=== PATIENT | female | born 1950 | race Caucasian/White ===

== ENCOUNTER → 2016-12-24 | Outpatient (CLI) | payer OTHER, BC ==
[~2016-12-24] MED LIST: ASPI81TA21 PO; BND25 PO; CALC1TAB9 PO; COEN90TA PO; CTP/1 PO; ERGO500037 PO; FURO-85 PO; GABA-112 PO; LOSA1TAB38 PO; METO1TAB69 PO; MULT-190 PO; OMEG10007 PO; POTA20TA16 PO; VERA1TAB PO; VITACAP37 PO; [UNRECOGNIZED DRUG - OTHER] PO
[2016-12-24 11:12] LABS: INFLUENZA A PCR Neg for Influ A (NEG); INFLUENZA B PCR Neg for Influ B (NEG)
== END | disposition home or self-care (01) ==
LOC: C.LAB1850 08:57
PROVIDERS: ATTEND Family Medicine
DX: R05 Cough (principal)

== ENCOUNTER → 2016-12-24 | Outpatient (CLI) | payer OTHER, BC ==
--- NOTE | 2016-12-24 09:30 | DIAGNOSTIC IMAGING REPORT ---
CHEST 2 VIEWS ROUTINE CLINICAL HISTORY: R05 Cough cough x 3 weeks E X0D E [id number] cough. Fever. COMPARISON STUDY: 03/17/2015 FINDINGS: The bones soft tissues and hemidiaphragms are normal. The cardiomediastinal silhouette is normal. The lungs are clear. The pulmonary vasculature is normal. IMPRESSION: Negative chest. Electronically signed by: Dong Zheng M.D. 12/24/2016 9:28 AM Dictated Date/Time: 12/24/2016 9:28 AM
== END | disposition home or self-care (01) ==
LOC: C.RAD1850 09:08
PROVIDERS: ATTEND Family Medicine
DX: R05 Cough (principal)

== ENCOUNTER → 2017-01-09 | Outpatient (CLI) | payer OTHER, BC ==
[2017-01-09 13:08] LABS: URINE APPEARANCE CLEAR (CLEAR); URINE BILIRUBIN NEG (NEG); URINE COLOR YELLOW; URINE NITRITE NEG (NEG); URINE PH 6.5 (4.5-7.5); UROBILINOGEN NEG (NEG)
[2017-01-09 13:10] LABS: MANUAL MICROSCOPIC REQUIRED? NO; REVIEW REQ? NO
[2017-01-09 13:11] LABS: HEMATOCRIT 41.5 % (37-47); MEAN CELL VOLUME 96.7 fL (80-100); MEAN CORPUSCULAR HEMOGLOBIN 31.9 pg (25-34); MEAN PLATELET VOLUME 11.4 fL (7.4-10.4); PLATELET COUNT 250 K/uL (130-400); RED BLOOD COUNT 4.29 M/uL (4.2-5.4); WHITE BLOOD COUNT 5.56 K/uL (4.8-10.8)
--- NOTE | 2017-01-09 13:21 | DIAGNOSTIC IMAGING REPORT ---
CHEST 2 VIEWS ROUTINE HISTORY: Cough. COMPARISON: Chest 12/24/2016. FINDINGS: Cardiac silhouette remains mildly enlarged. No focal lung consolidations to suggest pneumonia. No pleural effusions. No pneumothorax. IMPRESSION: No significant change compared to the prior study. No acute process. Stable mild cardiomegaly. Electronically signed by: Lobo Fernandez M.D. 01/09/2017 1:19 PM Dictated Date/Time: 01/09/2017 1:18 PM
[2017-01-09 13:30] LABS: BLOOD UREA NITROGEN 18 mg/dl (7-18); CREATININE 0.93 mg/dl (0.60-1.20)
[2017-01-09 13:43] LABS: ESTIMATED AVERAGE GLUCOSE 105 mg/dl; HA1C FLAG Normal (Normal)
[2017-01-09 13:57] LABS: BLOOD UREA NITROGEN 18 mg/dl (7-18); BUN/CREATININE RATIO 20.4 (10-20); CARBON DIOXIDE 25 mmol/L (21-32); CHLORIDE 104 mmol/L (98-107); CHOLESTEROL 201 mg/dl (0-200); CREATININE 0.89 mg/dl (0.60-1.20); GLUCOSE 89 mg/dl (70-99); POTASSIUM 3.9 mmol/L (3.5-5.1); SODIUM 140 mmol/L (136-145); URIC ACID 5.2 mg/dl (2.6-7.2)
[2017-01-09 14:00] LABS: CHOLESTEROL/HDL RATIO 3.3; HDL CHOLESTEROL 61 mg/dl; LDL CHOLESTEROL CALCULATED 101 mg/dl; PHOSPHORUS 2.7 mg/dl (2.5-4.9); TRIGLYCERIDES 196 mg/dl (0-150); VERY LOW DENSITY LIPOPROT CALC 39 mg/dl
[2017-01-09 14:10] LABS: CREATININE, URINE < 13.0 mg/dl; URINE TOTAL PROTEIN < 5.0 mg/dl (0-11.9)
--- NOTE | 2017-01-14 10:38 | CODING QUERY MEDICAL NECESSITY ---
SUPPORTING DIAGNOSIS NEEDED A supporting diagnosis is required for the test/procedure performed on this patient in order for us to be reimbursed by the patient's insurance. Please provide a supporting diagnosis for the following test/procedure listed below next to the test name along with your signature. *If there is no additional diagnosis for this patient that would support the following test/procedure please document that below next to the test/procedure. Test(s)/Procedure(s) that require a supporting diagnosis: * GLYCATED HEMOGLOBIN DIAGNOSIS: * DOS: 01/09/17 Provider Signature: Date: Thank you Alisa Montano Health Information Management Once completed, please kindly fax back to [phone] For questions please call [phone]
== END | disposition home or self-care (01) ==
LOC: C.LAB1850 11:44
PROVIDERS: ATTEND Family Medicine
DX: R05 Cough (principal); M54.16 Radiculopathy, lumbar region; M48.06 Spinal stenosis, lumbar region; E78.1 Pure hyperglyceridemia; E78.5 Hyperlipidemia, unspecified; M10.9 Gout, unspecified; E55.9 Vitamin D deficiency, unspecified; I12.9 Hypertensive chronic kidney disease with stage 1 through stage 4 chronic kidney disease, or unspecified chronic kidney disease; R60.9 Edema, unspecified; N18.2 Chronic kidney disease, stage 2 (mild); R73.01 Impaired fasting glucose

== ENCOUNTER → 2017-01-13 | Outpatient (CLI) | payer OTHER, BC ==
--- NOTE | 2017-01-13 13:10 | DIAGNOSTIC IMAGING REPORT ---
LUMBAR SPINE MRI HISTORY: LUMBAR SPINAL STENOSIS, RADICULOPATHY TECHNIQUE: Multiplanar multisequence MRI of the lumbar spine was performed without the use of contrast. COMPARISON: Lumbar spine 01/14/2012. FINDINGS: For the purpose of the report the L5-S1 disc space will be located on axial image 27 of 30. There is stable 3 mm of anterolisthesis of L3 on L4. There is moderate to severe disc space narrowing at L4-L5. There are severe disc space narrowing at L1-L2 with degenerative endplate changes. There is mild disc space narrowing at L3-L4. The conus terminates at the T12 level. Mild dextroscoliosis. L5 is measured to be a transitional vertebra with partial sacralization and pseudarthrosis of the right transverse process. This remains unchanged. The visualized retroperitoneal soft tissues are unremarkable. L1-L2: Small broad-based posterior disc bulge without significant central canal narrowing. There is moderate left-sided neural foraminal narrowing. L2-L3: No significant central canal or neural foraminal narrowing. L3-L4: Broad-based posterior disc bulge with ligamentum and facet hypertrophy resulting in severe central canal narrowing. The thecal sac measures 4 mm in AP diameter. There is mild left-sided neural foraminal narrowing. L4-L5: Broad-based posterior disc bulge with right greater than left facet hypertrophy. There is associated diffuse epidural lipomatosis resulting in moderate compression/deformity of the thecal sac. However, the bony canal is only mildly compromised. There is severe right-sided neural foraminal narrowing. L5-S1: No significant central canal or neural foraminal narrowing. IMPRESSION: 1. A broad-based posterior disc bulge with ligamentum and facet hypertrophy at L3-L4 resulting in severe central canal or neural foraminal narrowing. 2. A broad-based posterior disc bulge with right greater than left facet hypertrophy at L4-L5 with only mild compromise of the bony central canal. However, there is associated diffuse epidural lipomatosis at this location resulting in moderate compression deformity of the thecal sac. There is also severe right-sided neural foraminal narrowing. 3. Grade I anterolisthesis of L3 on L4, unchanged. 4. Mild dextroscoliosis. 5. Additional findings as described above. Electronically signed by: Lobo Fernandez M.D. 01/13/2017 1:09 PM Dictated Date/Time: 01/13/2017 12:52 PM
== END | disposition home or self-care (01) ==
LOC: C.OPENMRI 10:26
PROVIDERS: ATTEND Physical Medicine & Rehabilitation
DX: M48.06 Spinal stenosis, lumbar region (principal); M51.16 Intervertebral disc disorders with radiculopathy, lumbar region; M43.16 Spondylolisthesis, lumbar region

== ENCOUNTER → 2017-02-07 | Outpatient (CLI) | payer OTHER, BC ==
--- NOTE | 2017-02-07 11:11 | DIAGNOSTIC IMAGING REPORT ---
ULTRASOUND OF THE THYROID GLAND CLINICAL HISTORY: Palpable lump in the neck. COMPARISON STUDY: No priors. TECHNIQUE: Real-time, grayscale, and color flow sonography of the thyroid gland is performed utilizing a high-frequency linear transducer. Images are reviewed in the transverse and longitudinal planes. FINDINGS: Right lobe: The right lobe of the thyroid gland is normal in size and homogeneous in echotexture, measuring 4.0 x 1.9 x 2.0 cm. Left lobe: The left lobe of the thyroid gland is normal in size and homogeneous in echotexture, measuring 3.8 x 1.6 x 2.1 cm. Isthmus: The thyroid isthmus is normal in appearance and measures 0.4 cm in AP diameter. Soft tissues: No abnormality is identified in the left lower neck at the site of palpable concern. No regional lymphadenopathy is identified. IMPRESSION: Unremarkable sonographic assessment of the thyroid gland. See above. Electronically signed by: Wilfredo Valentine M.D. 02/07/2017 11:10 AM Dictated Date/Time: 02/07/2017 11:08 AM
== END | disposition home or self-care (01) ==
LOC: C.ULTR 10:18
PROVIDERS: ATTEND Internal Medicine
DX: R22.1 Localized swelling, mass and lump, neck (principal)

== ENCOUNTER → 2017-03-14 | Outpatient (CLI) | payer OTHER, BC ==
[~2017-03-14] MED LIST changes: +ALBUAER INH; -BND25 PO; +COEN1CAP7 PO; +DIPH25CA5 PO; +FOLI1TAB7 PO; +LEVO50TA6 PO; +METO100T44 PO; -METO1TAB69 PO
--- NOTE | 2017-03-14 16:32 | MAMMOGRAPHY REPORT ---
BILATERAL DIGITAL SCREENING MAMMOGRAM TOMOSYNTHESIS WITH CAD: 03/14/2017 CLINICAL HISTORY: Routine screening. Patient has no complaints. TECHNIQUE: Breast tomosynthesis in addition to standard 2D mammography was performed. Current study was also evaluated with a Computer Aided Detection (CAD) system. COMPARISON: Comparison is made to exams dated: 03/13/2016 mammogram, 03/13/2015 mammogram, 03/26/2016 m ammogram, 03/26/2016 ultrasound, 03/10/2014 mammogram, and 03/09/2013 mammogram - [facility]. BREAST COMPOSITION: There are scattered areas of fibroglandular density in both breasts. FINDINGS: No suspicious masses, calcifications, or areas of architectural distortion are noted in e ither breast. There has been no significant interval change compared to prior exams. Bilateral nodu larity and bilateral benign-appearing calcifications are not significantly changed. IMPRESSION: ACR BI-RADS CATEGORY 2: BENIGN There is no mammographic evidence of malignancy. A 1 year screening mammogram is recommended. The p atient will receive written notification of the results. Approximately 10% of breast cancers are not detected with mammography. A negative mammographic repor t should not delay biopsy if a clinically suggestive mass is present. Rose Medina M.D. ah/:03/14/2017 16:11:22 Bar Captain: Maylin STAPELS)(M), [facility] letter sent: Normal 1/2 BI-RADS Code: ACR BI-RADS Category 2: Benign
== END | disposition home or self-care (01) ==
LOC: C.MAMM 09:23
PROVIDERS: ATTEND Internal Medicine
DX: Z12.31 Encounter for screening mammogram for malignant neoplasm of breast (principal)

== ENCOUNTER → 2017-04-04 | Outpatient (CLI) | payer OTHER, BC | END | disposition home or self-care (01) | LOC: C.LAB1850 12:45 | PROVIDERS: ATTEND Internal Medicine | DX: Z11.59 Encounter for screening for other viral diseases (principal); R06.02 Shortness of breath ==

== ENCOUNTER → 2017-05-09 | Outpatient (CLI) | payer OTHER, BC ==
--- NOTE | 2017-05-10 06:01 | PAP/PSG TECHNICIAN REPORT ---
[facility] Pearl Digger Polysomnogram Report Study name: None Report date: 05/10/2017 Study date: 05/09/2017 Referring Physician: WILFREDO MCKEON DO, DO Name: RIMMA GOODEN Interpreting Physician: Wilfredo Mckeon D.O. Date of : 1950 [place] Digger: DEDRICK Freeman. Sex: Female Age: 67 StudyType: PSG Weight: 283 lbs Height: 67 years, Height 4' 7" Neck Circum: 16.5 inches BMI: 65.77 Medications: ASPIRIN 81 MG, BENADRYL, CITRACAL, CLONIDINE 0.1 MG, CO Q 10 200 MG, FISH OIL, FOLIC ACID 400 MCG, FUROSEMIDE 20 MG, GABAPENTIN 100 MG, LEVOTHYROXINE 50 MCG, LOSARTAN 100 MG, METOPROLOL 100 MG, POTASSIUM CHLORIDE 20 MEQ, TRAMADOL 50 MG, VENTOLIN HFA, VERAPAMIL 80 MG, VIT D 80919 UNIT, VIT E, PRESER VISION Patient History 67 yr-old female here for a diagnostic sleep study in room 6. She has noticed being short of breath for about a year. Patients notices snoring and decreases in breathing at night. Patients Midkiff Sleepiness Scale Score is 8/24. Parameters Monitored NPSG: E1-M2, E2-M1, Fp1-M2, Fp2-M1, F3-M2, F4-M2, F4-M1, C3-M2, C4-M2, C4-M1, O1-M2, O2-M2, O2-M1, T3-M2, T4-M1, P3-M2, P4-M1, CHIN1, CHIN2, HR, EKG, Legs, PFLOW, SNOR, FLOW, CFLOW, Tidal Volume, THOR, ABDO, SpO2, PLTH, CPRESS, ETCO2 Wave, ETCO2, pH Sleep Architecture Sleep Stages Time at Lights Off 9:18:40 PM STAGES Time (min.) TST (%) Time at Lights On 5:49:40 AM Wake 123.0 -- Total Recording Time (TRT) 510.50 min. N1 50.5 13 Total Sleep Period (TSP) 489.0 min. N2 223.0 58 Total Sleep Time (TST) 387.5min. N3 53.5 14 Awake Time 123.0 min. REM 60.5 16 Wake after Sleep Onset 102.0 min. Sleep Efficiency (SE) 76 % Sleep Onset Latency (DWAN) 21.5 min. Number of Stage 1 Shifts None Awakenings 38 Stage Changes 158 Number of REM periods 17 REM 60.5 16 REM Latency 99.0 min. NREM 327.0 84 Body Position Analysis Supine Right Left Side Prone Vertical Total Sleep Time (min.) 0.0 12.0 111.0 123.00 327.3 3.1 Total Sleep Time (%) 0% 3% 29% 32 68% N/A% Total Sleep Time REM (min.) 0.0 0.0 19.5 None 41.0 0.0 Total Sleep Time NREM (min.) 0.0 12.0 91.5 None 223.5 0.0 Intermittent Wake (min.) 0.0 27.1 30.0 None 62.8 3.1 Total Sleep Period (%) 0% None None None None None Arousals Myoclonus (PLM) * Events Count Index Events Count Index Spontaneous 6 1 Events Awake (PLMW) 91 44.4 Respiratory 12 2.5 Events Asleep w/ Arousal (PLMA) 15 2.3 PLM 15 2 Events Asleep w/o Arousal (PLMS) 78 12.1 Snoring 26 4 Total Asleep 93 14.4 Total 59 9 Total 184 22 Respiratory Analysis * CA OA MA CH H RERA Total Count 0 21 0 0 121 0 142 Index 0.0 3.3 0.0 0 18.7 0 22.0 Mean Duration 0.0 20.2 0.0 0.00 19.6 0.0 19.7 Longest Duration 0.0 36.3 0.0 0.00 0.0 0.0 46.5 Respiratory Event Summary Total Supine ~Supine Right Left Prone REM NREM Apneas Count 21 N/A 21 0 8 13 18 3 Index 3.3 N/A 3 0.0 4.3 3 18 1 Hypopneas (4% Desat) Count 121 N/A 121 0 43 78 30 91 Index 18.7 N/A 19 0.0 23.2 17.7 29.8 16.7 Apneas & All Hypopneas Count 142 N/A 142 0 51 91 48 94 Index 22.0 N/A 22 0 28 21 47.6 17.2 Respiratory Events (Cat Wagon Operator+All Hyp+RERA) Count 142 N/A 142 0 51 91 48 94 Index 22.0 N/A 22 0.0 27.6 20.6 47.6 17.2 Respiratory Related Arousal Count 12 N/A 16 0 10 6 7 9 Index 2.5 N/A 2 0 5 1 7 2 Snoring Analysis Supine Right Left Prone REM NREM Total Snore duration 98.6 min Snores count N/A 21 1,114 2,743 572 3,306 3,878 Snore mean duration 1.5 Sec Snores index N/A 105 602 622 567.3 606.6 600.5 TST with snoring (%) 25.4% Desaturation Event Summary: Minimum %SpO2 Event Count Mean/Min/Max Duration(sec.) Desaturation Index % Time In Bed > 90 162 24.0 / 7.0 / 60.0 30.9 63.5 86 - 90 56 20.2 / 5.0 / 51.0 21.4 31.6 81 - 85 8 13.9 / 6.8 / 22.0 41.8 2.3 76 - 80 5 11.5 / 6.5 / 22.0 34.2 1.8 71 - 75 0 N/A 0.0 0.7 66 - 70 0 N/A 0.0 0.1 61 - 65 0 N/A 0.0 0.0 56 - 60 0 N/A 0.0 0.0 51 - 55 0 N/A 0.0 0.0 < 50 0 N/A 0.0 0.0 Total REM NREM Awake <50% 0.0 min. 0.0 min. 0.0 min. 0.0 min. 51 - 60% 0.0 min. 0.0 min. 0.0 min. 0.0 min. 61 - 70% 0.6 min. 0.5 min. 0.1 min. 0.0 min. 71 - 80% 12.1 min. 8.4 min. 1.7 min. 2.0 min. 81 - 90% 168.3 min. 26.2 min. 132.0 min. 10.0 min. 91 - 100% 315.0 min. 25.1 min. 192.0 min. 97.9 min. Average 91 87 91 93 Minimum SpO2 66 66 69 70 Desaturation Event Index 22.4 43.6 21.1 16.1 # Desat. Events below 89% 130 43 76 11 Time(%) with Saturation below 89% 17.4 5.2 10.5 1.7 Time(min.) with Saturation below 89% 86.1 25.6 52.3 8.2 Time (mins) REM (mins) NREM (mins) % of TST SpO2 Below 90% 150 44 N106 29.6 SpO2 Below 88% 43 0 0 12 Heart Rate Analysis Min (bpm) Max (bpm) Average (bpm) Awake 48 127 67 NREM 54 86 64 REM 57 86 66 Overall 54 86 64 Supplemental O2 Values Minimum O2 level: None Value Start Time End Time Pearl Digger Comments Mrs. Gooden slept in the right, left, and supine positions. PVC's noted.No PLMs noted. No bruxism noted. Snoring was noted and scored as a 3 on a scale of 0 through 5. (0=no snoring, 5=snoring loud enough to be heard through a closed door or down the galvan way) Mrs. Gooden awoke to use the restroom once during the night. Mrs. Gooden stated, that was a normal night. The final report will be interpreted and signed by a sleep physician. The completed physician report will then be placed in the patient medical record. Therapy (cm H2O) 0 TIB (min.) 510.5 TST (min.) 387.5 Sleep Onset (min.) 21.5 REM Onset From Sleep (min.) 99.0 Sleep Efficiency % 76 Wakefulness (%) 24 Wakefulness (min.) 123.0 NREM 1 (%) 13 NREM 1 (min.) 50.5 NREM 2 (%) 58 NREM 2 (min.) 223.0 NREM 3 (%) 14 NREM 3 (min.) 53.5 REM (%) 16 REM (min.) 60.5 # Arousals 59 Arousal Index 9 # Snore 3,878 Snore Index 600.5 AHI 22.0 AHI Supine N/A AHI Non-Supine 22 NREM AHI 17.2 REM AHI 47.6 RDI 22.0 # Obstructive Apnea 21 # Central Apnea 0 # Mixed Apnea 0 # Hypopneas 121 RERAs 0 Total Respiratory Events 152 Time Below SpO2 89% (min.) 77.9 Mean NREM SpO2 (%) 91 Mean REM SpO2 (%) 87 Mean Sleep SpO2 (%) 90 Min NREM SpO2 (%) 69 Min REM SpO2 (%) 66 Position Supine (min.) 0.0 Position Non-supine (min.) 387.5 LM Index Sleep 14.4 LM Index NREM 15.6 LM Index REM 7.9 Mean Heart Rate (bpm) 64 Min Heart Rate (bpm) 54
--- NOTE | 2017-05-14 07:43 | POLYSOMNOGRAPH REPORT ---
REFERRING PHYSICIAN: Dr. Meza CLINICAL DATA: The patient is a 67-year-old female with a BMI severely elevated at 65.77. She has a history of snoring, shortness of breath, and excessive daytime somnolence. There is a history of napping 1 or 2 times per day. Her [place] score was 8. This was an in-lab diagnostic sleep study. SLEEP ARCHITECTURE: The patient's total sleep period was 489 minutes. The total sleep time was 387.5 minutes. The sleep efficiency was moderately reduced to 76%. The sleep onset latency was top normal at 21.5 minutes. Wake after sleep onset was elevated at 102 minutes. The REM latency was normal at 99 minutes. Sleep consisted of stage N1 13%, stage N2 58%, stage N3 14%, and stage REM 16%. AROUSAL DATA: The patient had a total of 59 arousals including 6 spontaneous, 12 respiratory, 15 PLM, and 26 snoring arousals. The arousal index was 9. PLM DATA: The patient had 93 periodic limb movements of sleep for an index of 14.4. There were 15 arousals associated with the limb movements for a PLM arousal index of 2.3. EKG: The patient's underlying cardiac rhythm was normal sinus. She had occasional PACs and PVCs. The cardiac rates ranged from 54-86 beats per minute with an average of 64 beats per minute. RESPIRATORY DATA: The patient had a total of 142 respiratory events including 21 obstructive apneas and 121 hypopneas. Hypopneas were scored according to the 4% desaturation rule. The longest apnea was 36.3 seconds. The mean duration of hypopnea was 19.6 seconds. The apnea hypopnea index of 22 represents moderate sleep apnea. OXIMETRY DATA: The average saturation was 91%. The minimum saturation was 66%. There a total of 43 minutes with saturations less than 88%. Most of the desaturations occurred during or in close approximation to REM sleep. GLORY HOLE TENDER'S COMMENTS: The patient slept in the right, left, and supine positions. No bruxism noted. Snoring was noted and scored as a 3 on a scale of 0 through 5. The patient awoke to use the restroom once during the night. IMPRESSION: 1. Obstructive sleep apnea -- moderate. 2. Periodic limb movement disorder. COMMENTS: The patient had moderate sleep apnea as noted. This was associated with intermittent episodes of significant hypoxia. She had a mild degree of cardiac arrhythmia. Her sleep overall was poorly consolidated. Treatment is indicated in light of the patient's symptoms and her comorbidities, which include hypertension. RECOMMENDATIONS: 1. It is advised that the patient be given a trial of nasal CPAP. 2. Weight reduction is advised in light of the severe elevation of body mass index at 65.77. 3. Further suggestions will be made following the trial of nasal CPAP.
== END | disposition home or self-care (01) ==
LOC: C.NEUR 21:00
PROVIDERS: ATTEND Internal Medicine Pulmonary Disease
DX: G47.33 Obstructive sleep apnea (adult) (pediatric) (principal)

== ENCOUNTER → 2017-05-30 | Outpatient (CLI) | payer OTHER, BC ==
[~2017-05-30] MED LIST changes: -ALBUAER INH; +BND25 PO; -COEN1CAP7 PO; -DIPH25CA5 PO; -FOLI1TAB7 PO; -LEVO50TA6 PO; -METO100T44 PO; +METO1TAB69 PO
== END | disposition home or self-care (01) ==
LOC: C.LAB1850 15:37
PROVIDERS: ATTEND Internal Medicine
DX: R06.02 Shortness of breath (principal); E78.5 Hyperlipidemia, unspecified; R73.01 Impaired fasting glucose; E66.01 Morbid (severe) obesity due to excess calories

== ENCOUNTER → 2017-06-15 | Outpatient (CLI) | payer OTHER, BC ==
--- NOTE | 2017-06-16 05:43 | PAP/PSG TECHNICIAN REPORT ---
[facility] [employer] Polysomnogram Report Study name: None Report date: 06/16/2017 Study date: 06/15/2017 Referring Physician: WILFREDO MCKEON DO, DO Name: RIMMA BAKER Interpreting Physician: Wilfredo Mckeon D.O. Date of : 1950 [employer] Physical Education Teacher: DEDRICK Mario. Sex: Female Age: 67 StudyType: PSG PAP Weight: 283 lbs Height: 67 years, Height 4' 7" Neck Circum:16.5inches BMI: 65.77 Medications: ASA 81mg, Benadryl, Citracal, Clonidine 0.1mg, CO Q 10 200mg, Fish Oil, Folic Acid 400mcg, Furosemide 20mg, Gabapentin 100mg, Levothyroxine 50mcg, Losartan 100mg, Metoprolol 100mg, Potassium Chloride 20MEQ, Tramadol 50mg, Ventolin HFA, Verapamil 80mg, Vit [id number], Vit E. Preser Vision Patient History Study started on room air with 4cwp cpap in room #6. 67 yr old female here tonight for a new titration study. She had a diagnostic psg done here on 05/09/17 that had an AHI of 22.0. Her ESS=8/24. Her neck circ=16.5inches Parameters Monitored NPSG: E1-M2, E2-M1, Fp1-M2, Fp2-M1, F3-M2, F4-M2, F4-M1, C3-M2, C4-M2, C4-M1, O1-M2, O2-M2, O2-M1, T3-M2, T4-M1, P3-M2, P4-M1, CHIN1, CHIN2, HR, EKG, Legs, PFLOW, SNOR, FLOW, CFLOW, Tidal Volume, THOR, ABDO, SpO2, PLTH, CPRESS, ETCO2 Wave, ETCO2, pH Sleep Architecture Sleep Stages Time at Lights Off 9:49:42 PM STAGES Time (min.) TST (%) Time at Lights On 5:27:42 AM Wake 66.0 -- Total Recording Time (TRT) 458.00 min. N1 20.5 5 Total Sleep Period (TSP) 443.0 min. N2 200.0 51 Total Sleep Time (TST) 392.0min. N3 62.5 16 Awake Time 66.0 min. REM 109.0 28 Wake after Sleep Onset 51.0 min. Sleep Efficiency (SE) 86 % Sleep Onset Latency (DAWN) 15.0 min. Number of Stage 1 Shifts None Awakenings 14 Stage Changes 66 Number of REM periods 4 REM 109.0 28 REM Latency 166.0 min. NREM 283.0 72 Body Position Analysis Supine Right Left Side Prone Vertical Total Sleep Time (min.) 3.2 125.0 0.0 125.00 312.6 0.0 Total Sleep Time (%) 0% 32% 0% 32 68% N/A% Total Sleep Time REM (min.) 0.0 40.5 0.0 None 68.5 0.0 Total Sleep Time NREM (min.) 0.0 84.5 0.0 None 198.5 0.0 Intermittent Wake (min.) 3.2 17.2 0.0 None 45.6 0.0 Total Sleep Period (%) 0% None None None None None Arousals Myoclonus (PLM) * Events Count Index Events Count Index Spontaneous 9 1 Events Awake (PLMW) 90 81.8 Respiratory 1 0.0 Events Asleep w/ Arousal (PLMA) 7 1.1 PLM 6 1 Events Asleep w/o Arousal (PLMS) 55 8.4 Snoring 3 0 Total Asleep 62 9.5 Total 19 3 Total 152 20 Respiratory Analysis * CA OA MA CH H RERA Total Count 4 2 0 0 10 0 16 Index 0.6 0.3 0.0 0 1.5 0 2.4 Mean Duration 17.9 14.5 0.0 0.00 21.7 0.0 19.9 Longest Duration 24.1 16.9 0.0 0.00 0.0 0.0 27.8 Respiratory Event Summary Total Supine ~Supine Right Left Prone REM NREM Apneas Count 6 N/A 6 2 N/A 4 4 2 Index 0.9 N/A 1 1.0 N/A 1 2 0 Hypopneas (4% Desat) Count 10 N/A 10 8 N/A 2 8 2 Index 1.5 N/A 2 3.8 N/A 0.4 4.4 0.4 Apneas & All Hypopneas Count 16 N/A 16 10 N/A 6 12 4 Index 2.4 N/A 2 5 N/A 1 6.6 0.8 Respiratory Events (Substitute Bus Driver+All Hyp+RERA) Count 16 N/A 16 10 N/A 6 12 4 Index 2.4 N/A 2 4.8 N/A 1.3 6.6 0.8 Respiratory Related Arousal Count 1 N/A 0 0 N/A 0 0 0 Index 0.0 N/A 0 0 N/A 0 0 0 Snoring Analysis Supine Right Left Prone REM NREM Total Snore duration 16.9 min Snores count N/A 4 N/A 725 3 726 729 Snore mean duration 1.4 Sec Snores index N/A 2 N/A 163 1.7 153.9 111.6 TST with snoring (%) 4.3% Desaturation Event Summary: Minimum %SpO2 Event Count Mean/Min/Max Duration(sec.) Desaturation Index % Time In Bed > 90 36 27.3 / 7.8 / 60.0 5.0 96.9 86 - 90 2 20.1 / 17.3 / 23.0 9.1 3.0 81 - 85 0 N/A 0.0 0.1 76 - 80 0 N/A 0.0 0.0 71 - 75 0 N/A 0.0 0.0 66 - 70 0 N/A 0.0 0.0 61 - 65 0 N/A 0.0 0.0 56 - 60 0 N/A 0.0 0.0 51 - 55 0 N/A 0.0 0.0 < 50 0 N/A 0.0 0.0 Total REM NREM Awake <50% 0.0 min. 0.0 min. 0.0 min. 0.0 min. 51 - 60% 0.0 min. 0.0 min. 0.0 min. 0.0 min. 61 - 70% 0.0 min. 0.0 min. 0.0 min. 0.0 min. 71 - 80% 0.0 min. 0.0 min. 0.0 min. 0.0 min. 81 - 90% 13.7 min. 6.1 min. 6.6 min. 1.0 min. 91 - 100% 433.1 min. 102.9 min. 275.6 min. 54.6 min. Average 93 93 93 94 Minimum SpO2 82 84 89 82 Desaturation Event Index 4.7 8.3 1.7 11.8 # Desat. Events below 89% 8 7 N/A 1 Time(%) with Saturation below 89% 0.4 0.4 0.0 0.0 Time(min.) with Saturation below 89% 1.7 1.6 0.0 0.1 Time (mins) REM (mins) NREM (mins) % of TST SpO2 Below 90% 15 13 N2 0.7 SpO2 Below 88% 4 0 0 0 Heart Rate Analysis Min (bpm) Max (bpm) Average (bpm) Awake 56 127 65 NREM 52 102 60 REM 54 68 60 Overall 52 102 60 Supplemental O2 Values Minimum O2 level: None Value Start Time End Time [employer] Teacher Comments Berkley Lowe slept in the right, supine and prone positions. Cardiac arrhythmia and a few leg movements noted. No bruxism noted. CPAP was initiated at +4 CMH2O and up-titrated to a level of +[id number]. A small Quattro Air full face mask by [employer] was used during titration. She used the restroom once during the night. She stated that she slept about the same as usual. The final report will be interpreted and signed by a sleep physician. The completed physician report will then be placed in the patient medical record. Therapy Event: Therapy (cm H20) 4 5 6 7 8 9 10 Total Time at Pressure (min.) 25.7 6.2 13.0 16.3 124.0 98.1 174.7 TST at Pressure (min.) 10.7 6.2 13.0 16.3 113.5 97.1 135.2 # Periods 1 1 1 1 1 1 1 Sleep Onset (min.) 15.0 0.0 0.0 0.0 0.0 0.0 0.0 REM Onset (min.) N/A N/A N/A N/A 119.8 0.0 0.0 Sleep Efficiency % 41 100 100 100 91 99 77 Wakefulness (%) 58.4 0.0 0.0 0.0 8.5 1.0 22.6 Wakefulness (min.) 15.0 0.0 0.0 0.0 10.5 1.0 39.5 NREM 1 (%) 3.9 0.0 0.0 0.0 10.5 1.5 2.9 NREM 1 (min.) 1.0 0.0 0.0 0.0 13.0 1.5 5.0 NREM 2 (%) 37.7 100.0 4.7 0.0 69.4 40.2 33.2 NREM 2 (min.) 9.7 6.2 0.6 0.0 86.0 39.5 58.0 NREM 3 (%) 0.0 0.0 95.3 100.0 8.3 23.9 0.0 NREM 3 (min.) 0.0 0.0 12.4 16.3 10.3 23.5 0.0 REM (%) 0.0 0.0 0.0 0.0 3.3 33.3 41.3 REM (min.) 0.0 0.0 0.0 0.0 4.1 32.6 72.2 # Arousals 0 0 0 1 13 1 4 Arousal Index 0.0 0.0 0.0 3.7 6.9 0.6 1.8 # Snore 53 47 149 217 253 4 6 Snore Index 298.2 453.2 688.0 799.5 133.8 2.5 2.7 AHI 0.0 0.0 0.0 3.7 2.6 3.1 2.2 AHI Supine N/A N/A N/A N/A N/A N/A N/A AHI Non-Supine 0.0 0.0 0.0 3.7 2.6 3.1 2.2 NREM AHI 0.0 0.0 0.0 3.7 0.5 1.9 0.0 REM AHI N/A N/A N/A N/A 58.2 5.5 4.2 RDI 0.0 0.0 0.0 3.7 2.6 3.1 2.2 # Obstructive 0 0 0 0 0 2 0 # Central Ap 0 0 0 0 0 0 4 # Mixed 0 0 0 0 0 0 0 # Hypopneas 0 0 0 1 5 3 1 RERAS 0 0 0 0 0 0 0 Total Respiratory Events 0 0 0 1 5 5 5 Time Below SpO2 89.00% (min.) 0.0 0.0 0.0 0.0 0.4 0.1 1.0 Mean NREM SpO2 (%) 92 92 91 92 93 92 94 Mean REM SpO2 (%) N/A N/A N/A N/A 91 92 94 Mean Sleep SpO2 (%) 92 92 91 92 93 92 94 Min NREM SpO2 (%) 90 90 90 89 90 89 89 Min REM SpO2 (%) N/A N/A N/A N/A 88 88 84 Position Supine (min.) 0.0 0.0 0.0 0.0 0.0 0.0 0.0 Position Non-supine (min.) 10.7 6.2 13.0 16.3 113.5 97.1 135.2 LM Index Sleep 0.0 0.0 0.0 0.0 28.6 1.2 2.7 LM Index NREM 0.0 0.0 0.0 0.0 28.0 0.9 1.0 LM Index REM N/A N/A N/A N/A 43.6 1.8 4.2 Mean Heart Rate (bpm) 62 61 62 62 62 58 58 Min Heart Rate (bpm) 58 59 59 60 52 52 53
--- NOTE | 2017-06-18 17:39 | Sleep Study ---
Sleep Study Report Date of Service: 06/15/2017 Sleep Study Report Clinical data: The patient is a 67-year-old female with a BMI of 65.77. She had a diagnostic sleep study done May 10, 2017 showing moderate sleep apnea with an apnea- hypopnea index of 22. [facility] titration study. Her symptoms were those of snoring and shortness of Breath. Sleep architecture: The total sleep. Was 443.0 minutes. The total sleep time was 392.0 minutes. Sleep efficiency was 86 percent which is mildly decreased. The sleep latency was normal at 15 minutes. Wake after sleep onset was 51 minutes. REM latency was prolonged to 166 minutes. Sleep consisted of stage N1 5 percent, stage N2 51 percent, stage N3 16 percent , stage REM 28 percent. Arousal data: the patient had a total of 19 arousals including 9 spontaneous arousals, 1 respiratory arousal, 6 PLM arousals, and 3 snoring arousals. The arousal index was 3. PLM data: Patient had 62 periodic limb movements of sleep for an index of 9.5. There were 7 arousals associated with limb movements for a PLM arousal index of 1.1. EKG: The underlying cardiac rhythm was normal sinus. There were rare extrasystoles. Most of these were PACs with a few PVCs. The cardiac rate ranged from 52 to 102 beats per minute. The average heart rate was 60 beats per minute. Respiratory data: The patient's nocturnal events were treated with nasal CPAP which was titrated to a final pressure of 10 centimeters. For the night she had 16 respiratory events including 2 obstructive apneas, 4 central apneas, and 10 hypopneas. The apnea-hypopnea index was 2.4. The longest apnea was 24.1 seconds. The mean duration of the hypopneas was 21.7 seconds. Oximetry data: The average saturation was 93 percent. The minimum saturation was 82 percent. Was a total of only 1.7 minutes with saturations less than 89 percent. Seed Laboratory Technician comments: Patient slept on the right, supine, and prone positions. Cardiac arrhythmias a few leg movements were noted. No bruxism noted. CPAP was initiated at 4 centimeters and up titrated to a final pressure of 10 centimeters. A [employer] Quattro Air full face mask size small was utilized. Impressions: 1. Obstructive sleep xnudg-[id number] with nasal CPAP at 10 centimeters Comments: The patient appeared to do well with nasal CPAP therapy. Her sleep efficiency was improved compared with her 1st night study. The amount of REM sleep increased significantly during this study. There was resolution of her sleep disordered breathing. At the final pressure of 10 centimeters her apnea- hypopnea index was only 2.2 events per hour. There was no significant oxygen desaturations. Recommendations: 1. It is advised that the patient be started on nasal CPAP at 10 centimeters. 2. It is suggested that she be ordered a [employer] Quattro air full face mask size small. 3. Patient has a severe elevation of body mass index 65.77. A weight reduction program is advised. 4. If possible the patient should avoid sleeping in the supine position. During this titration study she had very little time supine and she prefers sleeping in other positions. 5. Patient should be seen between day 31 day 90 after receiving her CPAP. Copies To 1: Wilfredo Mccollum DO; Pedro Wheeler M.D.
== END | disposition home or self-care (01) ==
LOC: C.NEUR 21:00
PROVIDERS: ATTEND Internal Medicine Pulmonary Disease
DX: G47.33 Obstructive sleep apnea (adult) (pediatric) (principal); R06.00 Dyspnea, unspecified; E66.9 Obesity, unspecified

== ENCOUNTER → 2017-07-17 | Outpatient (CLI) | payer OTHER, BC ==
[2017-07-17 12:30] LABS: MEAN CELL VOLUME 98.9 fL (80-100); MEAN CORPUSCULAR HEMOGLOBIN 33.1 pg (25-34); MEAN CORPUSCULAR HGB CONC 33.5 g/dl (32-36); MEAN PLATELET VOLUME 11.8 fL (7.4-10.4); PLATELET COUNT 261 K/uL (130-400); RED BLOOD COUNT 4.35 M/uL (4.2-5.4)
[2017-07-17 12:45] LABS: ALT/SGPT 36 U/L (12-78); AST/SGOT 17 U/L (15-37); BLOOD UREA NITROGEN 21 mg/dl (7-18); BUN/CREATININE RATIO 20.9 (10-20); CALCIUM 8.1 mg/dl (8.5-10.1); CARBON DIOXIDE 29 mmol/L (21-32); CHLORIDE 107 mmol/L (98-107); GLUCOSE 101 mg/dl (70-99); POTASSIUM 4.2 mmol/L (3.5-5.1); SODIUM 141 mmol/L (136-145)
[2017-07-17 12:55] LABS: ALB/GLOB RATIO 0.9 (0.9-2); ALKALINE PHOSPHATASE 94 U/L (45-117)
[2017-07-17 13:01] LABS: URINE APPEARANCE CLEAR (CLEAR); URINE BILIRUBIN NEG (NEG); URINE COLOR YELLOW; URINE NITRITE NEG (NEG); URINE PH 7.5 (4.5-7.5); URINE SPECIFIC GRAVITY 1.007 (1.000-1.030); UROBILINOGEN NEG (NEG)
[2017-07-17 13:08] LABS: CREATININE, URINE < 13.0 mg/dl; URINE TOTAL PROTEIN < 5.0 mg/dl (0-11.9)
[2017-07-17 13:13] LABS: MANUAL MICROSCOPIC REQUIRED? NO; REVIEW REQ? NO
== END | disposition home or self-care (01) ==
LOC: C.LAB1850 10:04
PROVIDERS: ATTEND Internal Medicine Nephrology
DX: E66.9 Obesity, unspecified (principal); R60.9 Edema, unspecified; E55.9 Vitamin D deficiency, unspecified; N18.2 Chronic kidney disease, stage 2 (mild); I12.9 Hypertensive chronic kidney disease with stage 1 through stage 4 chronic kidney disease, or unspecified chronic kidney disease

== ENCOUNTER → 2017-08-01 | Outpatient (CLI) | payer OTHER, BC ==
[2017-08-01 12:22] LABS: LYME DISEASE AB IGG NEG (NEG); LYME DISEASE AB IGM NEG (NEG)
== END | disposition home or self-care (01) ==
LOC: C.LAB1850 09:22
PROVIDERS: ATTEND Internal Medicine
DX: M25.50 Pain in unspecified joint (principal)

== ENCOUNTER → 2017-10-08 | Outpatient (CLI) | payer OTHER, BC ==
[~2017-10-08] MED LIST changes: +ALBUAER INH; -BND25 PO; +COEN1CAP7 PO; -COEN90TA PO; +DIPH25CA5 PO; +FOLI1TAB7 PO; +LEVO50TA6 PO; +METO100T44 PO; -METO1TAB69 PO; -VITACAP37 PO; -[UNRECOGNIZED DRUG - OTHER] PO
--- NOTE | 2017-10-08 09:25 | DIAGNOSTIC IMAGING REPORT ---
C-SPINE ROUTINE 4 OR 5 VIEWS CLINICAL HISTORY: Left cervical radiculopathy. No known injury. COMPARISON STUDY: No previous studies for comparison. FINDINGS: There is reversal of the normal cervical lordosis. Vertebral body heights are maintained. No fracture or suspicious lesion is identified on this exam. There is moderate multilevel disc space narrowing and osteophytosis. There is moderate facet arthrosis and extensive uncovertebral hypertrophy. Multilevel neural foraminal narrowing is noted. IMPRESSION: 1. No cervical spine fracture 2. Moderate to severe multilevel degenerative disc disease and facet arthrosis of the cervical spine. 3. Reversal of the normal cervical lordosis. Electronically signed by: Campbell Chua M.D. 10/08/2017 9:23 AM Dictated Date/Time: 10/08/2017 9:21 AM
[2017-10-08 10:13] LABS: C-REACTIVE PROTEIN 0.46 mg/dl (0-0.29); RHEUMATOID FACTOR < 10.0 U/mL (0-15)
== END | disposition home or self-care (01) ==
LOC: C.RAD1850 08:33
PROVIDERS: ATTEND Internal Medicine
DX: M25.50 Pain in unspecified joint (principal)

== ENCOUNTER → 2017-10-09 | Day surgery (SDC) | payer OTHER, BC ==
[2017-09-15 11:43] VITALS: Ht 142.2 cm; Wt 127.3 kg
[~2017-10-09] VITALS: Ht 142.2 cm; Wt 127.3 kg
[~2017-10-09] MED LIST changes: +IOPAMIDOL INJ 61% 15 ML VIAL ONE; +LIDOCAINE HCL 1% MPF 5 ML VIAL ONE; +SODIUM CHLORIDE 0.9% INJ 10 ML VIAL ONE
--- NOTE | 2017-10-09 14:35 | History & Physical Bridge - SC ---
H&P Re-Evaluation Bridge Note: I have examined the patient, reviewed the History & Physical and in the interval since the performance of the History & Physical I have noted the following changes of clinical significance: No changes noted
[2017-10-09 15:03] VITALS: TEMP 37.1
--- NOTE | 2017-10-09 15:11 | Discharge Instructions ---
Discharge Instructions Date of Service Oct 09, 2017. Visit Reason for Visit: Lumbar Radiculopathy Discharge Discharge Diagnosis / Problem: leg and back pain Discharge Goals Goal(s): Decrease discomfort, Improve function Medications Stopped Medications Name(s): ASPIRIN STOPPED Friday10-05-17 Activity Recommendations Activity Limitations: resume your previous activity Anesthesia . Post Anesthesia Instructions: If you have had General Anesthesia or IV Sedation: * Do not drive today. * Resume driving when surgeon permits. * Do not make important decisions or sign legal documents today. * Call surgeon for: 1. Temperature elevations greater than 101 degrees F. 2. Uncontrollable pain. 3. Excessive bleeding. 4. Persistent nausea and vomiting. 5. Medication intolerance (nausea, vomiting or rash). * For nausea and vomiting use only clear liquids such as: tea, soda, bouillon until nausea subsides, then gradually increase diet as tolerated. * If you have any concerns or questions, call your surgeon's office. If physician is unavailable and it is an emergency, call 911 or go to the nearest emergency room. . Diet Recommendations Recommended Home Diet: resume previous diet Procedures Procedures Performed: LUMBAR EPIDURAL STEROID INJECTION Pending Studies Studies pending at discharge: no Medical Emergencies . Who to Call and When: Medical Emergencies: If at any time you feel your situation is an emergency, please call 911 immediately. . Non-Emergent Contact Non-Emergency issues call your: Specialist . . "Provider Documentation" section prepared by Anthony Santos. .
[2017-10-09 15:13] VITALS: BP 174/92; PULSE 80; O2SAT 96
--- NOTE | 2017-10-09 15:22 | OPERATIVE REPORT ---
DATE OF OPERATION: 10/09/2017 PREOPERATIVE DIAGNOSIS: Multifactorial stenosis at L4-L5, lower extremity radiculopathy grade 1, L3-L4 spondylolisthesis. POSTOPERATIVE DIAGNOSIS: Same. PROCEDURE: Left paramedian L5-S1 intralaminar epidural steroid injection under fluoroscopic guidance. SURGEON: Dr. Santos. INDICATIONS: The patient is a 67-year-old white female who had received an epidural injection 1-2 to 2 years ago, responded very favorably. Just recently she has been having increasing pain and increasing radicular symptoms. She presents today for an injection into the low back area. PHYSICAL EXAMINATION: GENERAL: Pleasant female seated comfortably. MUSCULOSKELETAL: Lumbar paraspinal muscles were palpated. Some tenderness was noted on the lower lumbar spine. Sciatic notch sensitivity was present on the right. She had limitations with forward flexion, some mild pain inhibition with right lower extremity testing. CONSENT: Verbal and written consent was obtained from the patient. Risks and benefits were reviewed. Risks include but are not limited to epidural abscess, epidural hematoma, allergic reaction, dural puncture. The patient wishes to proceed. PROCEDURE: The patient was taken back to the special procedures room of [facility]. She was maintained in a prone position. Backside was cleansed with Betadine x3 and a dry sterile dressing was applied. Fluoroscope was used to identify the L5-S1 intralaminar space. Overlying skin on the left side was anesthetized with 4 mL of lidocaine 1% with a 25 gauge 1.5-inch needle. A 20 gauge 6 inch Tuohy needle was then directed down towards the intralaminar space. It was advanced under lateral fluoroscopic guidance. Loss of resistance was noted at a depth of 11 cm. Isovue 300 contrast was injected in which demonstrated epidural uptake pattern which was confirmed with both AP and lateral views. She then underwent injection after negative aspiration of 40 mg of Depo-Medrol and 4 mL of preservative free sodium chloride. Injection was well tolerated. DISPOSITION: 1. The patient is taken out into the discharge recovery area where she will be discharged home once discharge criteria have been met. 2. Follow up in the [facility] office in 2-4 weeks. I attest to the content of the Intraoperative Record and any orders documented therein. Any exception s are noted below.
== END | disposition home or self-care (01) ==
LOC: X.SURG 13:35
PROVIDERS: ATTEND Physical Medicine & Rehabilitation
DX: M43.16 Spondylolisthesis, lumbar region (principal); M43.17 Spondylolisthesis, lumbosacral region

== ENCOUNTER → 2017-12-03 | Day surgery (SDC) | payer OTHER, BC ==
[2017-11-11 13:08] VITALS: Ht 142.2 cm; Wt 127.3 kg
[~2017-12-03] VITALS: Ht 142.2 cm; Wt 127.3 kg
[~2017-12-03] MED LIST changes: -FOLI1TAB7 PO; +FOLI1TAB8 PO; -GABA-112 PO; +NRN100 PO
--- NOTE | 2017-12-03 14:16 | Discharge Instructions ---
Discharge Instructions Date of Service Dec 03, 2017. Visit Reason for Visit: Lumbar Radiculopathy Discharge Discharge Diagnosis / Problem: bilateral leg pain Discharge Goals Goal(s): Decrease discomfort, Improve function Medications Stopped Medications Name(s): stopped aspirin Friday Activity Recommendations Activity Limitations: resume your previous activity Anesthesia . Post Anesthesia Instructions: If you have had General Anesthesia or IV Sedation: * Do not drive today. * Resume driving when surgeon permits. * Do not make important decisions or sign legal documents today. * Call surgeon for: 1. Temperature elevations greater than 101 degrees F. 2. Uncontrollable pain. 3. Excessive bleeding. 4. Persistent nausea and vomiting. 5. Medication intolerance (nausea, vomiting or rash). * For nausea and vomiting use only clear liquids such as: tea, soda, bouillon until nausea subsides, then gradually increase diet as tolerated. * If you have any concerns or questions, call your surgeon's office. If physician is unavailable and it is an emergency, call 911 or go to the nearest emergency room. . Diet Recommendations Recommended Home Diet: resume previous diet Procedures Procedures Performed: Lumbar Epidural Steroid Injection Pending Studies Studies pending at discharge: no Medical Emergencies . Who to Call and When: Medical Emergencies: If at any time you feel your situation is an emergency, please call 911 immediately. . Non-Emergent Contact Non-Emergency issues call your: Specialist . . "Provider Documentation" section prepared by Anthony Santos. .
--- NOTE | 2017-12-03 14:32 | OPERATIVE REPORT ---
DATE OF OPERATION: 12/03/2017 PREOPERATIVE DIAGNOSES: Grade 1 L3-L4 spondylolisthesis, multifactorial stenosis at L4-L5 with bilateral lower extremity radiculopathies. POSTOPERATIVE DIAGNOSES: Same. PROCEDURE: Left paramedian L5-S1 intralaminar epidural steroid injection under fluoroscopic guidance. INDICATIONS: The patient is a 67-year-old female that had a 30% improvement from an epidural in September. Decision is made to have her return again today to try to stack the effects to provide her with more improvement of radicular pain down the legs. PHYSICAL EXAMINATION: Pleasant female seated comfortably. She had nontenderness to palpation of her lumbar paraspinal muscles. She has some tenderness to palpation in the sciatic notches. She had no pain inhibition with straight leg testing, negative seated straight leg raises and no focal weakness. CONSENT: Verbal and written consent was obtained from the patient. Risks and benefits were reviewed. Risks include but are not limited to epidural abscess, epidural hematoma, allergic reaction, dural puncture. The patient wishes to proceed. DESCRIPTION OF PROCEDURE: The patient was taken back to the special procedures room of [facility]. She was maintained in a prone position. Backside was cleansed with Betadine x3 and a dry sterile dressing was applied. Fluoroscope was used to identify the L5-S1 intralaminar space and the overlying skin was anesthetized with 4 mL of lidocaine 1% with a 25 gauge 1.5-inch needle. The patient then underwent placement of the needle in the left L5-S1 intralaminar space. It was advanced under lateral fluoroscopic guidance, a 20 gauge 6 inches needle was advanced, loss of resistance was noted at a depth of just over 10 cm. Isovue 300 contrast 0.5 mL was injected in which demonstrated epidural uptake spread. She then underwent injection after negative aspiration of 40 mg of Depo-Medrol, 4 mL of preservative free sodium chloride. Injection reproduced a familiar transient radicular sensation down the left leg. DISPOSITION: 1. The patient is taken out into the discharge recovery area where she will be discharged home once discharge criteria have been met. 2. Follow up in the [facility] office in 4 weeks' time. I attest to the content of the Intraoperative Record and any orders documented therein. Any exception s are noted below.
[2017-12-03 14:39] VITALS: BP 163/78; PULSE 107; TEMP 36.9; O2SAT 97
== END | disposition home or self-care (01) ==
LOC: X.SURG 12:32
PROVIDERS: ATTEND Physical Medicine & Rehabilitation
DX: M43.16 Spondylolisthesis, lumbar region (principal); M48.061 Spinal stenosis, lumbar region without neurogenic claudication; M54.16 Radiculopathy, lumbar region; Z79.82 Long term (current) use of aspirin

== ENCOUNTER → 2018-01-19 | Outpatient (CLI) | payer OTHER, BC ==
[~2018-01-19] MED LIST changes: -IOPAMIDOL INJ 61% 15 ML VIAL ONE; -LIDOCAINE HCL 1% MPF 5 ML VIAL ONE; -SODIUM CHLORIDE 0.9% INJ 10 ML VIAL ONE
[2018-01-19 10:02] LABS: HEMOGLOBIN 13.2 g/dL (12.0-16.0); MEAN CORPUSCULAR HEMOGLOBIN 32.7 pg (25-34); PLATELET COUNT 271 K/uL (130-400); RED CELL DISTRIBUTION WIDTH CV 13.7 % (11.5-14.5); RED CELL DISTRIBUTION WIDTH SD 49.7 fL (36.4-46.3); WHITE BLOOD COUNT 5.48 K/uL (4.8-10.8)
[2018-01-19 10:36] LABS: ALBUMIN 3.5 gm/dl (3.4-5.0); ALT/SGPT 31 U/L (12-78); AST/SGOT 21 U/L (15-37); BLOOD UREA NITROGEN 28 mg/dl (7-18); CALCIUM 7.9 mg/dl (8.5-10.1); CARBON DIOXIDE 25 mmol/L (21-32); CREATININE 1.08 mg/dl (0.60-1.20); GLUCOSE 95 mg/dl (70-99); POTASSIUM 4.3 mmol/L (3.5-5.1); SODIUM 138 mmol/L (136-145)
[2018-01-19 10:39] LABS: ALKALINE PHOSPHATASE 91 U/L (45-117); TOTAL PROTEIN 7.6 gm/dl (6.4-8.2)
== END | disposition home or self-care (01) ==
LOC: C.LAB1850 08:51
PROVIDERS: ATTEND Internal Medicine Nephrology
DX: I12.9 Hypertensive chronic kidney disease with stage 1 through stage 4 chronic kidney disease, or unspecified chronic kidney disease (principal); E55.9 Vitamin D deficiency, unspecified; R60.9 Edema, unspecified; Z68.44 Body mass index [BMI] 60.0-69.9, adult; N18.2 Chronic kidney disease, stage 2 (mild)

== ENCOUNTER → 2018-03-16 | Outpatient (CLI) | payer OTHER, BC ==
[~2018-03-16] MED LIST changes: +ASPI-319 PO; -ASPI81TA21 PO; +POTA-639 PO; -POTA20TA16 PO
--- NOTE | 2018-03-17 07:39 | MAMMOGRAPHY REPORT ---
BILATERAL DIGITAL SCREENING MAMMOGRAM TOMOSYNTHESIS WITH CAD: 03/16/2018 CLINICAL HISTORY: Routine screening. Patient has no complaints. TECHNIQUE: Breast tomosynthesis in addition to standard 2D mammography was performed. Current study was also evaluated with a Computer Aided Detection (CAD) system. COMPARISON: Comparison is made to exams dated: 03/14/2017 mammogram, 03/13/2016 mammogram, 03/13/2015 m ammogram, 03/10/2014 mammogram, 03/09/2013 mammogram, and 03/06/2012 mammogram - [facility] enter. BREAST COMPOSITION: There are scattered areas of fibroglandular density in both breasts. FINDINGS: There is a stable intramammary lymph node in the right upper outer quadrant posteriorly. S cattered benign rodlike, round and rim calcifications diffusely throughout each breast. No new suspi cious mass, architectural distortion or cluster of microcalcifications is seen. IMPRESSION: ACR BI-RADS CATEGORY 1: NEGATIVE There is no mammographic evidence of malignancy. A 1 year screening mammogram is recommended. The pa tient will receive written notification of the results. Approximately 10% of breast cancers are not detected with mammography. A negative mammographic report should not delay biopsy if a clinically suggestive mass is present. Virginia Mosley M.D. ay/:03/16/2018 12:44:14 Glass Polisher: Jackeline STAPLES)([place]), [facility] letter sent: Normal 1/2 BI-RADS Code: ACR BI-RADS Category 1: Negative
== END ==
LOC: C.MAMM 11:35
PROVIDERS: ATTEND Internal Medicine
DX: Z12.31 Encounter for screening mammogram for malignant neoplasm of breast (principal)

== ENCOUNTER → 2018-04-13 | Outpatient (CLI) | payer OTHER, BC ==
[~2018-04-13] MED LIST changes: +AMT/25 PO; +BUPR-83 PO; +ERGO500011 PO; -ERGO500037 PO; +GABA-113 PO; -LEVO50TA6 PO; -NRN100 PO
== END | disposition home or self-care (01) ==
LOC: C.LAB1850 11:30
PROVIDERS: ATTEND Physician Assistant
DX: R39.9 Unspecified symptoms and signs involving the genitourinary system (principal)

== ENCOUNTER 2019-04-28 07:48 | Inpatient (IN) ==
--- NOTE | 2019-04-26 11:33 | Anesthesiology Consultation ---
Date of Service April 26, 2019 Assessment & Plan (1) Encounter for pre-operative examination: Patient not reached for nurse interview at time of clearance. Please review meds/allergies/hx AM DOS. Chart Review Chart Review: Acceptable Risk for Surgery and Patient NOT seen in Pre Admission Testing History Surgery Operation Date: 04/28/19 11:10 Proposed Procedures p Right Elbow Lateral Collateral Ligament Repair - Charanjit Whipple MD Height/Weight Height: 4 ft 8 in Weight: 134 kg (BMI 66) Allergies Allergy/AdvReac Type Severity Reaction Status Date / Time ibuprofen Allergy Intermediate KIDNEY Verified 04/19/19 16:16 RELATED NSAIDS (Non-Steroidal Allergy Intermediate RASH Verified 04/19/19 16:16 Anti-Inflamma Sulfa (Sulfonamide Allergy Unknown hives/rash Verified 04/19/19 16:16 Antibiotics) ketorolac AdvReac Unknown PCP Verified 04/19/19 16:16 ADVISED TO AVOID DUE TO RENAL FXN SONI Inhibitors AdvReac Cough Unverified 04/19/19 16:29 levofloxacin [From Levaquin] AdvReac muscle Unverified 04/19/19 16:29 aches Medications Home Medications Medication Instructions Recorded Confirmed Last Taken albuterol sulfate [Proventil HFA] 2 puff INHALATION Q6H PRN 11/21/18 04/19/19 Unknown aspirin [Aspir-81] 81 mg PO HS 11/21/18 04/19/19 04/18/19 calcium citrate-vitamin D3 2 tab PO DAILY 11/21/18 04/19/19 04/18/19 [Citracal + D Maximum] cetirizine [Zyrtec] 10 mg PO HS 11/21/18 04/19/19 04/18/19 clonidine HCl 0.1 mg PO BID 11/21/18 04/19/19 04/19/19 coQ10 (ubiquinol) 200 mg PO DAILY 11/21/18 04/19/19 04/18/19 furosemide 20 mg PO BID 11/21/18 04/19/19 04/19/19 losartan 100 mg PO QAM 11/21/18 04/19/19 04/19/19 metoprolol succinate 100 mg PO QAM 11/21/18 04/19/19 04/19/19 mometasone-formoterol [Dulera] 2 puff INHALATION DAILY PRN 11/21/18 04/19/19 Unknown omega 9-wui-qmi-fish oil [Fish Oil] 1 cap PO TID 11/21/18 04/19/19 04/19/19 potassium chloride 20 meq PO QAM 11/21/18 04/19/19 04/19/19 vit C,F-Qm-dmzeu-lutein-zeaxan 1 tab PO BID 11/21/18 04/19/19 04/18/19 [PreserVision AREDS-2] gabapentin 100 mg PO HS 04/19/19 04/19/19 04/18/19 oxycodone 5 mg PO Q4H #20 tab 04/19/19 Unknown Past Medical History Medical History Hyperlipidemia HTN (hypertension) Fall Chronic kidney disease Stage II, baseline Cr 1.2 - 1.3 dating back to at least 2010. Recently this had improved to 0.8. Fibromyalgia Morbid obesity No pertinent family history Past Family History Family History Other No pertinent family history Past Surgical History Surgical History H/O: hysterectomy H/O colonoscopy H/O shoulder surgery Rotator cuff repair, [facility] 2010. [place] without complications. Social History Smoking Status: Never smoker Testing Laboratory Results 04/23/19 WBC: 5.86 H/H: 12.6/38.4 PLATELETS: 257 SODIUM: 141 POTASSIUM: 4.4 CHLORIDE: 107 CO2: 29 BUN: 19 CREATININE: 1.05 GLUCOSE: 97 Electrocardiogram Date: 04/23/19 Findings: + SB @ (58) Moderate voltage criteria for LVH, maybe normal variant. Nonspecific ST and T wave abnormality. Compared with EKG of 06/03/2012, nonspecific T wave abnormality now evident in anterior lateral leads. Chest X-Ray Date: 12/16/18 Findings: + NAD
[~2019-04-28 07:48] MED LIST changes: -ALBUAER INH; -AMT/25 PO; -ASPI-319 PO; -BUPR-83 PO; -CALC1TAB9 PO; +CEFAZOLIN 3000MG 65 ML IV SCH; -COEN1CAP7 PO; -CTP/1 PO; -DIPH25CA5 PO; -ERGO500011 PO; -FOLI1TAB8 PO; -FURO-85 PO; -GABA-113 PO; -LOSA1TAB38 PO; +LR 15ML/HR IV SCH; -METO100T44 PO; -MULT-190 PO; -OMEG10007 PO; -POTA-639 PO; +ROPIVACAINE 0.5% 5 MG/ML 30 ML VIAL ONE; -VERA1TAB PO
--- NOTE | 2019-04-28 09:35 | History & Physical Bridge Note ---
Date of Service April 28, 2019 History & Physical Bridge Note I have examined the patient, reviewed the History & Physical and in the interval since the performance of the History & Physical I have noted the following changes of clinical significance: no changes noted
[2019-04-28] MEDS ORDERED: fentaNYL citrate 100 MCG/2 ML VIAL ONE (10:04)
[2019-04-28] MEDS ORDERED: SUCCINYLCHOLINE CHLORIDE 20 MG/ML 10 ML VIAL ONE (10:04)
[2019-04-28] MEDS ORDERED: ROCURONIUM BROMIDE 10 MG/ML 5 ML VIAL ONE (10:04)
[2019-04-28] MEDS ORDERED: LIDOCAINE 2% 20 MG/ML 5 ML SYR IV ONE (10:04)
[2019-04-28] MEDS ORDERED: PROPOFOL IV EMULSION 10 MG/ML 20 ML VIAL IV ONE (10:04)
[2019-04-28] MEDS ORDERED: MIDAZOLAM HCL 1 MG/ML 2ML VIAL ONE (10:08)
[2019-04-28] MEDS ORDERED: BACITRACIN INJ 50,000 UNIT VIAL ONE (10:25)
[2019-04-28] MEDS ORDERED: fentaNYL citrate 100 MCG/2 ML VIAL IV PRN (11:09)
[2019-04-28] MEDS ORDERED: ONDANSETRON INJ 2 MG/ML 2 ML VIAL IV PRN (11:09)
[2019-04-28] MEDS ORDERED: ATROPINE SULFATE 0.1 MG/ML 10ML SYR IV PRN (11:09)
[2019-04-28] MEDS ORDERED: ePHEDrine sulfate 50 MG/ML AMP IV PRN (11:09)
[2019-04-28] MEDS ORDERED: ONDANSETRON INJ 2 MG/ML 2 ML VIAL ONE (13:42)
[2019-04-28] MEDS ORDERED: GLYCOPYRROLATE 0.2 MG/ML VIAL ONE (13:42)
[2019-04-28] MEDS ORDERED: PHENYLEPHRINE HCL 10 MG/ML VIAL ONE (13:42)
[2019-04-28] MEDS ORDERED: ePHEDrine sulfate 50 MG/ML SYR ONE (13:42)
--- NOTE | 2019-04-28 14:34 | Fluoroscopy Report ---
FL elbow RT 2V CLINICAL HISTORY: Ligament repair. COMPARISON STUDY: MRI of the right elbow April 22, 2019. FLUOROSCOPY TIME: 31 seconds. FLUOROSCOPIC IMAGES: 5. FINDINGS: These images demonstrate postoperative findings within the right elbow with placement of rivers rgical drains. There are skin deven. There are no unexpected radiopaque foreign bodies. IMPRESSION: Expected postoperative findings within right elbow. Electronically signed by: Campbell Chua M.D. 04/28/2019 2:33 PM
--- NOTE | 2019-04-28 15:02 | Post Operative Brief Note ---
Immediate Post Op Note v1 Date of Surgery April 28, 2019 Pre & Post Diagnosis Operation Date: 04/28/19 10:10 Pre-Op Diagnosis: Right Elbow Instability Post-Op Diagnosis: Right Elbow Instability Procedure Operation Date: 04/28/19 10:10 Actual Procedures p Right Elbow Medial and Lateral Collateral Ligament Repair(Right) - Charanjit Whipple MD Surgeon Charanjit Whipple MD Branch Rental Manager tyson Estimated Blood Loss 25 Findings Consistent with Post-Op Diagnosis Drains Hemovac Drain Anesthesia Type General Regional Complications none Disposition Accompanied Patient To Recovery: No Disposition: Recovery Room
--- NOTE | 2019-04-28 15:11 | Operative Report ---
Post Operative Report Pre & Post Diagnosis Operation Date: 04/28/19 10:10 Pre-Op Diagnosis: Right Elbow Instability Post-Op Diagnosis: Right Elbow Instability Procedure Operation Date: 04/28/19 10:10 Actual Procedures p Right Elbow Medial and Lateral Collateral Ligament Repair(Right) - Charanjit Whipple MD Surgeon Charanjit Whipple MD Agricultural Engineering Teacher tyson [place]MONDS Estimated Blood Loss 25 Findings Consistent with Post-Op Diagnosis Specimens None Anesthesia Type General Regional Complications none Disposition Accompanied Patient To Recovery: No Disposition: Recovery Room Description of Procedure Patient was taken to the operating room and placed under general anesthesia. She was given a preoperative peripheral nerve block. She was given 3 g of IV Ancef for surgical prophylaxis. Time out was performed prior to surgery. She was prepped and draped in routine sterile fashion. I was present during the entire case and assisted with positioning, exposure, fixation, closure, wound VAC application, dressings and splinting. Please see Dr. Whipple's operative report for further detail. Patient was awakened and transferred to the recovery room in stable condition. I attest to the content of the Intraoperative Record and any orders documented therein. Any exceptions are noted below.
--- NOTE | 2019-04-28 15:38 | Anesthesiology Progress Note ---
Date of Service April 28, 2019 Anesthesia Post Procedure Vital Signs Vital Signs: Temp Pulse Resp BP Pulse Ox 04/28/19 15:25 80 21 137/74 95 04/28/19 15:15 74 21 139/83 98 04/28/19 15:06 36.3 C L 76 16 136/74 96 04/28/19 09:03 96 04/28/19 09:02 89 L 04/28/19 08:21 36.8 C 65 20 133/73 93 Transfer of Care Handoff Completed per policy Notes Mental Status: alert / awake / arousable and participated in evaluation Patient Amnestic to Procedure: Yes Nausea / Vomiting: adequately controlled Pain: adequately controlled Airway Patency, RR, SpO2: stable & adequate BP & HR: stable & adequate Hydration State: stable & adequate Anesthetic Complications: no major complications apparent and Pt Satisfied with anesthetic care Notes: block is functioning well.
[2019-04-28] MEDS ORDERED: TRAMADOL HCL 50 MG TABLET PO PRN (16:33)
[2019-04-28] MEDS ORDERED: NALOXONE HCL 0.4 MG/1 ML VIAL/CARP IV PRN (16:33)
[2019-04-28] MEDS ORDERED: BISACODYL 10 MG SUPP PR PRN (16:33)
[2019-04-28] MEDS ORDERED: ALBUTEROL HFA 8 GM INHALER INH PRN (16:33)
[2019-04-28] MEDS ORDERED: METOCLOPRAMIDE HCL INJ 5 MG/ML 2 ML VIAL IV PRN (16:33)
[2019-04-28] MEDS ORDERED: MAGNESIUM HYDROXIDE SUSP 30 ML UDC PO PRN (16:33)
[2019-04-28] MEDS: SODIUM CHLORIDE 0.9% 1000ML 1,000 ML IV SCH (16:47)
[2019-04-28] MEDS: CEFAZOLIN 2000MG 2,000 MG/15 ML SYR IV SCH (17:52)
[2019-04-28] MEDS: INDOMETHACIN 25 MG CAP PO SCH (17:53)
[2019-04-28] MEDS: ACETAMINOPHEN 500 MG TAB PO SCH (20:51)
[2019-04-28] MEDS: ASPIRIN 81 MG ECTAB PO SCH (20:52)
[2019-04-28] MEDS: GABAPENTIN 100 MG CAP PO SCH (20:52)
[2019-04-28] MEDS: DOCUSATE SODIUM 100 MG CAP PO SCH (20:52)
[2019-04-28] MEDS: cloNIDine HCl 0.1 MG TAB PO SCH (20:53)
[2019-04-28] MEDS: SENNA 8.6 MG TAB PO SCH (20:53)
[2019-04-28] MEDS ORDERED: NON-FORMULARY MEDICATION (Vit C,E-Zn-Coppr-Lutein-Zeaxan [Preservision Areds-2] 1 TAB) PO SCH (21:00)
[2019-04-29] MEDS: CEFAZOLIN 2000MG 2,000 MG/15 ML SYR IV SCH (00:31)
[2019-04-29] MEDS: HYDROmorphone INJ 0.5 MG/0.5 ML SYR IV PRN ×2 (01:57→04:40)
[2019-04-29] MEDS: SODIUM CHLORIDE 0.9% 1000ML 1,000 ML IV SCH (01:57)
--- NOTE | 2019-04-29 02:10 | Operative Report ---
DATE OF OPERATION: 04/28/2019 DATE OF SURGERY: 04/28/2019 PREOPERATIVE DIAGNOSIS: Right elbow instability status post simple dislocation with tears of the flexor pronator tendon ulnar collateral ligament, extensor tendon and lateral collateral ligaments. POSTOPERATIVE DIAGNOSIS: Right elbow instability status post simple dislocation with tears of the flexor pronator tendon ulnar collateral ligament, extensor tendon and lateral collateral ligaments. PROCEDURE: Right elbow examination under anesthesia and repair of lateral ligament and extensor tendon repair of medial flexor tendon and ulnar collateral ligament. SURGEON: Dr. Whipple. SOLDERING INSPECTOR: Yazmin Sánchez PA-C. ANESTHESIA: General with block. INDICATIONS OF PROCEDURE: The patient is a 69-year-old female who is a little over a week out from a closed simple dislocation with minor avulsion involving avulsion fracture involving the coronoid. There are some age indeterminate chronic appearing ossicles laterally. Her elbow was reduced, but not concentrically. CAT scan and MRI have been done showing no significant bony fracture, but she does have injury to both the medial and lateral ligaments and tendons, which I think renders her elbow unstable. I have attempted different positions and flexion of the elbow. She is morbidly obese and this limits our ability to position splint the elbow. After discussion of treatment alternatives, risks, and benefits, she has elected to proceed with operative intervention. Informed consent obtained. The patient identified. Preop surgical time out performed. Preop dose of IV antibiotics given. She was positioned supine on the OR table. After the anesthetic was administered, bony prominences were inspected and padded. The torso was shifted to the right side of the table and tourniquet was applied high on the right arm. Fluoroscopic guidance was utilized. DVT prophylaxis with foot pumps. The examination revealed she was missing about 30 degrees of terminal extension but had flexion to about 125-130 maximum. When the elbow was held in extension, the radial head subluxated and the joint dislocated. This could be corrected by placing the elbow in about 100+ degrees of flexion; however, even at this level, there remained posterior sag of the ulna causing joint distraction. Additionally, there was gross side to side elbow laxity. The elbow was reduced in mid flexion. The joint was congruous. The limb exsanguinated with the Esmarch, tourniquet inflated to 250 mmHg after a routine prep and drape. The tourniquet was let down for about 7 minutes after the lateral side was fixed and then reinflated when the medial side was fixed. Total tourniquet time was about 120 minutes let down at the conclusion of the operation. The arm was large, necessitating large incisions. I made about 10 cm incision centered over the lateral epicondyle. Blunt dissection was performed out to the subcutaneous tissues to the extensor fascia and small flaps were elevated to visualize. A small rent was identified with some softness over the lateral epicondyle. I then went identified the radial head which at this point was noted to be easily subluxating off of the humerus with mid extension and supination. I made a division on the upper half of the radial head coursing along the base of the extensor carpi radialis longus. After making this longitudinal division, it was noted that the epicondyle was bare. This division was carried along the lateral ridge of the humerus distally. I then went ahead and examined the elbow. In pronation and in about 90 degrees of flexion, the elbow was reduced. Hematoma was evacuated. Retractors were inserted in the joint and the joint was irrigated. I then went ahead and placed a 2.9 JuggerKnot at the center of axis of rotation of the capitellum, which was just posterior to the epicondyle itself. I then did a Krackow slide weave x2 with 2 different sutures from this anchor. I took full thickness bites were appropriate coursing down along the length of the lateral collateral ligament for about 3-4 cm. I then went ahead and reduced the elbow joint visually with the pronation and flexion beyond 100 degrees. The sutures were then tied and this resulted in stability. The elbow could be supinated and extended to -30 and did not dislocate. The medial side of the elbow remained unstable and she had a fair amount of gross side to side laxity. The elbow did not dislocate, but the medial side could gave open a good centimeter or more with valgus stress. I then elected to go ahead and repaired the medial side. The tourniquet was let down for a few minutes. Hemostasis was obtained on the lateral side which was irrigated and packed with moist sponges. On the medial side of the elbow, I made a 12-14 mm incision. Blunt dissection was performed down through the fat layer, which was about 5 cm thick. Getting down through this fat layer carefully, I identified a large tear in the flexor pronator muscles just distal to the epicondyle with gross instability of the elbow joint. I did identify what I believed was the lateral antebrachial cutaneous nerve exiting out through the fascia anteriorly and this was dissected out and preserved at the level of its fascial opening. The ulnar nerve was identified posteriorly. It was dissected out for a short distance proximally to identify the nerve and then distally down into the muscle. The nerve itself with its actual sheath and tube had been subluxated out of the groove from behind the distal humerus. The nerve was left in situ. Hemorrhagic fat was debrided as there was a fair amount of bruising on the medial side of the elbow. I then identified the bald spot on the distal and slightly posterior aspect of the epicondyle consistent with the attachment of the anterior band of the ulnar collateral ligament. I inserted a 2.9 JuggerKnot angling proximal posterior. I then took full thickness bites up though the ulnar collateral ligament and the flexure pronator muscles. I did this because the tissue on this side was unlike the opposite side was fairly significantly shredded. Two stitches were passed and under direct visualization, I confirmed that they did not impede upon the ulnar nerve. The elbow was then reduced with hyperflexion and supinated which resulted in anatomic alignment of the ulnohumeral joint and the stitches were tied. This substantially improved the medial sided laxity, but the joint was able to be open with stress for a couple millimeters, but definitely much less than it was previously. Soft tissues were kept moist. I then repaired the flexor pronator muscle tendon back down to the epicondyle using #1 Vicryl. I then closed the rent in the flexure pronator mass which was extending longitudinally and distally in the same fashion, closed this with some running #1 Vicryl. The nerve remained in situ and I felt that an in situ decompression would be appropriate and in a transverse position into an area of equally hemorrhagic tissue with disrupted fascia was probably not necessary. The nerve did not subluxate out of the groove and there were no stitches there to impinge upon it as I tuck them down within the tissue. This area was irrigated with sterile saline and then closed using 0 Vicryl and 3-0 Vicryl on the skin. A drain was inserted deep and brought out distally. Skin was closed with deven. On the lateral side, meticulous hemostasis was performed and I went ahead and inserted another 2.9 JuggerKnot proximal on the epicondyle and closed the remainder of the extensor tendon origin back to the epicondyle. This was then oversewn with a 0 Vicryl. Skin closed with 0 Vicryl, 3-0 Vicryl and deven. Fingerprint Clerk fluoroscopic images showing the reduced joint at 30 degrees extension and at about 90 degrees. The joint was stable and not dislocatable and that the posterior sag was eliminated on the lateral view. The arm was cleaned with wet and dry sponges and a Prevena wound VAC was inserted, 1 medial and 1 lateral. The drains were hooked up. A drain was placed deep on the lateral side as well. She was then placed into a posterior splint with the forearm in neutral rotation with the elbow at 95 degrees flexion. She was awakened from anesthesia without difficulty and taken to the recovery room in stable condition. There were no specimens or complications. Counts were correct. Blood loss was 25 mL. At the conclusion of the operation, I spoke to patient's family and informed them of my findings. Postoperative instructions were given. She will be admitted to the hospital overnight for pain control. Her kidney function is normal laboratory fay. We will continue to monitor, but will start her on indomethacin 25 mg t.i.d. p.o. for heterotopic ossification prophylaxis. I do not think that she requires formal DVT prophylaxis at this time. The drains will be pulled in 24-48 hours. The Prevena wound VACs will remain on for 1 week. She will eventually be engaged in physical therapy. Forearm in neutral rotation will stop her at -30 and let her flex as tolerated using a hinged range of motion, elbow brace if this is physically possible. I attest to the content of the Intraoperative Record and any orders documented therein. Any exceptions are noted below. JESSICAD
[2019-04-29] MEDS: OXYCODONE HCL IR 5 MG TAB (IMMEDIATE RELEASE) PO PRN ×4 (03:14→19:58)
[2019-04-29] MEDS: ACETAMINOPHEN 500 MG TAB PO SCH ×5 (04:43→21:50)
[2019-04-29] MEDS: FUROSEMIDE 20 MG TAB PO SCH ×5 (04:43→14:37)
[2019-04-29 07:27] LABS: Hematocrit (blood only) 37.4 % (37-47); Mean Corpuscular Hgb Conc 32.1 g/dL (32-36); Mean Corpuscular Volume 98.4 fL (80-100); Mean Platelet Volume 10.9 fL (7.4-10.4); Platelet Count 248 K/uL (130-400); RDW Coefficient of Variation 13.4 % (11.5-14.5); RDW Standard Deviation 48.3 fL (36.4-46.3)
--- NOTE | 2019-04-29 07:32 | Orthopedic Progress Note ---
Date of Service April 29, 2019 Assessment & Plan (1) Dislocation, elbow closed: Postop day 1-status post ligamentous repair right elbow for closed dislocation We discussed with Dr. Whipple her pain medication and possibly increase the Dilaudid or change it to IV morphine. Regular diet as tolerated. Indocin 25 mg 3 times daily started to prevent heterotopic ossification, will follow daily BUN and creatinine Nonweightbearing right upper extremity. She does have a sling and recommended she wear this. Out of bed as tolerated with assistance. Teds and foot pumps for DVT prophylaxis. Encourage range of motion of her fingers. PT/OT to start today. Case management for disposition. Patient would like to go home with home health. We will plan to adjust pain medication to better control her postoperative pain today. Most likely will be here another day and potential discharge tomorrow if pain better controlled. She didn't want me to loosen or adjust splint today, will re-eval later this afternoon Will discuss findings with Dr. Whipple Present on Admission?: Yes Subjective Patient is sitting up in bed. She states that she has not slept all night due to pain. She has severe pain in her right arm. She states that the block wore off about 1 AM and ever since then she had pain. She did not take anything prior to this due to the block helping so much. She states is a very sharp constant pain. Although the pain is in her elbow. She is not eating anything as she had a little nausea yesterday but that does seem to be improved. She states she just does not feel like it since she is in so much pain. She denies any numbness or tingling in her right hand. She denies feeling like the splint and dressings are too tight. She does have a sling but she thinks that her daughter has it and will ask her to bring it in today. Chest pain or shortness of breath. She has been up to the bathroom. Physical Exam Physical Exam: Exam of right upper extremity: Her splint is clean dry and intact. Hemovac drains x 2 are functioning. Prevena x 2 are functioning. She has pain with any type of movement of her fingers. Distal sensation seems to be normal throughout all of her fingers as compared to the left side. Capillary refill is brisk. Her fingers are warm. Her right upper extremity is elevated on a pillow. She is sitting up in a chair. Results & Data Vital Signs (Past 12 Hours) Vital Signs Temp Pulse Resp BP Pulse Ox 04/29/19 07:00 36.6 C 67 20 118/78 92 04/29/19 03:06 36.4 C L 70 14 135/76 98 04/28/19 23:12 36.6 C 76 14 95/40 L 96 04/28/19 22:00 36.7 C 04/28/19 19:40 36.3 C L 74 20 164/82 H 97 Laboratory Results 04/29/19 04/29/19 Range/Units 06:54 06:54 WBC 7.90 (4.8-10.8) K/uL RBC 3.80 L (4.2-5.4) M/uL Hgb 12.0 (12.0-16.0) g/dL Hct 37.4 (37-47) % MCV 98.4 (80-100) fL MCH 31.6 (25-34) pg MCHC 32.1 (32-36) g/dL RDW Std Deviation 48.3 H (36.4-46.3) fL RDW Coeff of Jose J 13.4 (11.5-14.5) % Plt Count 248 (130-400) K/uL MPV 10.9 H (7.4-10.4) fL Sodium Pending Potassium Pending Chloride Pending Carbon Dioxide Pending Anion Gap Pending BUN Pending Creatinine Pending Est Cr Clr Drug Dosing Pending Est GFR ( Amer) Pending Est GFR (Non-Af Amer) Pending BUN/Creatinine Ratio Pending Glucose Pending Calcium Pending
[2019-04-29 08:00] LABS: BUN Creatinine Ratio 14.6 (10-20); Calcium 7.8 mg/dl (8.5-10.1); Creatinine Clr Calc Pharmacy 52.4 ml/min; Est GFR (African American) 55.4; Est GFR (Non-African American) 47.8; Potassium 3.7 mmol/L (3.5-5.1)
[2019-04-29] MEDS: HYDROmorphone INJ 1 MG/ML SYRINGE IV PRN ×3 (08:17→22:14)
[2019-04-29] MEDS: DOCUSATE SODIUM 100 MG CAP PO SCH ×2 (08:19→21:51)
[2019-04-29] MEDS: cloNIDine HCl 0.1 MG TAB PO SCH ×2 (08:19→21:50)
[2019-04-29] MEDS: POTASSIUM CHLORIDE 20 MEQ TABCR PO SCH (08:20)
[2019-04-29] MEDS: METOPROLOL SUCC 50MG EXT REL TAB PO SCH (08:20)
[2019-04-29] MEDS: LOSARTAN POTASSIUM 50 MG TAB PO SCH (08:20)
[2019-04-29] MEDS: INDOMETHACIN 25 MG CAP PO SCH ×4 (08:20→15:56)
[2019-04-29] MEDS ORDERED: NON-FORMULARY MEDICATION (Coq10 (Ubiquinol) 200 MG) PO SCH (09:00)
--- NOTE | 2019-04-29 10:27 | Anesthesiology Progress Note ---
Date of Service April 29, 2019 Anesthesia Post Procedure Vital Signs Vital Signs: Temp Pulse Pulse Resp BP Pulse Ox 04/29/19 07:00 36.6 C 67 20 118/78 92 04/29/19 03:06 36.4 C L 70 14 135/76 98 04/28/19 23:12 36.6 C 76 14 95/40 L 96 04/28/19 22:00 36.7 C 04/28/19 19:40 36.3 C L 74 20 164/82 H 97 04/28/19 17:26 36.2 C L 69 18 140/64 100 04/28/19 16:48 36.3 C L 60 16 121/74 98 04/28/19 16:20 36.3 C L 68 18 129/79 98 04/28/19 15:55 36.3 C L 62 17 129/60 96 04/28/19 15:45 36.3 C L 67 18 132/68 95 04/28/19 15:35 36.3 C L 68 18 135/65 96 04/28/19 15:25 80 21 137/74 95 04/28/19 15:15 74 21 139/83 98 04/28/19 15:06 36.3 C L 76 16 136/74 96 Notes Mental Status: alert / awake / arousable and participated in evaluation Nausea / Vomiting: adequately controlled Pain: adequately controlled Airway Patency, RR, SpO2: stable & adequate BP & HR: stable & adequate Hydration State: stable & adequate Neuraxial Anesthesia: sensory block resolved
[2019-04-29] MEDS: ONDANSETRON INJ 2 MG/ML 2 ML VIAL IV PRN (12:15)
[2019-04-29] MEDS: CALCIUM 600MG + VIT D 400 IU TAB PO SCH ×2 (13:00→13:13)
--- NOTE | 2019-04-29 17:50 | Progress Note ---
DATE: 04/29/2019 She has had nausea today as well as pain. The pain medicine does help, but not completely. She denies any tingling or numbness. Surgical findings are discussed with she and her family and the plan moving forward along with expectations is also laid out. We talked about the pros and cons of indomethacin versus radiation treatment to prevent heterotopic ossification. I have spoken with Dr. Ortega and a short course of indomethacin should be okay. We will monitor her kidney function. Her vital signs are stable. No fevers. Drain output was approximately 80 mL and 10. Wound VACs are functioning. The Hemovacs are pulled. White count 8, hemoglobin 12, hematocrit 37, platelet count 248. PRP is within normal limits except for low calcium, slightly high glucose. BUN and creatinine are within normal limits. Median, radial and ulnar motor and sensory functions are intact. There is mild swelling of the fingers. Capillary refill less than 2 seconds. IMPRESSION: Unstable simple valgus posterolateral elbow instability. PLAN: Continue admission to manage nausea and pain. Continue to ice, elevate. Continue wound VACs as well as heterotopic ossification prophylaxis with indomethacin. Monitor kidney function. Moving forward, we will leave wound VACs on for a week. She will be seen in the office next week for a wound check and wound VAC removal. We will then either go with a removable posterior splint or a hinged brace and start physical therapy shortly thereafter.
[2019-04-29] MEDS: GABAPENTIN 100 MG CAP PO SCH (21:50)
[2019-04-29] MEDS: SENNA 8.6 MG TAB PO SCH (21:50)
[2019-04-29] MEDS: ASPIRIN 81 MG ECTAB PO SCH (21:51)
[2019-04-30] MEDS: OXYCODONE HCL IR 5 MG TAB (IMMEDIATE RELEASE) PO PRN ×3 (00:03→09:32)
[2019-04-30] MEDS: HYDROmorphone INJ 1 MG/ML SYRINGE IV PRN (02:45)
[2019-04-30] MEDS: ACETAMINOPHEN 500 MG TAB PO SCH ×2 (05:22→13:42)
[2019-04-30] MEDS: FUROSEMIDE 20 MG TAB PO SCH ×2 (07:09→13:41)
[2019-04-30 07:23] LABS: BUN Creatinine Ratio 14.5 (10-20); Calcium 7.6 mg/dl (8.5-10.1); Creatinine Clr Calc Pharmacy 49.8 ml/min; Est GFR (African American) 52.1
[2019-04-30] MEDS: METOPROLOL SUCC 50MG EXT REL TAB PO SCH (09:09)
[2019-04-30] MEDS: DOCUSATE SODIUM 100 MG CAP PO SCH (09:10)
[2019-04-30] MEDS: LOSARTAN POTASSIUM 50 MG TAB PO SCH (09:10)
[2019-04-30] MEDS: POTASSIUM CHLORIDE 20 MEQ TABCR PO SCH (09:11)
[2019-04-30] MEDS: cloNIDine HCl 0.1 MG TAB PO SCH (09:11)
[2019-04-30] MEDS: INDOMETHACIN 25 MG CAP PO SCH ×2 (09:12→13:41)
--- NOTE | 2019-04-30 12:01 | Orthopedic Progress Note ---
Date of Service April 30, 2019 Assessment & Plan (1) Dislocation, elbow closed: Postop day 2-status post ligamentous repair right elbow for closed dislocation Indocin 25 mg 3 times daily started to prevent heterotopic ossification, will follow daily BUN and creatinine Pain control with oral meds Ice with EZ wrap Nonweightbearing right upper extremity. She does have a sling and recommended she wear this. Out of bed as tolerated with assistance. Teds and foot pumps for DVT prophylaxis. Encourage range of motion of her fingers. PT/OT to start today. Will be followed by Gerardo at home after discharge. Planned discharge later today Will discuss findings with Dr. Whipple Subjective Patient is sitting up in chair with arm in sling and icing with EZ wrap. She states that her nausea has resolved and that her pain is much more manageable today. She denies any numbness or tingling in her right hand. She denies feeling like the splint or dressings discomfort. Denies Chest pain, shortness of breath, fever, chills, sweats, vomiting or fatigue. She has been up to the bathroom. She would like to be discharged home later today. Review of Systems Review of Systems: All systems reviewed & are unremarkable except as noted in HPI & below Physical Exam Physical Exam: Right arm: dressing was not removed. ROM at elbow not tested. Good ROM of digits and able to depict light sensation touch over pads. Periph pulses easily palpable. Cap Refill < 2 seconds. NV intact. Results & Data Vital Signs (Past 12 Hours) Vital Signs Temp Pulse Resp BP Pulse Ox 04/30/19 06:54 36.5 C 65 20 127/78 94 04/30/19 00:11 36.5 C Laboratory Results 04/30/19 Range/Units 06:13 Sodium 139 (136-145) mmol/L Potassium 4.0 (3.5-5.1) mmol/L Chloride 106 (98-107) mmol/L Carbon Dioxide 28 (21-32) mmol/L Anion Gap 5.0 (3-11) BUN 18 (7-18) mg/dl Creatinine 1.21 H (0.6-1.2) mg/dl Est Cr Clr Drug Dosing 49.8 ml/min Est GFR ( Amer) 52.1 Est GFR (Non-Af Amer) 45.0 BUN/Creatinine Ratio 14.5 (10-20) Glucose 96 (70-99) mg/dl Calcium 7.6 L (8.5-10.1) mg/dl
[2019-04-30] MEDS: ONDANSETRON INJ 2 MG/ML 2 ML VIAL IV PRN ×2 (12:47→15:46)
[2019-04-30] MEDS: CALCIUM 600MG + VIT D 400 IU TAB PO SCH (13:40)
--- NOTE | 2019-05-01 00:40 | Discharge Summary ---
DATE OF ADMISSION: 04/28/2019 DATE OF DISCHARGE: 04/30/2019 ADMISSION DIAGNOSIS: Unstable right elbow dislocation. DISCHARGE DIAGNOSIS: Unstable right elbow dislocation. PROCEDURE: Repair of lateral ulnar collateral ligament and common extensor tendon and repair of medial, ulnar, collateral ligament with repair of flexor pronator tendon avulsion. ATTENDING PHYSICIAN: Charanjit Whipple MD BRIEF HISTORY: The patient is 69 years old. She sustained a simple elbow dislocation with minor coronoid fractures. There was no significant bony fracture; however, her elbow was unstable and could not be held reduced by closed means. CT scan and MRI were done. The patient was admitted to the hospital after an uneventful surgical procedure repairing the medial and lateral sides of her elbow. Drains were inserted and these were pulled on postop day #1. She received a routine course of postop IV antibiotics. She did have some issues with pain which was managed with increasing her medications. Wound VACs were applied at the time of surgery and were functional on discharge. Her neurovascular function was intact. Median, radial and ulnar motor and sensory functions with good capillary refill. She was placed on indomethacin for heterotopic ossification prophylaxis. We spoke informally with Dr. Ortega regarding this given her history of kidney disease which will be closely monitored. At discharge, her creatinine was 1.21. This will be rechecked on Friday by home health. She is advised to have adequate fluid intake. She was afebrile and her vital signs were stable. She is discharged home in good condition. She is to follow up with me next week for wound check and wound VAC removal and beginning of the physical therapy. Home nursing will draw her blood on Friday. She is to stay in the sling as is with her wound VACs on. Use sling, elevate, ice. MEDICATIONS: She can resume her home meds taking indomethacin, stool softener and/or bowel stimulant. Oxycodone and Ultram for pain. If there are any problems with pain, swelling, fevers, tingling, numbness or any other problems, call the office or go to the Emergency Room. She did have some issues with nausea during her hospital stay and will be prescribed Zofran for home. Keep clean and dry.
== END 2019-04-30 16:49 | disposition home health service (06) | DRG 507 ==
LOC: ASU 07:48 → 3N 15:08

== ENCOUNTER 2020-04-17 16:58 | Inpatient (IN) ==
[2020-04-17] MEDS ORDERED: ONDANSETRON INJ 2 MG/ML 2 ML VIAL IV STA ×3 (17:32→23:05)
--- NOTE | 2020-04-17 17:32 | Emergency Department Note ---
Impression & Plan Generalized abdominal pain ED Provider Note NAME: RIMMA BAKER AGE: 70 SEX: F ARRIVES VIA: Walk-In INFORMANT: [Patient] ED PROVIDER(S): Angus Moore MD CHIEF COMPLAINT: Abdominal pain PLAN: Disposition: Admitted Condition: [Good] MEDICAL DECISION MAKING: Patient presented with abdominal pain and noted that her discomfort from the diverticulitis episode on March 25 never really resolved. She was previously treated with oral antibiotics. She does note having a hospitalization in the past due to diverticulitis requiring IV antibiotics. Patient was quite uncomfortable. She was treated with IV Dilaudid and Zofran. She was hydrated. CT imaging was performed. Patient has microperforation to her diverticulitis. Diverticulitis has increased. She was treated with IV Zosyn. Consultation was made with Dr. Cabrales of general surgery who recommended conservative management and will consult on the patient. [facility]. Patient did ask for her nephrology labs to be added on so that she could avoid coming back to the hospital for her routine lab draws prior to her next nephrology appointment coming up. Under the circumstances, given the lockdown, her labs were ordered. They were unremarkable. Triage Nursing notes reviewed and agree them. [Prior medical records reviewed] the patient had diverticulitis of the sigmoid colon without abscess or perforation on her March [address] CT. Vital Signs: reviewed and remarkable for [no significant abnormalities] Differential diagnosis: Diverticulitis, appendicitis, ovarian cyst, ovarian torsion, ectopic , TOA, PID, infections, UTI, obstruction, mesenteric ischemia, aortic pathology, inflammatory bowel disease, renal colic, PUD, pancreatitis, biliary pathology, hernia, volvulus, constipation, as well as other pathologies. ER treatment provided: IV Dilaudid IV Zofran IV normal saline IV Zosyn Diagnostics interpreted by me: Cardiac Monitoring: Cardiac monitoring ordered by me: The patient was placed on continuous cardiac monitoring and observed. It revealed a normal sinus rhythm at 81 beats per minute without ectopy or evidence of dysrhythmia. Laboratory studies: [See below] mild leukocytosis on CBC. Chemistry panel unremarkable. Imaging studies: CT imaging of the abdomen pelvis reveals diverticulitis with microperforation. Consultation(s): General surgery, Dr. Cabrales Internal medicine, Dr. Mathew Rosario HPI: The patient is a 70 year old female who presents to the Emergency Room with complaints of abdominal pain. This started several weeks ago, was diagnosed with Diverticulitis 5/ and is now getting much worse. No longer just LLQ, now mid and the whole left side. The patient also notes the following associated symptoms, poor appetite and diarrhea. The patient has found no relieving factors. Current pain is rated as 8-10/10. She was on Augmentin and then called the on-call PCP today who prescribed the antibiotic again. Unfortunately, the pain got significantly worse and she heeded the advice of the lawn care professional and came to the ED. Pt denies LOC, headache, fevers, chills, diaphoresis, visual changes, neck pain, chest pain, breathing difficulties, nausea, vomiting, back pain, melena, hematochezia, urinary symptoms, numbness, weakness, lymphadenopathy, rash, or other complaints. ROS: See above HPI for pertinent positives & negatives. A total of [10] systems reviewed and were otherwise negative. PAST MEDICAL HISTORY:[See Below] Diverticulitis PAST SURGICAL HISTORY:[See Below] FAMILY HISTORY:[See Below] SOCIAL HISTORY:[See Below]NO tobacco HOME MEDICATIONS:[See Below] ALLERGIES:[See Below] VITALS:[See Below] PHYSICAL EXAMINATION: GENERAL: Awake, alert, uncomfortable-appearing, in no distress HENT: Normocephalic, atraumatic. Oropharynx unremarkable. EYES: Normal conjunctiva. Sclera non-icteric. NECK: Inspection normal. Non-tender. Supple. No nuchal rigidity. FROM. No masses. RESPIRATORY: Clear to auscultation. No wheezes. No rales. Normal respiratory effort. CARDIAC: Normal rate. Normal rhythm. No murmurs. No rubs. Extremities warm and well perfused. Pulses equal. No JVD. GI: Soft, non-distended. mid and significant LUQ, LLQ tenderness to palpation. No rebound but mild guarding. No masses. RECTAL: Deferred. MUSCULOSKELETAL: Atraumatic. Chest examination reveals no tenderness. The back is symmetrical on inspection without obvious abnormality. There is no CVA tenderness to palpation. No joint edema. LOWER EXTREMITIES: Calves are equal size bilaterally and non-tender. No edema. No discoloration. NEURO: Normal sensorium. No sensory or motor deficits noted. SKIN: No rash or jaundice noted. ED COURSE: [Critical Care:] [None] Angus Moore MD Past Med/Surg History Medical History Chronic back pain Chronic kidney disease, stage II (mild) (Chronic) Diastolic dysfunction follows w/ Dr. Valenzuela Dislocation, elbow closed Fibromyalgia HTN (hypertension) (Chronic) Hyperlipidemia Morbid obesity No pertinent family history Sensorineural hearing loss (SNHL) of both ears (Inactive) Sleep apnea CPAP SOBOE (shortness of breath on exertion) (Chronic) Spinal stenosis Vitamin D deficiency (Chronic) Surgical History H/O colonoscopy H/O shoulder surgery Rotator cuff repair, [facility] [place] 2010. [place] without complications. H/O: hysterectomy History of bilateral salpingo-oophorectomy (BSO) History of dilation and curettage History of esophagogastroduodenoscopy (EGD) History of tubal ligation Social History Preferred Language: Scottish Communication Ability: Effective Visual Impairment: No Limitations Hearing Ability: Normal Billing Department Supervisor Required: No Beliefs That Will Affect Care: None marital status: Current Living Situation: Spouse current occupational status: retired Other Information That Helps Us Care for You: No Feels Safe at Home: Yes Safety Concerns: Feels Safe At This Time Smoking Status: Never smoker Second Hand Exposure: No ; Hx Alcohol Use: No Hx Substance Use: No Seatbelt Use: always Allergies Allergies Allergy/AdvReac Type Severity Reaction Status Date / Time ibuprofen Allergy Intermediate KIDNEY Verified 04/17/20 17:45 RELATED NSAIDS (Non-Steroidal Allergy Intermediate RASH Verified 04/17/20 17:45 Anti-Inflamma duloxetine [From Cymbalta] Allergy Unknown Headache Verified 04/17/20 17:45 Sulfa (Sulfonamide Allergy Unknown hives/rash Verified 04/17/20 17:45 Antibiotics) telmisartan Allergy Unknown MUSCLE Verified 04/17/20 17:45 WEAKNESS SONI Inhibitors AdvReac Mild Cough Verified 04/17/20 17:45 levofloxacin [From Levaquin] AdvReac Mild muscle Verified 04/17/20 17:45 aches ketorolac AdvReac Unknown PCP Verified 04/17/20 17:45 ADVISED TO AVOID DUE TO RENAL FXN Home Meds Home Medications Medication Instructions Recorded Confirmed PreserVision AREDS-2 1 tab PO BID 11/21/18 04/17/20 albuterol sulfate [Proventil HFA] 2 puff INHALATION Q6H PRN 11/21/18 04/17/20 aspirin [Aspir-81] 81 mg PO HS 11/21/18 04/17/20 calcium citrate-vitamin D3 2 tab PO DAILY@1200 11/21/18 04/17/20 [Citracal + D Maximum] coQ10 (ubiquinol) 200 mg PO DAILY 11/21/18 04/17/20 omega 1-per-xbu-fish oil [Fish Oil] 1 cap PO TID 11/21/18 04/17/20 ergocalciferol (vitamin D2) 1,250 50,000 units PO MONTHLY #21 cap 06/24/19 04/17/20 mcg (50,000 unit) capsule docusate sodium 100 mg capsule 100 mg PO BID PRN cap 01/04/20 04/17/20 clonidine HCl 0.1 mg PO QPM 04/17/20 04/17/20 clonidine HCl 0.2 mg PO QAM 04/17/20 04/17/20 furosemide 20 mg PO BID 04/17/20 04/17/20 Previous Rx's Medication Instructions Recorded potassium chloride 20 mEq 20 meq PO QAM #90 tab 06/08/19 tablet,extended release(part/cryst) verapamil 80 mg tablet 80 mg PO DAILY #90 tab 06/29/19 losartan 100 mg tablet 100 mg PO QAM #90 tab 11/22/19 metoprolol succinate 100 mg 100 mg PO DAILY #90 tab 12/02/19 tablet,extended release 24 hr mometasone-formoterol HFA 100 2 puffs INH DAILY #13 gm 02/07/20 mcg-5 mcg/actuation aerosol inhaler gabapentin 100 mg capsule 100 mg PO QAM #90 cap 04/03/20 gabapentin 300 mg capsule 300 mg PO QPM #90 cap 04/03/20 amoxicillin 875 mg-potassium 1 tab PO BID #20 tab 04/17/20 clavulanate 125 mg tablet Results & Data (ED) Vital Signs Vital Signs - 24 hr 04/17/20 17:04 04/17/20 19:13 04/17/20 20:57 Temperature 37.5 C Temperature Source Oral Pulse Rate 79 Pulse Rate [Left] 88 63 Respiratory Rate 18 20 20 Respiratory Effort / Characteristics Non-Labored Respiratory Depth Normal Respiratory Pattern Regular Blood Pressure 195/72 H Blood Pressure [Left Arm] 149/100 H 116/61 Blood Pressure Mean 113 Blood Pressure Mean [Left Arm] 116 79 Blood Pressure Position Sitting Pulse Oximetry 95 94 98 Oxygen Delivery Method Room Air Room Air Room Air Sepsis Recent Fever Within 48 Hours No Sepsis Action Taken by Nursing No Action Required Laboratory Data Result diagrams: 04/17/20 18:01 04/17/20 18:01 Lab Results 04/17/20 04/17/20 04/17/20 Range/Units 17:15 17:15 18:01 WBC 12.84 H (4.8-10.8) K/uL RBC 4.29 (4.2-5.4) M/uL Hgb 13.9 (12.0-16.0) g/dL Hct 42.2 (37-47) % MCV 98.4 (80-100) fL MCH 32.4 (25-34) pg MCHC 32.9 (32-36) g/dL RDW Std Deviation 48.6 H (36.4-46.3) fL RDW Coeff of Jose J 13.7 (11.5-14.5) % Plt Count 261 (130-400) K/uL MPV 11.1 H (7.4-10.4) fL Immature Gran % (Auto) 0.2 % Neut % (Auto) 83.3 % Lymph % (Auto) 8.2 % [place] % (Auto) 7.6 % Eos % (Auto) 0.5 % Baso % (Auto) 0.2 % Immature Gran # (Auto) 0.03 H (0.00-0.02) K/uL Neut # (Auto) 10.69 H (1.4-6.5) K/uL Lymph # (Auto) 1.05 L (1.2-3.4) K/uL [place] # (Auto) 0.97 H (0.11-0.59) K/uL Eos # (Auto) 0.07 (0-0.5) K/uL Baso # (Auto) 0.03 (0-0.2) K/uL Sodium (136-145) mmol/L Potassium (3.5-5.1) mmol/L Chloride (98-107) mmol/L Carbon Dioxide (21-32) mmol/L Anion Gap (3-11) BUN (7-18) mg/dl Creatinine (0.6-1.2) mg/dl Est Cr Clr Drug Dosing Est GFR ( Amer) Est GFR (Non-Af Amer) BUN/Creatinine Ratio (10-20) Glucose (70-99) mg/dl Calcium (8.5-10.1) mg/dl Total Bilirubin (0.2-1) mg/dl AST (15-37) U/L ALT (12-78) U/L Alkaline Phosphatase (45-117) U/L Total Protein (6.4-8.2) gm/dl Albumin (3.4-5.0) gm/dl Globulin (2.5-4.0) gm/dl Albumin/Globulin Ratio (0.9-2) Lipase (73-393) U/L 25-OH Vitamin D Total (30-100) ng/ml PTH Intact (18.4-80.1) pg/ml Urine Color Yellow Urine Appearance Clear (Clear) Urine pH 6.0 (4.5-7.5) Ur Specific [place] 1.010 (1.000-1.030) Urine Protein Negative (Negative) Urine Glucose (UA) Negative (Negative) Urine Ketones Negative (Negative) Urine Blood Negative (Negative) Urine Nitrite Negative (Negative) Urine Bilirubin Negative (Negative) Urine Urobilinogen Negative (Negative) Ur Leukocyte Esterase Negative (Negative) Ur Random Creatinine 19.6 mg/dl U Random Total Protein < 5.0 (0-11.9) mg/dl Protein/Creatinin Ratio TNP 04/17/20 04/17/20 04/17/20 Range/Units 18:01 18:01 18:01 WBC (4.8-10.8) K/uL RBC (4.2-5.4) M/uL Hgb (12.0-16.0) g/dL Hct (37-47) % MCV (80-100) fL MCH (25-34) pg MCHC (32-36) g/dL RDW Std Deviation (36.4-46.3) fL RDW Coeff of Jose J (11.5-14.5) % Plt Count (130-400) K/uL MPV (7.4-10.4) fL Immature Gran % (Auto) % Neut % (Auto) % Lymph % (Auto) % [place] % (Auto) % Eos % (Auto) % Baso % (Auto) % Immature Gran # (Auto) (0.00-0.02) K/uL Neut # (Auto) (1.4-6.5) K/uL Lymph # (Auto) (1.2-3.4) K/uL [place] # (Auto) (0.11-0.59) K/uL Eos # (Auto) (0-0.5) K/uL Baso # (Auto) (0-0.2) K/uL Sodium 138 (136-145) mmol/L Potassium 3.9 (3.5-5.1) mmol/L Chloride 103 (98-107) mmol/L Carbon Dioxide 27 (21-32) mmol/L Anion Gap 8.0 (3-11) BUN 18 (7-18) mg/dl Creatinine 1.09 (0.6-1.2) mg/dl Est Cr Clr Drug Dosing Not Reportable Est GFR ( Amer) 58.7 Est GFR (Non-Af Amer) 50.7 BUN/Creatinine Ratio 16.7 (10-20) Glucose 117 H (70-99) mg/dl Calcium 8.8 (8.5-10.1) mg/dl Total Bilirubin 0.6 (0.2-1) mg/dl AST 13 L (15-37) U/L ALT 24 (12-78) U/L Alkaline Phosphatase 112 (45-117) U/L Total Protein 8.2 (6.4-8.2) gm/dl Albumin 3.6 (3.4-5.0) gm/dl Globulin 4.6 H (2.5-4.0) gm/dl Albumin/Globulin Ratio 0.8 L (0.9-2) Lipase 104 (73-393) U/L 25-OH Vitamin D Total 32.4 (30-100) ng/ml PTH Intact 50.8 (18.4-80.1) pg/ml Urine Color Urine Appearance (Clear) Urine pH (4.5-7.5) Ur Specific [place] (1.000-1.030) Urine Protein (Negative) Urine Glucose (UA) (Negative) Urine Ketones (Negative) Urine Blood (Negative) Urine Nitrite (Negative) Urine Bilirubin (Negative) Urine Urobilinogen (Negative) Ur Leukocyte Esterase (Negative) Ur Random Creatinine mg/dl U Random Total Protein (0-11.9) mg/dl Protein/Creatinin Ratio Administered Medications Piperacillin Sod/Tazobactam (Sod 4.5 gm/ Dextrose) 120 mls @ 28.75 mls/hr IV Q8H [facility]; Protocol Stop: 04/28/20 00:00 Last Admin: 04/17/20 23:49 Dose: 28.8 mls/hr Documented by: [id number] Lactated Ringer's (Lr) 1,000 mls @ 80 mls/hr IV .[id number] [facility] Stop: 04/18/20 23:37 Last Infusion: 04/18/20 00:41 Dose: 0 mls/hr Documented by: [id number] Admin: 04/17/20 22:58 Dose: 80 mls/hr Documented by: [id number] Metoprolol Tartrate (Lopressor) 5 mg IV Q4 [facility] Stop: 05/18/20 00:00 Last Admin: 04/17/20 23:41 Dose: 5 mg Documented by: [id number] Morphine Sulfate (Morphine Sulfate) 4 mg IV Q6H PRN PRN Reason: Pain Stop: 05/01/20 22:37 Last Admin: 04/17/20 23:39 Dose: 4 mg Documented by: [id number] Discontinued Medications Hydromorphone HCl (Dilaudid) 0.5 mg IV Q15M PRN PRN Reason: Pain Stop: 05/01/20 17:31 Last Admin: 04/17/20 19:34 Dose: 0.5 mg Documented by: [id number] Admin: 04/17/20 18:41 Dose: 0.5 mg Documented by: [id number] Sodium Chloride (Nss) 500 mls @ 999 mls/hr IV .Q31M [facility] Stop: 04/17/20 18:15 Last Infusion: 04/17/20 19:35 Dose: 0 mls/hr Documented by: [id number] Admin: 04/17/20 18:41 Dose: 999 mls/hr Documented by: [id number] Piperacillin Sod/Tazobactam Sod (Zosyn) 4.5 gm in 120 mls @ 240 mls/hr IV NOW ONE Stop: 04/17/20 19:55 Last Infusion: 04/17/20 20:20 Dose: 0 mls/hr Documented by: [id number] Admin: 04/17/20 19:30 Dose: 240 mls/hr Documented by: [id number] Miscellaneous (Patient's Height And/Or Weight Needed) 1 ea N/A Q2H [facility] Stop: 05/17/20 22:59 Last Admin: 04/18/20 00:42 Dose: 1 ea Documented by: [id number] Ondansetron HCl (Zofran) 4 mg IV NOW STA Stop: 04/17/20 17:33 Last Admin: 04/17/20 18:41 Dose: 4 mg Documented by: [id number] Ondansetron HCl (Zofran) 4 mg IV NOW STA Stop: 04/17/20 21:26 Last Admin: 04/17/20 21:46 Dose: Not Given Documented by: [id number] Ondansetron HCl (Zofran) Confirm Administered Dose 4 mg .ROUTE .STK-MED ONE Stop: 04/17/20 21:29 Last Admin: 04/17/20 21:32 Dose: 4 mg Documented by: [id number] Ondansetron HCl (Zofran) 4 mg IV NOW STA Stop: 04/17/20 23:06 Last Admin: 04/17/20 23:38 Dose: 4 mg Documented by: [id number] Discharge Plan Visit Data *Final* Discharge Date/Time: 04/17/20 22:00 Chief Complaint: Abdominal Pain Stated Complaint: STOMACH PAIN ED Provider: Angus Moore Discharge Problem: Generalized abdominal pain Patient Disposition: Admitted As Inpatient Discharge Instructions Interventions: ED Discharge Assessment Last Done: 04/17/20 22:00
[2020-04-17] MEDS ORDERED: SODIUM CHLORIDE 0.9% 500 ML IV SCH (17:45)
[2020-04-17 18:00] LABS: Appearance Urine Clear (Clear); Bilirubin Urine Negative (Negative); Blood Urine Negative (Negative); Color Urine Yellow; Glucose Urine UA Negative (Negative); Ketones Urine Negative (Negative); Leukocyte Esterase Urine Negative (Negative); Nitrite Urine Negative (Negative); Protein Urine Negative (Negative); Urobilinogen Urine Negative (Negative)
[2020-04-17 18:19] LABS: Creatinine Urine Random 19.6 mg/dl; Total Protein Urine Random < 5.0 mg/dl (0-11.9)
[2020-04-17 18:24] LABS: Basophils # (auto) 0.03 K/uL (0-0.2); Basophils % (auto) 0.2 %; Eosinophils # (auto) 0.07 K/uL (0-0.5); Eosinophils % (auto) 0.5 %; Hematocrit (blood only) 42.2 % (37-47); Hemoglobin 13.9 g/dL (12.0-16.0); Immature Granulocytes # (auto) 0.03 K/uL (0.00-0.02); Immature Granulocytes % (auto) 0.2 %; Lymphocytes # (auto) 1.05 K/uL (1.2-3.4); Lymphocytes % (auto) 8.2 %; Mean Corpuscular Hemoglobin 32.4 pg (25-34); Mean Corpuscular Hgb Conc 32.9 g/dL (32-36); Mean Corpuscular Volume 98.4 fL (80-100); Mean Platelet Volume 11.1 fL (7.4-10.4); Monocytes # (auto) 0.97 K/uL (0.11-0.59); Monocytes % (auto) 7.6 %; Neutrophils # (auto) 10.69 K/uL (1.4-6.5); Neutrophils % (auto) 83.3 %; Platelet Count 261 K/uL (130-400); RDW Coefficient of Variation 13.7 % (11.5-14.5); RDW Standard Deviation 48.6 fL (36.4-46.3); Red Blood Count 4.29 M/uL (4.2-5.4); White Blood Count 12.84 K/uL (4.8-10.8)
[2020-04-17 18:41] LABS: Alanine Aminotransferase 24 U/L (12-78); Albumin Level 3.6 gm/dl (3.4-5.0); Aspartate Aminotransferase 13 U/L (15-37); BUN Creatinine Ratio 16.7 (10-20); Blood Urea Nitrogen 18 mg/dl (7-18); Calcium 8.8 mg/dl (8.5-10.1); Carbon Dioxide 27 mmol/L (21-32); Chloride 103 mmol/L (98-107); Est GFR (African American) 58.7; Est GFR (Non-African American) 50.7; Glucose 117 mg/dl (70-99); Lipase 104 U/L (73-393); Potassium 3.9 mmol/L (3.5-5.1); Sodium 138 mmol/L (136-145)
[2020-04-17] MEDS: HYDROmorphone INJ 0.5 MG/0.5 ML SYR IV PRN ×2 (18:41→19:34)
[2020-04-17 18:44] LABS: Albumin Globulin Ratio 0.8 (0.9-2); Alkaline Phosphatase 112 U/L (45-117); Bilirubin,Total 0.6 mg/dl (0.2-1); Globulin 4.6 gm/dl (2.5-4.0); Total Protein 8.2 gm/dl (6.4-8.2)
--- NOTE | 2020-04-17 19:14 | CT Scan Report ---
CT abd pelvis wo con CLINICAL HISTORY: 70 years-old Female presenting with Left abdominal pain, mid to upper abdominal manjit n, diverticulitis hx. TECHNIQUE: Multidetector CT of the abdomen and pelvis was performed without the use of intravenous co ntrast. IV contrast: None. One or more dose lowering techniques were used consistent with the princip les of ALA (as low as reasonably achievable), including automatic exposure control, mA or kV adjust ment to individual patient size, and/or use of iterative reconstruction. COMPARISON: 03/25/2020. CT DOSE (mGy.cm): The estimated cumulative dose is 1787.28 mGy.cm. FINDINGS: Solar Resource Assessor topogram: Unremarkable. Lung bases: Normal heart size. Coronary artery and aortic valve calcification. No pericardial or pleu ral effusion. Minimal dependent changes likely atelectasis. Liver: Normal morphology. Density consistent with hepatic steatosis. Biliary: No gross biliary ductal dilatation allowing for noncontrast technique. Normal gallbladder. Pancreas: Mild parenchymal atrophy. Spleen: Normal noncontrast appearance. Adrenal glands: Normal noncontrast appearance. Kidneys and ureters: Prominent lobulations of the renal parenchyma, which is otherwise normal a llowing for noncontrast technique. No nephrolithiasis. No hydronephrosis. Normal ureters. Bladder: Normal noncontrast appearance. Pelvic organs: Uterus surgically absent. Bowel: Diverticulosis of the sigmoid and descending colon. Interval increase in now moderate to sever e pericolonic fat stranding at the level of the junction of the descending and sigmoid colon. Increas ed adjacent peritoneal thickening. Several foci of gas are suspected to be extraluminal in the region of inflammation. Limited foci of mesenteric gas. Ill-defined surrounding fluid without a focal fluid collection to suggest abscess. No bowel obstruction. Peritoneal cavity: No free fluid. No focal fluid collection to suggest abscess as mentioned. Few foci of extraluminal gas as mentioned. No free intraperitoneal gas. Lymph nodes: No gross lymphadenopathy allowing for noncontrast technique. Vasculature: Atherosclerosis of the normal caliber abdominal aorta. Abdominal wall: Small fat-containing umbilical hernia. Musculoskeletal: Degenerative changes of the spine. Degenerative changes of the hips. IMPRESSION: 1. Interval worsening of the now moderate to severe diverticulitis at the junction of the descending and sigmoid colon. Several foci of extraluminal gas and mesenteric gas in the left lower quadrant. N o discrete abscess at this time though ill-defined surrounding fluid suggests phlegmonous change. 2. Hepatic steatosis. ACT 112: Negative or not required by law. Electronically signed by: Charanjit Vieira M.D. 04/17/2020 7:12 PM
[2020-04-17] MEDS ORDERED: PIPERACILL/TAZOBAC CONSULT ACTIVE PRN ×2 (19:26→22:38)
[2020-04-17] MEDS ORDERED: PIPERACILLIN/TAZOBACTAM 4.5 GM/120 ML BAG IV ONE (19:26)
--- NOTE | 2020-04-17 21:24 | History & Physical Report ---
Date of Service April 17, 2020 Assessment & Plan (1) Diverticulitis large intestine: Patient is a 70 year old female with PMHx Diverticulitis, CKD Stage II, Hyperlipidemia, Hypertension, Fibromyalgia who presents with chief complaint of left sided abdominal pain found to have moderate to severe diverticulitis of the descending and sigmoid colon with several foci of extraluminal gas and mesenteric gas in the left lower quadrant. ED Course: NSS 1L bolus, Zofran IV 4mg, Zosyn 4.5mg, Hydromorphone 0.5mg Diverticulitis -CT Abdomen noted mod-severe diverticulitis of descending and sigmoid colon with extraluminal gas and mesenteric gas. -Consult General Surgery -Zosyn 3.375mg IV q6h -Protonix 40mg IV -Morphine 4mg q6h PRN pain -Zofran 4mg IV q6h PRN nausea -NPO -LR 80ml/hr Hypertension -Holding home PO BP medications at this time while NPO -Will monitor for rebound hypertension as patient takes Clonidine 0.2mg QAM and 0.1mg QHS -Lopressor 5mg IV q4h -Hydralazine 10mg q6h PRN SBP >180, DBP >110 Hyperlipidemia -Holding home ASA 81mg Fibromyalgia -Holding home gabapentin while NPO Sleep Apnea -Allow for use of patients CPAP QHS Dispo: Med/Tele FEN: NPO, LR 80ml/hr DVT: SCD Code: Conditional - No Invasive Airway (2) Generalized abdominal pain: (3) Hyperlipidemia: (4) HTN (hypertension): (5) Fibromyalgia: (6) Chronic kidney disease, stage II (mild): (7) Sleep apnea: History of Present Illness Chief Complaint: Abdominal Pain Primary Care Provider: Pedro Wheeler MD Patient is a 70 year old female with PMHx Diverticulitis, CKD Stage II, Hyperlipidemia, Hypertension, Fibromyalgia who presents today with chief complaint of left sided abdominal pain. Patient notes that she had a similar type of pain at the beginning of the month on 03/25/20 and was treated for diverticulitis with Augmentin. She notes that her current pain feels similar, but it has progressed to the entire left side of her abdomen instead of just the lower portion. She notes that her pain was noticeable the past week, but took a turn for the worst starting last night. She states that it was close to a 8/10 w hich would progress to sharp 10/10 pains in her L abdominal wall. She notes that movement and deep breathing would worsen the pain. She called her PCP office and was prescribed another course of Augmentin, however, due to the worsening pain she decided to go the the ED for evaluation. She notes that she has had nausea, decreased appetite, and diarrhea. Denies any vomiting, hematochezia, melena, fe vers, chills. Currently patient states that her pain has improved to a 7/10 and that it feels more like a discomfort "deep" on the L side of her abdomen. Allergies Allergy/AdvReac Type Severity Reaction Status Date / Time ibuprofen Allergy Intermediate KIDNEY Verified 04/17/20 17:45 RELATED NSAIDS (Non-Steroidal Allergy Intermediate RASH Verified 04/17/20 17:45 Anti-Inflamma duloxetine [From Cymbalta] Allergy Unknown Headache Verified 04/17/20 17:45 Sulfa (Sulfonamide Allergy Unknown hives/rash Verified 04/17/20 17:45 Antibiotics) telmisartan Allergy Unknown MUSCLE Verified 04/17/20 17:45 WEAKNESS SONI Inhibitors AdvReac Mild Cough Verified 04/17/20 17:45 levofloxacin [From Levaquin] AdvReac Mild muscle Verified 04/17/20 17:45 aches ketorolac AdvReac Unknown PCP Verified 04/17/20 17:45 ADVISED TO AVOID DUE TO RENAL FXN Home Medications Home Medications Medication Instructions Recorded Confirmed Type PreserVision AREDS-2 1 tab PO BID 11/21/18 04/17/20 History albuterol sulfate [Proventil HFA] 2 puff INHALATION Q6H PRN 11/21/18 04/17/20 History aspirin [Aspir-81] 81 mg PO HS 11/21/18 04/17/20 History calcium citrate-vitamin D3 2 tab PO DAILY@1200 11/21/18 04/17/20 History [Citracal + D Maximum] coQ10 (ubiquinol) 200 mg PO DAILY 11/21/18 04/17/20 History omega 3-umi-xbz-fish oil [Fish Oil] 1 cap PO TID 11/21/18 04/17/20 History potassium chloride 20 mEq 20 meq PO QAM #90 tab 06/08/19 04/17/20 Rx tablet,extended release(part/cryst) ergocalciferol (vitamin D2) 1,250 50,000 units PO MONTHLY #21 cap 06/24/19 04/17/20 History mcg (50,000 unit) capsule verapamil 80 mg tablet 80 mg PO DAILY #90 tab 06/29/19 04/17/20 Rx losartan 100 mg tablet 100 mg PO QAM #90 tab 11/22/19 04/17/20 Rx metoprolol succinate 100 mg 100 mg PO DAILY #90 tab 12/02/19 04/17/20 Rx tablet,extended release 24 hr docusate sodium 100 mg capsule 100 mg PO BID PRN cap 01/04/20 04/17/20 History mometasone-formoterol HFA 100 2 puffs INH DAILY #13 gm 02/07/20 04/17/20 Rx mcg-5 mcg/actuation aerosol inhaler gabapentin 100 mg capsule 100 mg PO QAM #90 cap 04/03/20 04/17/20 Rx gabapentin 300 mg capsule 300 mg PO QPM #90 cap 04/03/20 04/17/20 Rx amoxicillin 875 mg-potassium 1 tab PO BID #20 tab 04/17/20 04/17/20 Rx clavulanate 125 mg tablet clonidine HCl 0.1 mg PO QPM 04/17/20 04/17/20 History clonidine HCl 0.2 mg PO QAM 04/17/20 04/17/20 History furosemide 20 mg PO BID 04/17/20 04/17/20 History Past Med/Surg History Medical History Chronic back pain Chronic kidney disease, stage II (mild) (Chronic) Diastolic dysfunction follows w/ Dr. Valenzuela Dislocation, elbow closed Fibromyalgia HTN (hypertension) (Chronic) Hyperlipidemia Morbid obesity No pertinent family history Sensorineural hearing loss (SNHL) of both ears (Inactive) Sleep apnea CPAP SOBOE (shortness of breath on exertion) (Chronic) Spinal stenosis Vitamin D deficiency (Chronic) Surgical History H/O colonoscopy H/O shoulder surgery Rotator cuff [place], [facility] [place] without complications. H/O: hysterectomy History of bilateral salpingo-oophorectomy (BSO) History of dilation and curettage History of esophagogastroduodenoscopy (EGD) History of tubal ligation Social History Preferred Language: Latvian Communication Ability: Effective Visual Impairment: No Limitations Hearing Ability: Normal Truant Officer Required: No Beliefs That Will Affect Care: None marital status: Current Living Situation: Spouse current occupational status: retired Other Information That Helps Us Care for You: No Feels Safe at Home: Yes Safety Concerns: Feels Safe At This Time Smoking Status: Never smoker Second Hand Exposure: No ; Hx Alcohol Use: No Hx Substance Use: No Seatbelt Use: always Review of Systems Constitutional: + anorexia; no fever, no chills, no body aches and no fatigue Eyes: no worsening vision Ear, Nose, Mouth, Throat: no dizziness Respiratory: + snoring (uses cpap at night); no cough, no dyspnea and no pain on inspiration Cardiovascular: no chest pain, no chest pain at rest, no radiating jaw, neck or arm pain, no palpitations and no calf pain Gastrointestinal: + abdominal pain, + bloating, + nausea and + diarrhea/loose stools; no vomiting, no hematemesis, no constipation and no melena Genitourinary: no dysuria Musculoskeletal: + back pain Physical Exam Constitutional: well developed, well nourished, + morbidly obese and cooperative; not combative Eyes: PERRL, conjunctivae normal, anicteric sclerae ENMT: external ear and nose normal, oropharynx normal Neck: trachea midline, no thyromegaly Respiratory: normal respiratory effort, lungs clear to auscultation Cardiovascular: RRR, no murmur, no edema Gastrointestinal (Abdomen): Inspection/Auscultation: + abdomen distended and normal bowel sounds; no high-pitched sounds Percussion/Palpation: + abdomen tender (L upper and lower quadrants) and abdomen soft; no guarding and abdomen not firm Musculoskeletal: no cyanosis or clubbing, extremities motor strength 5/5 Skin: no rashes, warm and dry Psychiatric: A+Ox3, euthymic affect Results & Data Results & [facility] ([facility]) Vital Signs (Past 12 Hours) Vital Signs Temp Pulse Pulse Resp BP BP Pulse Ox 04/17/20 20:57 63 20 116/61 98 04/17/20 19:13 88 20 149/100 H 94 04/17/20 17:04 37.5 C 79 18 195/72 H 95 Supervising Physician Co-Signing Physician Notes Attending addendum: I have physically seen this patient, have supervised the medical residents activities, and agree with the H&P unless as otherwise noted. Assessment and Plan: Severe diverticulitis involving descending and sigmoid colon/phlegmon/extraluminal and mesenteric gas- NPO Zosyn 3.375 mg IV every 8 hours. Pantoprazole 40 mg IV daily Morphine sulfate 4 mg IV every 6 hours PRN severe pain. Zofran 4 mg IV every 6 hours PRN LR at 80 mils per hour Consult general surgery, Dr. Cabrales aware. Hypertension- Hold p.o. medications. Lopressor 5 mg IV every 4 hours hold for heart rate less than 60 or systolic blood pressure less than 110 Hold aspirin. Remainder of orders and notations as noted PG Care Time/CCT Total # of Minutes Spent Total Time Spent with Patient: Total time spent is greater than 50% in coordination of care (as documented) at patient's floor/unit and/or counseling patient: Coding Level of Care Code 95784 Initial Inpt Care Lvl 3 Diagnoses Diverticulitis large intestine K57.32 Generalized abdominal pain R10.84 Hyperlipidemia E78.5 HTN (hypertension) I10 Fibromyalgia M79.7 Chronic kidney disease, stage II (mild) N18.2 Sleep apnea G47.30 Resident Activity Tracking Resident Involvement: Resident Care Provided Care Provided: Adult Hospital Medicine
[2020-04-17] MEDS ORDERED: ONDANSETRON INJ 2 MG/ML 2 ML VIAL ONE (21:28)
[2020-04-17] MEDS ORDERED: ALBUTEROL HFA 8 GM INHALER INH PRN (22:38)
[2020-04-17] MEDS ORDERED: HydrALAZINE HCL 20 MG/ML VIAL IV PRN (22:38)
[2020-04-17] MEDS: LACTATED RINGER'S 1,000 ML IV SCH (22:58)
[2020-04-17] MEDS ORDERED: PATIENT'S HEIGHT AND/OR WEIGHT NEEDED SCH (23:00)
[2020-04-17] MEDS: MoRPHine SULFATE 4 MG/ML 1 ML CARP\\VIAL IV PRN (23:39)
[2020-04-17] MEDS: METOPROLOL TARTRATE 1 MG/ML VIAL IV SCH (23:41)
[2020-04-17] MEDS: PIPERACILLIN/TAZOBACTAM 4.5 GM in DEXTROSE 5% 100 ML IV SCH (23:49)
[2020-04-18] MEDS ORDERED: MoRPHine SULFATE 2 MG/ML CARP IV STA (03:18)
[2020-04-18] MEDS: METOPROLOL TARTRATE 1 MG/ML VIAL IV SCH ×5 (04:23→20:34)
[2020-04-18] MEDS: MoRPHine SULFATE 4 MG/ML 1 ML CARP\\VIAL IV PRN ×3 (07:02→20:34)
[2020-04-18 07:30] LABS: Basophils # (auto) 0.02 K/uL (0-0.2); Basophils % (auto) 0.2 %; Eosinophils # (auto) 0.03 K/uL (0-0.5); Eosinophils % (auto) 0.2 %; Hematocrit (blood only) 40.9 % (37-47); Hemoglobin 13.2 g/dL (12.0-16.0); Immature Granulocytes # (auto) 0.02 K/uL (0.00-0.02); Immature Granulocytes % (auto) 0.2 %; Lymphocytes # (auto) 1.55 K/uL (1.2-3.4); Lymphocytes % (auto) 11.7 %; Mean Corpuscular Hemoglobin 32.1 pg (25-34); Mean Corpuscular Hgb Conc 32.3 g/dL (32-36); Mean Corpuscular Volume 99.5 fL (80-100); Mean Platelet Volume 11.7 fL (7.4-10.4); Monocytes # (auto) 1.34 K/uL (0.11-0.59); Monocytes % (auto) 10.1 %; Neutrophils # (auto) 10.31 K/uL (1.4-6.5); Neutrophils % (auto) 77.6 %; Platelet Count 261 K/uL (130-400); RDW Coefficient of Variation 13.7 % (11.5-14.5); RDW Standard Deviation 49.9 fL (36.4-46.3); Red Blood Count 4.11 M/uL (4.2-5.4); White Blood Count 13.27 K/uL (4.8-10.8)
[2020-04-18 07:57] LABS: BUN Creatinine Ratio 15.9 (10-20); Calcium 8.3 mg/dl (8.5-10.1); Creatinine Clr Calc Pharmacy 53.5 ml/min; Est GFR (African American) 57.5; Est GFR (Non-African American) 49.6; Potassium 3.5 mmol/L (3.5-5.1)
[2020-04-18] MEDS: PIPERACILLIN/TAZOBACTAM 4.5 GM in DEXTROSE 5% 100 ML IV SCH ×2 (08:08→16:09)
[2020-04-18] MEDS: ONDANSETRON INJ 2 MG/ML 2 ML VIAL IV PRN ×3 (08:12→20:33)
[2020-04-18] MEDS: FLUTICASONE/VILANTEROL 100/25MCG 14 PUFFS/INHALER INH SCH (08:57)
[2020-04-18] MEDS: PANTOprazole 40 MG in SYRINGE 0 ML IV SCH (10:30)
[2020-04-18] MEDS: LACTATED RINGER'S 1,000 ML IV SCH (13:08)
--- NOTE | 2020-04-18 13:10 | Hospitalist Progress Note ---
Date of Service April 18, 2020 Assessment & Plan (1) Diverticulitis large intestine: Patient is a 70yoF with PMHx Diverticulitis, CKD Stage II, Hyperlipidemia, Hypertension, Fibromyalgia with perforated diverticulitis. Diverticulitis -CT Abdomen noted mod-severe diverticulitis of descending and sigmoid colon with extraluminal gas and mesenteric gas. -Appreciate General surgery recs -Continue NPO status for bowel rest -continue IVF -continue IV Zosyn -Continue Protonix 40mg IV -Continue Morphine 4mg q6h PRN for pain -Continue Zofran 4mg IV q6h PRN for nausea -will continue to monitor progress Hypertension -Continue Lopressor 5mg IV q4h -Continue Hydralazine 10mg q6h PRN SBP >180, DBP >110 -Hold home PO BP medications at this time while NPO -Will monitor for rebound hypertension as patient takes Clonidine 0.2mg QAM and 0.1mg QHS Hyperlipidemia -Holding home ASA 81mg Fibromyalgia -Holding home gabapentin while NPO Sleep Apnea -Allow for use of patients CPAP QHS Dispo: Moved to Med/Surg FEN: NPO, LR 80ml/hr DVT: SCD Code: Conditional - No Invasive Airway (2) Generalized abdominal pain: (3) Hyperlipidemia: (4) HTN (hypertension): (5) Fibromyalgia: (6) Chronic kidney disease, stage II (mild): (7) Sleep apnea: Admission and Anticipated Discharge Date Admission Date: April 17, 2020 Supervising Physician Co-Signing Physician Notes I personally examined the patient and verified all doty points of history and exam, discussed case, and agree with decision making with Dr Quiñones. feeling ok. no new complaints. appreciate surgical input. vitals noted nad heent nc at mmm breathing unlabored no accessory muscles good effort skin no rashes no pallor or icterus diverticulitis w perforation - fortunately stable - no surgical intervention at this time. ongoing IV abx, serial exams, supportive care, time. otherwise as above Subjective Pt seen this AM seated in a chair at the bedside. Very comfortable though she stated she was having abdominal pain in LLQ and around umbilicus. States she was still nauseous without episodes of emesis. Denied fevers, chills or night sweats. Review of Systems Review of Systems: All systems reviewed & are unremarkable except as noted in HPI & below Physical Exam Physical Exam: General: Alert, oriented. No acute distress Skin: No noted rashes or bruises Psych: Appropriate mood and affect Neuro: No gross deficits HEENT: NC/AT Chest: Nontender to palpation. CV: RRR, Normal s1, s2. No murmurs appreciated Resp: Breath sounds clear bilaterally, no increased effort of breathing. Abdomen: Soft, tender in LLQ and around umbilicus. No guarding. Extremities: Trace edema in lower extremities bilaterally. Results & Data Results & Data ([facility]) Vital Signs (Past 12 Hours) Vital Signs Temp Pulse Pulse Resp BP BP Pulse Ox 04/18/20 12:38 73 144/80 H 04/18/20 08:12 71 147/55 H 04/18/20 07:46 37 C 71 18 147/55 H 94 04/18/20 07:01 67 04/18/20 04:23 59 L 107/61 04/18/20 03:24 78 18 94 Resident Activity Tracking Resident Involvement: Resident Care Provided Care Provided: Adult Hospital Medicine
--- NOTE | 2020-04-18 14:00 | Surgery Consultation ---
Date of Consultation April 18, 2020 Assessment & Plan (1) Diverticulitis large intestine: This patient has acute diverticulitis at the junction of the descending and sigmoid colon. I would proceed with conservative measures. There is no evidence of diffuse peritonitis. There is no evidence of an abscess. Hopefully this will resolve with conservative measures. She will need a colonoscopy most likely after resolution. I do not feel there is any need for immediate surgical intervention. Present on Admission?: Yes History of Present Illness Reason for Consultation: Acute diverticulitis with microperforation Requesting Physician: Yrn Andrade DO Attending Physician: Yrn Andrade DO History of Present Illness I have been asked by Dr. Andrade to see this 70-year-old female who presented to the emergency room with a complaint of pain in the left iliac fossa area. She was diagnosed by CT scan on 25 March with acute diverticulitis at the junction of the descending and sigmoid colon's. She was placed on Augmentin. There was some decrease in her symptoms but they never completely resolved. She has been moving her bowels. There is occasional diarrhea. She has no melena or hematochezia. The symptoms over the weekend escalated in intensity and frequency. She was unable to walk due to the amount of discomfort and therefore presented to the emergency room. She had no fever or chills. She has no dysuria or hematuria. She underwent a repeat CAT scan that showed increase in the amount of inflammatory change. There were a few bubbles of extraluminal air consistent with microperforation. There was a small amount of fluid but no evidence of abscess. There was phlegmonous change. Allergies Allergy/AdvReac Type Severity Reaction Status Date / Time ibuprofen Allergy Intermediate KIDNEY Verified 04/17/20 17:45 RELATED NSAIDS (Non-Steroidal Allergy Intermediate RASH Verified 04/17/20 17:45 Anti-Inflamma duloxetine [From Cymbalta] Allergy Unknown Headache Verified 04/17/20 17:45 Sulfa (Sulfonamide Allergy Unknown hives/rash Verified 04/17/20 17:45 Antibiotics) telmisartan Allergy Unknown MUSCLE Verified 04/17/20 17:45 WEAKNESS SONI Inhibitors AdvReac Mild Cough Verified 04/17/20 17:45 levofloxacin [From Levaquin] AdvReac Mild muscle Verified 04/17/20 17:45 aches ketorolac AdvReac Unknown PCP Verified 04/17/20 17:45 ADVISED TO AVOID DUE TO RENAL FXN Home Medications Home Medications Medication Instructions Recorded Confirmed Type PreserVision AREDS-2 1 tab PO BID 11/21/18 04/17/20 History albuterol sulfate [Proventil HFA] 2 puff INHALATION Q6H PRN 11/21/18 04/17/20 History aspirin [Aspir-81] 81 mg PO HS 11/21/18 04/17/20 History calcium citrate-vitamin D3 2 tab PO DAILY@1200 11/21/18 04/17/20 History [Citracal + D Maximum] coQ10 (ubiquinol) 200 mg PO DAILY 11/21/18 04/17/20 History omega 2-lyw-css-fish oil [Fish Oil] 1 cap PO TID 11/21/18 04/17/20 History potassium chloride 20 mEq 20 meq PO QAM #90 tab 06/08/19 04/17/20 Rx tablet,extended release(part/cryst) ergocalciferol (vitamin D2) 1,250 50,000 units PO MONTHLY #21 cap 06/24/19 04/17/20 History mcg (50,000 unit) capsule verapamil 80 mg tablet 80 mg PO DAILY #90 tab 06/29/19 04/17/20 Rx losartan 100 mg tablet 100 mg PO QAM #90 tab 11/22/19 04/17/20 Rx metoprolol succinate 100 mg 100 mg PO DAILY #90 tab 12/02/19 04/17/20 Rx tablet,extended release 24 hr docusate sodium 100 mg capsule 100 mg PO BID PRN cap 01/04/20 04/17/20 History mometasone-formoterol HFA 100 2 puffs INH DAILY #13 gm 02/07/20 04/17/20 Rx mcg-5 mcg/actuation aerosol inhaler gabapentin 100 mg capsule 100 mg PO QAM #90 cap 04/03/20 04/17/20 Rx gabapentin 300 mg capsule 300 mg PO QPM #90 cap 04/03/20 04/17/20 Rx amoxicillin 875 mg-potassium 1 tab PO BID #20 tab 04/17/20 04/17/20 Rx clavulanate 125 mg tablet clonidine HCl 0.1 mg PO QPM 04/17/20 04/17/20 History clonidine HCl 0.2 mg PO QAM 04/17/20 04/17/20 History furosemide 20 mg PO BID 04/17/20 04/17/20 History Patient History Medical History Chronic back pain Chronic kidney disease, stage II (mild) (Chronic) Diastolic dysfunction follows chicho/ Dr. Valenzuela Dislocation, elbow closed Fibromyalgia HTN (hypertension) (Chronic) Hyperlipidemia Morbid obesity No pertinent family history Sensorineural hearing loss (SNHL) of both ears (Inactive) Sleep apnea CPAP SOBOE (shortness of breath on exertion) (Chronic) Spinal stenosis Vitamin D deficiency (Chronic) Surgical History H/O colonoscopy H/O shoulder surgery Rotator cuff repair, [facility] [place] 2010. [place] without complications. 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 Beliefs That Will Affect Care: None marital status: Current Living Situation: Spouse current occupational status: retired Other Information That Helps Us Care for You: No Feels Safe at Home: Yes Safety Concerns: Feels Safe At This Time Smoking Status: Never smoker Second Hand Exposure: No ; Hx Alcohol Use: No Hx Substance Use: No Seatbelt Use: always Review of Systems Constitutional: as per Subjective / HPI Respiratory: + dyspnea on exertion Cardiovascular: no chest pain Gastrointestinal: as per Subjective / HPI Genitourinary: as per Subjective / HPI Neurologic: no gait abnormality and no localized weakness Physical Exam Constitutional: + obese; no acute distress Neck: Thyroid: normal thyroid Respiratory: normal respiratory effort, lungs clear to auscultation Cardiovascular: Rate/Rhythm: regular rate and regular rhythm Gastrointestinal (Abdomen): normal bowel sounds, soft, nontender, no hepatosplenomegaly Percussion/Palpation: + abdomen tender (Left iliac fossa area extending up to the left lateral abdomen at the level of the umbilicus) and abdomen soft Skin: no rashes, warm and dry Lymphatic: no cervical lymphadenopathy Results & Data Vital Signs (Past 12 Hours) Vital Signs Temp Pulse Pulse Resp BP BP Pulse Ox 04/18/20 12:38 73 144/80 H 04/18/20 08:12 71 147/55 H 04/18/20 07:46 37 C 71 18 147/55 H 94 04/18/20 07:01 67 04/18/20 04:23 59 L 107/61 04/18/20 03:24 78 18 94 Laboratory Results 04/18/20 04/18/20 04/18/20 Range/Units 12:00 06:20 06:20 WBC 13.27 H (4.8-10.8) K/uL RBC 4.11 L (4.2-5.4) M/uL Hgb 13.2 (12.0-16.0) g/dL Hct 40.9 (37-47) % MCV 99.5 (80-100) fL MCH 32.1 (25-34) pg MCHC 32.3 (32-36) g/dL RDW Std Deviation 49.9 H (36.4-46.3) fL RDW Coeff of Jose J 13.7 (11.5-14.5) % Plt Count 261 (130-400) K/uL MPV 11.7 H (7.4-10.4) fL Immature Gran % (Auto) 0.2 % Neut % (Auto) 77.6 % Lymph % (Auto) 11.7 % [place] % (Auto) 10.1 % Eos % (Auto) 0.2 % Baso % (Auto) 0.2 % Immature Gran # (Auto) 0.02 (0.00-0.02) K/uL Neut # (Auto) 10.31 H (1.4-6.5) K/uL Lymph # (Auto) 1.55 (1.2-3.4) K/uL [place] # (Auto) 1.34 H (0.11-0.59) K/uL Eos # (Auto) 0.03 (0-0.5) K/uL Baso # (Auto) 0.02 (0-0.2) K/uL Sodium 138 (136-145) mmol/L Potassium 3.5 (3.5-5.1) mmol/L Chloride 104 (98-107) mmol/L Carbon Dioxide 27 (21-32) mmol/L Anion Gap 7.0 (3-11) BUN 18 (7-18) mg/dl Creatinine 1.11 (0.6-1.2) mg/dl Est Cr Clr Drug Dosing 53.5 Est GFR ( Amer) 57.5 Est GFR (Non-Af Amer) 49.6 BUN/Creatinine Ratio 15.9 (10-20) Glucose 124 H (70-99) mg/dl POC Glucose 112 H (70-99) mg/dl Calcium 8.3 L (8.5-10.1) mg/dl Total Bilirubin (0.2-1) mg/dl AST (15-37) U/L ALT (12-78) U/L Alkaline Phosphatase (45-117) U/L Total Protein (6.4-8.2) gm/dl Albumin (3.4-5.0) gm/dl Globulin (2.5-4.0) gm/dl Albumin/Globulin Ratio (0.9-2) Lipase (73-393) U/L 25-OH Vitamin D Total (30-100) ng/ml PTH Intact (18.4-80.1) pg/ml Urine Color Urine Appearance (Clear) Urine pH (4.5-7.5) Ur Specific [place] (1.000-1.030) Urine Protein (Negative) Urine Glucose (UA) (Negative) Urine Ketones (Negative) Urine Blood (Negative) Urine Nitrite (Negative) Urine Bilirubin (Negative) Urine Urobilinogen (Negative) Ur Leukocyte Esterase (Negative) Ur Random Creatinine mg/dl U Random Total Protein (0-11.9) mg/dl Protein/Creatinin Ratio 04/17/20 04/17/20 04/17/20 Range/Units 18:01 18:01 18:01 WBC (4.8-10.8) K/uL RBC (4.2-5.4) M/uL Hgb (12.0-16.0) g/dL Hct (37-47) % MCV (80-100) fL MCH (25-34) pg MCHC (32-36) g/dL RDW Std Deviation (36.4-46.3) fL RDW Coeff of Jose J (11.5-14.5) % Plt Count (130-400) K/uL MPV (7.4-10.4) fL Immature Gran % (Auto) % Neut % (Auto) % Lymph % (Auto) % [place] % (Auto) % Eos % (Auto) % Baso % (Auto) % Immature Gran # (Auto) (0.00-0.02) K/uL Neut # (Auto) (1.4-6.5) K/uL Lymph # (Auto) (1.2-3.4) K/uL [place] # (Auto) (0.11-0.59) K/uL Eos # (Auto) (0-0.5) K/uL Baso # (Auto) (0-0.2) K/uL Sodium 138 (136-145) mmol/L Potassium 3.9 (3.5-5.1) mmol/L Chloride 103 (98-107) mmol/L Carbon Dioxide 27 (21-32) mmol/L Anion Gap 8.0 (3-11) BUN 18 (7-18) mg/dl Creatinine 1.09 (0.6-1.2) mg/dl Est Cr Clr Drug Dosing Not Reportable Est GFR ( Amer) 58.7 Est GFR (Non-Af Amer) 50.7 BUN/Creatinine Ratio 16.7 (10-20) Glucose 117 H (70-99) mg/dl POC Glucose (70-99) mg/dl Calcium 8.8 (8.5-10.1) mg/dl Total Bilirubin 0.6 (0.2-1) mg/dl AST 13 L (15-37) U/L ALT 24 (12-78) U/L Alkaline Phosphatase 112 (45-117) U/L Total Protein 8.2 (6.4-8.2) gm/dl Albumin 3.6 (3.4-5.0) gm/dl Globulin 4.6 H (2.5-4.0) gm/dl Albumin/Globulin Ratio 0.8 L (0.9-2) Lipase 104 (73-393) U/L 25-OH Vitamin D Total 32.4 (30-100) ng/ml PTH Intact 50.8 (18.4-80.1) pg/ml Urine Color Urine Appearance (Clear) Urine pH (4.5-7.5) Ur Specific [place] (1.000-1.030) Urine Protein (Negative) Urine Glucose (UA) (Negative) Urine Ketones (Negative) Urine Blood (Negative) Urine Nitrite (Negative) Urine Bilirubin (Negative) Urine Urobilinogen (Negative) Ur Leukocyte Esterase (Negative) Ur Random Creatinine mg/dl U Random Total Protein (0-11.9) mg/dl Protein/Creatinin Ratio 04/17/20 04/17/20 04/17/20 Range/Units 18:01 17:15 17:15 WBC 12.84 H (4.8-10.8) K/uL RBC 4.29 (4.2-5.4) M/uL Hgb 13.9 (12.0-16.0) g/dL Hct 42.2 (37-47) % MCV 98.4 (80-100) fL MCH 32.4 (25-34) pg MCHC 32.9 (32-36) g/dL RDW Std Deviation 48.6 H (36.4-46.3) fL RDW Coeff of Jose J 13.7 (11.5-14.5) % Plt Count 261 (130-400) K/uL MPV 11.1 H (7.4-10.4) fL Immature Gran % (Auto) 0.2 % Neut % (Auto) 83.3 % Lymph % (Auto) 8.2 % [place] % (Auto) 7.6 % Eos % (Auto) 0.5 % Baso % (Auto) 0.2 % Immature Gran # (Auto) 0.03 H (0.00-0.02) K/uL Neut # (Auto) 10.69 H (1.4-6.5) K/uL Lymph # (Auto) 1.05 L (1.2-3.4) K/uL [place] # (Auto) 0.97 H (0.11-0.59) K/uL Eos # (Auto) 0.07 (0-0.5) K/uL Baso # (Auto) 0.03 (0-0.2) K/uL Sodium (136-145) mmol/L Potassium (3.5-5.1) mmol/L Chloride (98-107) mmol/L Carbon Dioxide (21-32) mmol/L Anion Gap (3-11) BUN (7-18) mg/dl Creatinine (0.6-1.2) mg/dl Est Cr Clr Drug Dosing Est GFR ( Amer) Est GFR (Non-Af Amer) BUN/Creatinine Ratio (10-20) Glucose (70-99) mg/dl POC Glucose (70-99) mg/dl Calcium (8.5-10.1) mg/dl Total Bilirubin (0.2-1) mg/dl AST (15-37) U/L ALT (12-78) U/L Alkaline Phosphatase (45-117) U/L Total Protein (6.4-8.2) gm/dl Albumin (3.4-5.0) gm/dl Globulin (2.5-4.0) gm/dl Albumin/Globulin Ratio (0.9-2) Lipase (73-393) U/L 25-OH Vitamin D Total (30-100) ng/ml PTH Intact (18.4-80.1) pg/ml Urine Color Yellow Urine Appearance Clear (Clear) Urine pH 6.0 (4.5-7.5) Ur Specific [place] 1.010 (1.000-1.030) Urine Protein Negative (Negative) Urine Glucose (UA) Negative (Negative) Urine Ketones Negative (Negative) Urine Blood Negative (Negative) Urine Nitrite Negative (Negative) Urine Bilirubin Negative (Negative) Urine Urobilinogen Negative (Negative) Ur Leukocyte Esterase Negative (Negative) Ur Random Creatinine 19.6 mg/dl U Random Total Protein < 5.0 (0-11.9) mg/dl Protein/Creatinin Ratio TNP Diagnostic Findings CT abd pelvis wo con CLINICAL HISTORY: 70 years-old Female presenting with Left abdominal pain, mid to upper abdominal pain, diverticulitis hx. TECHNIQUE: Multidetector CT of the abdomen and pelvis was performed without the use of intravenous contrast. IV contrast: None. One or more dose lowering techniques were used consistent with the principles of ALARA (as low as reasonably achievable), including automatic exposure control, mA or kV adjustment to individual patient size, and/or use of iterative reconstruction. COMPARISON: 03/25/2020. CT DOSE (mGy.cm): The estimated cumulative dose is 1787.28 mGy.cm. FINDINGS: Scaler topogram: Unremarkable. Lung bases: Normal heart size. Coronary artery and aortic valve calcification. No pericardial or pleural effusion. Minimal dependent changes likely atelectasis. Liver: Normal morphology. Density consistent with hepatic steatosis. Biliary: No gross biliary ductal dilatation allowing for noncontrast technique. Normal gallbladder. Pancreas: Mild parenchymal atrophy. Spleen: Normal noncontrast appearance. Adrenal glands: Normal noncontrast appearance. Kidneys and ureters: Prominent lobulations of the renal parenchyma, which is otherwise normal allowing for noncontrast technique. No nephrolithiasis. No hydronephrosis. Normal ureters. Bladder: Normal noncontrast appearance. Pelvic organs: Uterus surgically absent. Bowel: Diverticulosis of the sigmoid and descending colon. Interval increase in now moderate to severe pericolonic fat stranding at the level of the junction of the descending and sigmoid colon. Increased adjacent peritoneal thickening. Several foci of gas are suspected to be extraluminal in the region of inflammation. Limited foci of mesenteric gas. Ill-defined surrounding fluid without a focal fluid collection to suggest abscess. No bowel obstruction. Peritoneal cavity: No free fluid. No focal fluid collection to suggest abscess as mentioned. Few foci of extraluminal gas as mentioned. No free intraperitoneal gas. Lymph nodes: No gross lymphadenopathy allowing for noncontrast technique. Vasculature: Atherosclerosis of the normal caliber abdominal aorta. Abdominal wall: Small fat-containing umbilical hernia. Musculoskeletal: Degenerative changes of the spine. Degenerative changes of the hips. IMPRESSION: 1. Interval worsening of the now moderate to severe diverticulitis at the junction of the descending and sigmoid colon. Several foci of extraluminal gas and mesenteric gas in the left lower quadrant. No discrete abscess at this time though ill-defined surrounding fluid suggests phlegmonous change. 2. Hepatic steatosis.
--- NOTE | 2020-04-18 17:01 | Billing Data ---
Date of Service April 18, 2020 Coding Level of Care Code 03776 Subseq Hosp Care Lvl 3
[2020-04-19] MEDS: METOPROLOL TARTRATE 1 MG/ML VIAL IV SCH ×7 (00:31→23:26)
[2020-04-19] MEDS: PIPERACILLIN/TAZOBACTAM 4.5 GM in DEXTROSE 5% 100 ML IV SCH ×4 (00:38→23:27)
[2020-04-19] MEDS: ONDANSETRON INJ 2 MG/ML 2 ML VIAL IV PRN (04:23)
[2020-04-19] MEDS: ACETAMINOPHEN 1,000 MG/100 ML VIAL IV PRN (04:38)
--- NOTE | 2020-04-19 05:31 | Billing Data ---
Date of Service April 19, 2020 Coding Level of Care Code 44545 Initial Inpt Care Lvl 3
[2020-04-19 06:08] LABS: Basophils # (auto) 0.01 K/uL (0-0.2); Basophils % (auto) 0.1 %; Eosinophils # (auto) 0.08 K/uL (0-0.5); Eosinophils % (auto) 0.6 %; Hematocrit (blood only) 39.1 % (37-47); Hemoglobin 12.7 g/dL (12.0-16.0); Immature Granulocytes # (auto) 0.03 K/uL (0.00-0.02); Immature Granulocytes % (auto) 0.2 %; Lymphocytes # (auto) 0.99 K/uL (1.2-3.4); Mean Corpuscular Hemoglobin 32.3 pg (25-34); Mean Corpuscular Hgb Conc 32.5 g/dL (32-36); Mean Corpuscular Volume 99.5 fL (80-100); Mean Platelet Volume 11.1 fL (7.4-10.4); Monocytes # (auto) 1.42 K/uL (0.11-0.59); Monocytes % (auto) 11.4 %; Neutrophils # (auto) 9.89 K/uL (1.4-6.5); Neutrophils % (auto) 79.7 %; Platelet Count 220 K/uL (130-400); RDW Coefficient of Variation 13.8 % (11.5-14.5); RDW Standard Deviation 50.3 fL (36.4-46.3); Red Blood Count 3.93 M/uL (4.2-5.4); White Blood Count 12.42 K/uL (4.8-10.8)
[2020-04-19 06:33] LABS: BUN Creatinine Ratio 13.1 (10-20); Calcium 7.9 mg/dl (8.5-10.1); Creatinine Clr Calc Pharmacy 54.4 ml/min; Est GFR (African American) 58.7; Est GFR (Non-African American) 50.7; Potassium 3.5 mmol/L (3.5-5.1)
[2020-04-19 07:21] LABS: Appearance Urine Clear (Clear); Bacteria Urine Automated Negative (Negative); Bilirubin Urine Negative (Negative); Blood Urine Negative (Negative); Color Urine Yellow; Epithelial Cell Urine Auto >30 /lpf (0-5); Glucose Urine UA Negative (Negative); Ketones Urine 1+ (Negative); Leukocyte Esterase Urine Negative (Negative); Nitrite Urine Negative (Negative); Protein Urine 1+ (Negative); RBC Urine Automated 0-4 /hpf (0-4); Urobilinogen Urine Negative (Negative)
[2020-04-19] MEDS: FLUTICASONE/VILANTEROL 100/25MCG 14 PUFFS/INHALER INH SCH (09:36)
[2020-04-19] MEDS: PANTOprazole 40 MG in SYRINGE 0 ML IV SCH (11:54)
--- NOTE | 2020-04-19 13:35 | Surgery Progress Note ---
Date of Service April 19, 2020 Assessment & Plan (1) Diverticulitis large intestine: This patient has acute diverticulitis at the junction of the descending and sigmoid colon with microperforation, no abscess. -tmax last night of 37.8, afebrile today - pain mildly improved - passing flatus - mild improvement in leukocytosis Plan: Continue conservative measures with IV antibiotics, NPO , may have ice chips, Pain management as needed IV tylenol added, will also add PO Percocet prn pain Encouraged ambulation continue medical management repeat am labs Dr. Olmos was present during my examination agrees with above Subjective pain is better today but still having episodes of severe sharp pain in the left side, has occurred twice already today mild nausea no vomiting passing gas but no bowel movement mild fever last night was given Tylenol urinating without difficulty Physical Exam Constitutional: WD/WN, vitals as above + morbidly obese; no acute distress Gastrointestinal (Abdomen): Inspection/Auscultation: abdomen normal to inspection; abdomen not distended Percussion/Palpation: + abdomen tender (LUQ and Left mid abdomen, improved but tender on mild palpation), + guarding (voluntary guarding left abdomen) and abdomen soft; abdomen not rigid Skin: no rashes, warm and dry Psychiatric: A+Ox3, euthymic affect Results & Data Vital Signs (Past 12 Hours) Vital Signs Temp Pulse Pulse Resp BP BP Pulse Ox 04/19/20 11:55 81 134/64 04/19/20 11:36 36.9 C 81 18 134/64 96 04/19/20 08:08 74 123/73 04/19/20 07:46 37.1 C 74 20 127/73 93 04/19/20 06:05 66 130/69 04/19/20 03:50 37.8 C H 96 H 19 160/78 H 92 Laboratory Results 04/19/20 04/19/20 04/19/20 Range/Units 06:30 05:49 05:49 WBC 12.42 H (4.8-10.8) K/uL RBC 3.93 L (4.2-5.4) M/uL Hgb 12.7 (12.0-16.0) g/dL Hct 39.1 (37-47) % MCV 99.5 (80-100) fL MCH 32.3 (25-34) pg MCHC 32.5 (32-36) g/dL RDW Std Deviation 50.3 H (36.4-46.3) fL RDW Coeff of Jose J 13.8 (11.5-14.5) % Plt Count 220 (130-400) K/uL MPV 11.1 H (7.4-10.4) fL Immature Gran % (Auto) 0.2 % Neut % (Auto) 79.7 % Lymph % (Auto) 8.0 % [place] % (Auto) 11.4 % Eos % (Auto) 0.6 % Baso % (Auto) 0.1 % Immature Gran # (Auto) 0.03 H (0.00-0.02) K/uL Neut # (Auto) 9.89 H (1.4-6.5) K/uL Lymph # (Auto) 0.99 L (1.2-3.4) K/uL [place] # (Auto) 1.42 H (0.11-0.59) K/uL Eos # (Auto) 0.08 (0-0.5) K/uL Baso # (Auto) 0.01 (0-0.2) K/uL Sodium 141 (136-145) mmol/L Potassium 3.5 (3.5-5.1) mmol/L Chloride 107 (98-107) mmol/L Carbon Dioxide 28 (21-32) mmol/L Anion Gap 6.0 (3-11) BUN 14 (7-18) mg/dl Creatinine 1.09 (0.6-1.2) mg/dl Est Cr Clr Drug Dosing 54.4 ml/min Est GFR ( Amer) 58.7 Est GFR (Non-Af Amer) 50.7 BUN/Creatinine Ratio 13.1 (10-20) Glucose 123 H (70-99) mg/dl Calcium 7.9 L (8.5-10.1) mg/dl Urine Color Yellow Urine Appearance Clear (Clear) Urine pH 5.0 (4.5-7.5) Ur Specific [place] 1.030 (1.000-1.030) Urine Protein 1+ H (Negative) Urine Glucose (UA) Negative (Negative) Urine Ketones 1+ H (Negative) Urine Blood Negative (Negative) Urine Nitrite Negative (Negative) Urine Bilirubin Negative (Negative) Urine Urobilinogen Negative (Negative) Ur Leukocyte Esterase Negative (Negative) Urine WBC (Auto) 1-5 (0-5) /hpf Urine RBC (Auto) 0-4 (0-4) /hpf U Hyaline Cast (Auto) 1-5 (0-5) /lpf U Epithel Cells (Auto) >30 H (0-5) /lpf Urine Bacteria (Auto) Negative (Negative)
--- NOTE | 2020-04-19 13:50 | Hospitalist Progress Note ---
Date of Service April 19, 2020 Assessment & Plan (1) Diverticulitis large intestine: Patient is a 70yoF with PMHx Diverticulitis, CKD Stage II, Hyperlipidemia, Hypertension, Fibromyalgia with perforated diverticulitis. Diverticulitis -CT Abdomen noted mod-severe diverticulitis of descending and sigmoid colon with extraluminal gas and mesenteric gas. -Appreciate General surgery recs -Continue NPO status for bowel rest, can have ice chips -continue IV Zosyn -PO Percocet PRN for pain -encourage ambulation -Continue Protonix 40mg IV -Continue Morphine 4mg q6h PRN for pain -Continue Zofran 4mg IV q6h PRN for nausea -Hold fluids due to tightness in lower extremities. -will continue to monitor progress Hypertension -Continue Lopressor 5mg IV q4h -Continue Hydralazine 10mg q6h PRN SBP >180, DBP >110 -Hold home PO BP medications at this time while NPO -Will monitor for rebound hypertension as patient takes Clonidine 0.2mg QAM and 0.1mg QHS Hyperlipidemia -Holding home ASA 81mg Fibromyalgia -Holding home gabapentin while NPO Sleep Apnea -Allow for use of patients CPAP QHS Dispo: Moved to Med/Surg FEN: NPO, LR 80ml/hr DVT: SCD Code: Conditional - No Invasive Airway (2) Generalized abdominal pain: (3) Hyperlipidemia: (4) HTN (hypertension): (5) Fibromyalgia: (6) Chronic kidney disease, stage II (mild): (7) Sleep apnea: Admission and Anticipated Discharge Date Admission Date: April 17, 2020 Supervising Physician Co-Signing Physician Notes I personally examined the patient and verified all doty points of history and exam, discussed case, and agree with decision making with Dr Quiñones. sharp pain from time to time. ice chips going well though no significant nausea and pain not really worse. vitals noted nad heent nc at mmm breathing unlabored no accessory muscles good effort skin no rashes no pallor or icterus diverticulitis w perforation - fortunately stable - no surgical intervention at this time. ongoing IV abx, serial exams, supportive care, time. since tolerating ice chips so well and showing progress, can give trial of clear liquids otherwise as above Subjective Pt seen this AM, resting comfortably in bed. States she had some tightness with numbness and tingling in her legs overnight. Still nauseous, does not feel like she can try food today. Review of Systems Review of Systems: All systems reviewed & are unremarkable except as noted in HPI & below Physical Exam Physical Exam: General: Alert, oriented. No acute distress Skin: No noted rashes or bruises Psych: Appropriate mood and affect Neuro: No gross deficits HEENT: NC/AT Chest: Nontender to palpation. CV: RRR, Normal s1, s2. No murmurs appreciated Resp: Breath sounds clear bilaterally, no increased effort of breathing. Abdomen: Soft, tender in LLQ and around umbilicus. No guarding. Extremities: Trace edema in lower extremities bilaterally. Results & Data Results & Data ([facility]) Vital Signs (Past 12 Hours) Vital Signs Temp Pulse Pulse Resp BP BP Pulse Ox 04/19/20 11:55 81 134/64 04/19/20 11:36 36.9 C 81 18 134/64 96 04/19/20 08:08 74 123/73 04/19/20 07:46 37.1 C 74 20 127/73 93 04/19/20 06:05 66 130/69 04/19/20 03:50 37.8 C H 96 H 19 160/78 H 92 Resident Activity Tracking Resident Involvement: Resident Care Provided Care Provided: Adult Hospital Medicine
[2020-04-19] MEDS: OXYCODONE/ACETAMINOPHEN 5mg/325mg TAB PO PRN (14:59)
--- NOTE | 2020-04-19 18:07 | Billing Data ---
Date of Service April 19, 2020 Coding Level of Care Code 84631 Subseq Hosp Care Lvl 3
[2020-04-20] MEDS: METOPROLOL TARTRATE 1 MG/ML VIAL IV SCH ×5 (03:23→21:12)
[2020-04-20] MEDS: OXYCODONE/ACETAMINOPHEN 5mg/325mg TAB PO PRN ×3 (03:53→21:14)
[2020-04-20 06:30] LABS: Basophils # (auto) 0.03 K/uL (0-0.2); Basophils % (auto) 0.4 %; Eosinophils # (auto) 0.22 K/uL (0-0.5); Eosinophils % (auto) 2.7 %; Hematocrit (blood only) 35.4 % (37-47); Hemoglobin 11.3 g/dL (12.0-16.0); Immature Granulocytes # (auto) 0.01 K/uL (0.00-0.02); Immature Granulocytes % (auto) 0.1 %; Lymphocytes # (auto) 1.17 K/uL (1.2-3.4); Lymphocytes % (auto) 14.1 %; Mean Corpuscular Hemoglobin 31.7 pg (25-34); Mean Corpuscular Hgb Conc 31.9 g/dL (32-36); Mean Corpuscular Volume 99.4 fL (80-100); Mean Platelet Volume 11.1 fL (7.4-10.4); Monocytes # (auto) 0.86 K/uL (0.11-0.59); Monocytes % (auto) 10.4 %; Neutrophils # (auto) 5.99 K/uL (1.4-6.5); Neutrophils % (auto) 72.3 %; Platelet Count 218 K/uL (130-400); RDW Coefficient of Variation 13.6 % (11.5-14.5); RDW Standard Deviation 49.7 fL (36.4-46.3); Red Blood Count 3.56 M/uL (4.2-5.4); White Blood Count 8.28 K/uL (4.8-10.8)
[2020-04-20 07:03] LABS: BUN Creatinine Ratio 13.7 (10-20); Calcium 7.7 mg/dl (8.5-10.1); Creatinine Clr Calc Pharmacy 61.6 ml/min; Est GFR (African American) 68.5; Est GFR (Non-African American) 59.1; Potassium 3.1 mmol/L (3.5-5.1)
[2020-04-20] MEDS ORDERED: POTASSIUM CHLORIDE 20 MEQ TABCR PO STA (08:33)
[2020-04-20] MEDS ORDERED: POLYETHYLENE (MIRALAX) 17 GM PACK PO PRN (08:34)
[2020-04-20] MEDS: FLUTICASONE/VILANTEROL 100/25MCG 14 PUFFS/INHALER INH SCH (09:06)
[2020-04-20] MEDS: PIPERACILLIN/TAZOBACTAM 4.5 GM in DEXTROSE 5% 100 ML IV SCH ×2 (09:10→16:56)
--- NOTE | 2020-04-20 10:47 | Surgery Progress Note ---
Date of Service April 20, 2020 Assessment & Plan (1) Diverticulitis large intestine: This patient has acute diverticulitis at the junction of the descending and sigmoid colon with microperforation, no abscess. - afebrile today - pain improving - passing flatus, no bowel movement - leukocytosis resolved Plan: Continue conservative measures continue IV antibiotics, continue clear liquids for now, may transition to full liquids later today pain management as needed IV tylenol and PO Percocet prn pain Encourage ambulation Miralax prn continue medical management (2) SVT (supraventricular tachycardia): HR in 180's was given IV metoprolol hemodynamically stable Continue medical management (3) Hypokalemia: Potassium 3.1 today normally takes oral potassium at home replace potassium repeat bmp in am continue medical management Dr. Olmos was present during my examination agrees with above Subjective my heart was racing not too long ago, felt it up in my neck, "that never happened before" pain improving, has not had the sharp stabbing pains today so far passing gas but no bowel movement yet no n/v, tolerated clear liquids Physical Exam Constitutional: WD/WN, vitals as above + morbidly obese; no acute distress sitting up in chair at bedside Respiratory: normal respiratory effort; no respiratory distress Gastrointestinal (Abdomen): Inspection/Auscultation: abdomen normal to inspection; abdomen not distended Percussion/Palpation: + abdomen tender (Left mid abdomen and LLQ) and abdomen soft; no guarding and abdomen not rigid Skin: no rashes, warm and dry Psychiatric: A+Ox3, euthymic affect Results & Data Vital Signs (Past 12 Hours) Vital Signs Temp Pulse Pulse Resp BP BP Pulse Ox 04/20/20 08:46 180 H 173/107 H 04/20/20 07:47 36.6 C 81 20 157/75 H 94 04/20/20 07:23 64 04/20/20 04:47 36.8 C 80 19 175/77 H 93 04/20/20 03:54 86 18 94 04/20/20 03:23 59 L 04/20/20 00:43 68 04/20/20 00:02 36.9 C 67 20 150/79 H 95 04/19/20 23:46 78 18 94 04/19/20 23:26 72 Laboratory Results 05/28/20 05/28/20 Range/Units 06:13 06:13 WBC 8.28 (4.8-10.8) K/uL RBC 3.56 L (4.2-5.4) M/uL Hgb 11.3 L (12.0-16.0) g/dL Hct 35.4 L (37-47) % MCV 99.4 (80-100) fL MCH 31.7 (25-34) pg MCHC 31.9 L (32-36) g/dL RDW Std Deviation 49.7 H (36.4-46.3) fL RDW Coeff of Jose J 13.6 (11.5-14.5) % Plt Count 218 (130-400) K/uL MPV 11.1 H (7.4-10.4) fL Immature Gran % (Auto) 0.1 % Neut % (Auto) 72.3 % Lymph % (Auto) 14.1 % [place] % (Auto) 10.4 % Eos % (Auto) 2.7 % Baso % (Auto) 0.4 % Immature Gran # (Auto) 0.01 (0.00-0.02) K/uL Neut # (Auto) 5.99 (1.4-6.5) K/uL Lymph # (Auto) 1.17 L (1.2-3.4) K/uL [place] # (Auto) 0.86 H (0.11-0.59) K/uL Eos # (Auto) 0.22 (0-0.5) K/uL Baso # (Auto) 0.03 (0-0.2) K/uL Sodium 141 (136-145) mmol/L Potassium 3.1 L (3.5-5.1) mmol/L Chloride 108 H (98-107) mmol/L Carbon Dioxide 26 (21-32) mmol/L Anion Gap 7.0 (3-11) BUN 13 (7-18) mg/dl Creatinine 0.96 (0.6-1.2) mg/dl Est Cr Clr Drug Dosing 61.6 ml/min Est GFR ( Amer) 68.5 Est GFR (Non-Af Amer) 59.1 BUN/Creatinine Ratio 13.7 (10-20) Glucose 102 H (70-99) mg/dl Calcium 7.7 L (8.5-10.1) mg/dl
[2020-04-20] MEDS: PANTOprazole 40 MG in SYRINGE 0 ML IV SCH (11:40)
[2020-04-20] MEDS: ACETAMINOPHEN 1,000 MG/100 ML VIAL IV PRN (11:57)
--- NOTE | 2020-04-20 14:54 | Hospitalist Progress Note ---
Date of Service April 20, 2020 Assessment & Plan (1) Diverticulitis large intestine: Patient is a 70yoF with PMHx Diverticulitis, CKD Stage II, Hyperlipidemia, Hypertension, Fibromyalgia with perforated diverticulitis. Diverticulitis -CT Abdomen noted mod-severe diverticulitis of descending and sigmoid colon with extraluminal gas and mesenteric gas. -Appreciate General surgery recs -Continue conservative measures -continue IV antibiotics, -continue clear liquids for now, may transition to full liquids later today -pain management as needed IV tylenol and PO Percocet prn pain -Encourage ambulation -Miralax prn -continue medical management -Continue Protonix 40mg IV -Continue Zofran 4mg IV q6h PRN for nausea -Hold fluids due to tightness in lower extremities. -will continue to monitor progress SVT -Had a run on 04/20 -continue Lopressor 5mg IV q4h as needed -f/u with cardiology after discharge Hypertension -Continue Lopressor 5mg IV q4h -Continue Hydralazine 10mg q6h PRN SBP >180, DBP >110 -hold home PO BP medications Hyperlipidemia -continue home ASA 81mg Fibromyalgia -continue home gabapentin Sleep Apnea -Allow for use of patients CPAP QHS Dispo: Moved to Med/Surg FEN: Advancing diet DVT: SCD Code: Conditional - No Invasive Airway (2) Generalized abdominal pain: (3) Hyperlipidemia: (4) HTN (hypertension): (5) Fibromyalgia: (6) Chronic kidney disease, stage II (mild): (7) Sleep apnea: Admission and Anticipated Discharge Date Admission Date: April 17, 2020 Supervising Physician Co-Signing Physician Notes I personally examined the patient and verified all doty points of history and exam, discussed case, and agree with decision making with Dr Quiñones. sharp pain from time to time LLQ - a little more today but also relates that she's eating a little more. racing heart this AM - resolved. never happened before at home. vitals noted nad heent nc at mmm breathing unlabored no accessory muscles good effort skin no rashes no pallor or icterus diverticulitis w perforation - fortunately stable - no surgical intervention at this time. overall appears improving - suspect worse pain is probably from eating more - with that, will hold at liquids for now, continue to follow SVT - resolved. does not appear to have happened before - for now, watchful waiting, prn treatments. depending on +/- recurrence then will dictate plan of treatment vs monitoring once she is ready for discharge otherwise as above Subjective Pt seen this AM, sitting at bedside. States she had a run of SVT after eating this AM. Needed pain meds overnight but tolerating the advancement of her diet. Denies SOB, nausea or vomiting today. Review of Systems Review of Systems: All systems reviewed & are unremarkable except as noted in Subjective Physical Exam Physical Exam: General: Alert, oriented. No acute distress Skin: No noted rashes or bruises Psych: Appropriate mood and affect Neuro: No gross deficits HEENT: NC/AT Chest: Nontender to palpation. CV: RRR, Normal s1, s2. No murmurs appreciated Resp: Breath sounds clear bilaterally, no increased effort of breathing. Abdomen: Soft, tender in LLQ and around umbilicus. No guarding. Extremities: Trace edema in lower extremities bilaterally. Results & Data Results & Data ([facility]) Vital Signs (Past 12 Hours) Vital Signs Temp Pulse Pulse Resp BP BP Pulse Ox 04/20/20 11:45 88 174/94 H 04/20/20 11:11 36.9 C 78 20 147/82 H 96 04/20/20 08:46 180 H 173/107 H 04/20/20 07:47 36.6 C 81 20 157/75 H 94 04/20/20 07:23 64 04/20/20 04:47 36.8 C 80 19 175/77 H 93 04/20/20 03:54 86 18 94 04/20/20 03:23 59 L Resident Activity Tracking Resident Involvement: Resident Care Provided Care Provided: Adult Hospital Medicine
[2020-04-20] MEDS: ASPIRIN 81 MG ECTAB PO SCH (16:56)
--- NOTE | 2020-04-20 18:19 | Billing Data ---
Date of Service April 20, 2020 Coding Level of Care Code 83252 Subseq Hosp Care Lvl 3
[2020-04-20] MEDS: GABAPENTIN 300 MG CAP PO SCH (21:13)
[2020-04-21] MEDS: METOPROLOL TARTRATE 1 MG/ML VIAL IV SCH ×4 (00:59→11:49)
[2020-04-21] MEDS: PIPERACILLIN/TAZOBACTAM 4.5 GM in DEXTROSE 5% 100 ML IV SCH ×4 (01:00→23:58)
[2020-04-21] MEDS: OXYCODONE/ACETAMINOPHEN 5mg/325mg TAB PO PRN ×2 (05:55→22:07)
[2020-04-21 06:07] LABS: Basophils # (auto) 0.04 K/uL (0-0.2); Basophils % (auto) 0.5 %; Eosinophils # (auto) 0.27 K/uL (0-0.5); Eosinophils % (auto) 3.5 %; Hematocrit (blood only) 35.4 % (37-47); Hemoglobin 11.4 g/dL (12.0-16.0); Immature Granulocytes # (auto) 0.01 K/uL (0.00-0.02); Immature Granulocytes % (auto) 0.1 %; Lymphocytes # (auto) 1.24 K/uL (1.2-3.4); Lymphocytes % (auto) 16.1 %; Mean Corpuscular Hemoglobin 31.8 pg (25-34); Mean Corpuscular Hgb Conc 32.2 g/dL (32-36); Mean Corpuscular Volume 98.9 fL (80-100); Monocytes # (auto) 0.85 K/uL (0.11-0.59); Neutrophils % (auto) 68.8 %; Platelet Count 231 K/uL (130-400); RDW Coefficient of Variation 13.7 % (11.5-14.5); RDW Standard Deviation 49.4 fL (36.4-46.3); Red Blood Count 3.58 M/uL (4.2-5.4); White Blood Count 7.71 K/uL (4.8-10.8)
[2020-04-21 06:40] LABS: BUN Creatinine Ratio 12.9 (10-20); Calcium 7.6 mg/dl (8.5-10.1); Creatinine Clr Calc Pharmacy 59.2 ml/min; Est GFR (African American) 65.2; Est GFR (Non-African American) 56.2; Potassium 3.3 mmol/L (3.5-5.1)
[2020-04-21] MEDS ORDERED: POTASSIUM CHLORIDE 20 MEQ TABCR PO STA (07:28)
[2020-04-21] MEDS: FLUTICASONE/VILANTEROL 100/25MCG 14 PUFFS/INHALER INH SCH (08:07)
[2020-04-21] MEDS: ASPIRIN 81 MG ECTAB PO SCH (08:08)
[2020-04-21] MEDS: GABAPENTIN 100 MG CAP PO SCH (08:08)
[2020-04-21] MEDS: PANTOprazole 40 MG in SYRINGE 0 ML IV SCH (11:49)
[2020-04-21] MEDS ORDERED: POLYETHYLENE (MIRALAX) 17 GM PACK PO STA (12:03)
--- NOTE | 2020-04-21 12:14 | Hospitalist Progress Note ---
Date of Service April 21, 2020 Assessment & Plan (1) Diverticulitis large intestine: Patient is a 70yoF with PMHx Diverticulitis, CKD Stage II, Hyperlipidemia, Hypertension, Fibromyalgia with perforated diverticulitis. Diverticulitis -CT Abdomen noted mod-severe diverticulitis of descending and sigmoid colon with extraluminal gas and mesenteric gas. -Appreciate General surgery recs -Continue conservative measures -continue IV antibiotics, -advance diet -pain management as needed IV tylenol and PO Percocet prn pain -Encourage ambulation -Miralax prn -continue medical management -Continue Protonix 40mg IV -Continue Zofran 4mg IV q6h PRN for nausea -Hold fluids due to tightness in lower extremities. -will continue to monitor progress SVT/Atral tachycardia -Had a run of SVT on 03/31 -Also atrial tachycardia noted on tele -Home PO Verapamil 100mg daily and metoprolol succinate 100mg daily -consider home holter monitor after discharge -f/u with cardiology after discharge Hypertension -Continue Hydralazine 10mg q6h PRN SBP >180, DBP >110 -continue home PO verapamil and metoprolol succinate -hold home clonidine, furosemide, losartan Hyperlipidemia -continue home ASA 81mg Fibromyalgia -continue home gabapentin Sleep Apnea -Allow for use of patients CPAP QHS FEN: Advancing diet DVT: SCD Code: Conditional - No Invasive Airway (2) Generalized abdominal pain: (3) Hyperlipidemia: (4) HTN (hypertension): (5) Fibromyalgia: (6) Chronic kidney disease, stage II (mild): (7) Sleep apnea: Admission and Anticipated Discharge Date Admission Date: April 17, 2020 Supervising Physician Co-Signing Physician Notes I personally examined the patient and verified all doty points of history and exam, discussed case, and agree with decision making with Dr Quiñones. ate full liquids no pain yet. otherwise feeling better. vitals noted nad heent nc at mmm breathing unlabored no accessory muscles good effort skin no rashes no pallor or icterus diverticulitis w perforation - showing improvement. follow through this afternoon - possibly advance diet again tonight. continue IV abx, but possibly cipro/flagyl in 1-2 days heading towards home SVT - resolved. does not appear to have happened before - for now, watchful waiting, can now resume home meds which will help suppress (metoprolol, d iltiazem). depending on +/- recurrence then will dictate plan of treatment vs monitoring once she is ready for discharge otherwise as above Subjective Pt seen this AM, sitting at bedside. Tolerating clears well, no N/V. Abdominal pain infrequently. No further episodes of chest tightness. Review of Systems Review of Systems: All systems reviewed & are unremarkable except as noted in Subjective Physical Exam Physical Exam: General: Alert, oriented. No acute distress Skin: No noted rashes or bruises Psych: Appropriate mood and affect Neuro: No gross deficits HEENT: NC/AT Chest: Nontender to palpation. CV: RRR, Normal s1, s2. No murmurs appreciated Resp: Breath sounds clear but decreased bilaterally, no increased effort of breathing. Abdomen: Soft, tender in LLQ and around umbilicus. No guarding. Extremities: Trace edema in lower extremities bilaterally. Results & Data Results & Data ([facility]) Vital Signs (Past 12 Hours) Vital Signs Temp Pulse Pulse Resp BP BP Pulse Ox 04/21/20 11:49 67 174/76 H 04/21/20 11:47 67 174/76 H 04/21/20 11:02 37.1 C 69 18 153/80 H 92 04/21/20 08:00 61 04/21/20 07:57 74 152/83 H 04/21/20 07:46 37.3 C 74 18 152/83 H 94 04/21/20 04:22 76 172/92 H 04/21/20 03:40 36.7 C 72 21 169/80 H 98 04/21/20 03:07 75 18 93 04/21/20 02:35 72 04/21/20 00:59 76 142/79 H Resident Activity Tracking Resident Involvement: Resident Care Provided Care Provided: Adult Hospital Medicine
--- NOTE | 2020-04-21 13:52 | Billing Data ---
Date of Service April 21, 2020 Coding Level of Care Code 25248 Subseq Hosp Care Lvl 3
[2020-04-21] MEDS: VERAPAMIL HCL 40 MG TAB PO SCH (14:00)
--- NOTE | 2020-04-21 14:07 | Surgery Progress Note ---
Date of Service April 21, 2020 Assessment & Plan (1) Diverticulitis large intestine: This patient has acute diverticulitis at the junction of the descending and sigmoid colon with microperforation, no abscess. - afebrile today - pain improving - passing flatus, no bowel movement - leukocytosis resolved Plan: Continue conservative measures continue IV antibiotics, full liquids today pain management as needed IV tylenol and PO Percocet prn pain Encourage ambulation Miralax dose today continue medical management will need total of 14 days of abx (day 3 of IV abx) will need colonoscopy in 6-8 weeks low fiber diet for 2-4 weeks (2) SVT (supraventricular tachycardia): HR now in 70's, stable Continue medical management (3) Hypokalemia: Potassium 3.3 today normally takes oral potassium at home replace potassium repeat bmp in am continue medical management Dr. Mota covering over weekend Dr. Olmos was present during my examination agrees with above Subjective feeling better today still having abdominal pain mostly when eating passing gas but no bowel movement yet, last bowel movement was Friday no n/v tolerated clear liquids Physical Exam Constitutional: WD/WN, vitals as above + morbidly obese; no acute distress Respiratory: normal respiratory effort Gastrointestinal (Abdomen): Inspection/Auscultation: abdomen normal to inspection; abdomen not distended Percussion/Palpation: + abdomen tender (LLQ but improved) and abdomen soft; no guarding and abdomen not rigid Skin: no rashes, warm and dry Psychiatric: A+Ox3, euthymic affect Results & Data Vital Signs (Past 12 Hours) Vital Signs Temp Pulse Pulse Resp BP BP Pulse Ox 04/21/20 14:00 76 152/87 H 04/21/20 11:49 67 174/76 H 04/21/20 11:47 67 174/76 H 04/21/20 11:02 37.1 C 69 18 153/80 H 92 04/21/20 08:00 61 04/21/20 07:57 74 152/83 H 04/21/20 07:46 37.3 C 74 18 152/83 H 94 04/21/20 04:22 76 172/92 H 04/21/20 03:40 36.7 C 72 21 169/80 H 98 04/21/20 03:07 75 18 93 04/21/20 02:35 72 Laboratory Results 04/21/20 04/21/20 Range/Units 05:47 05:47 WBC 7.71 (4.8-10.8) K/uL RBC 3.58 L (4.2-5.4) M/uL Hgb 11.4 L (12.0-16.0) g/dL Hct 35.4 L (37-47) % MCV 98.9 (80-100) fL MCH 31.8 (25-34) pg MCHC 32.2 (32-36) g/dL RDW Std Deviation 49.4 H (36.4-46.3) fL RDW Coeff of Jose J 13.7 (11.5-14.5) % Plt Count 231 (130-400) K/uL MPV 11.0 H (7.4-10.4) fL Immature Gran % (Auto) 0.1 % Neut % (Auto) 68.8 % Lymph % (Auto) 16.1 % [place] % (Auto) 11.0 % Eos % (Auto) 3.5 % Baso % (Auto) 0.5 % Immature Gran # (Auto) 0.01 (0.00-0.02) K/uL Neut # (Auto) 5.30 (1.4-6.5) K/uL Lymph # (Auto) 1.24 (1.2-3.4) K/uL [place] # (Auto) 0.85 H (0.11-0.59) K/uL Eos # (Auto) 0.27 (0-0.5) K/uL Baso # (Auto) 0.04 (0-0.2) K/uL Sodium 142 (136-145) mmol/L Potassium 3.3 L (3.5-5.1) mmol/L Chloride 109 H (98-107) mmol/L Carbon Dioxide 26 (21-32) mmol/L Anion Gap 7.0 (3-11) BUN 13 (7-18) mg/dl Creatinine 1.00 (0.6-1.2) mg/dl Est Cr Clr Drug Dosing 59.2 ml/min Est GFR ( Amer) 65.2 Est GFR (Non-Af Amer) 56.2 BUN/Creatinine Ratio 12.9 (10-20) Glucose 93 (70-99) mg/dl Calcium 7.6 L (8.5-10.1) mg/dl
[2020-04-21] MEDS: GABAPENTIN 300 MG CAP PO SCH (21:04)
[2020-04-22 06:26] LABS: Basophils # (auto) 0.06 K/uL (0-0.2); Basophils % (auto) 0.9 %; Eosinophils # (auto) 0.26 K/uL (0-0.5); Hematocrit (blood only) 37.9 % (37-47); Hemoglobin 12.1 g/dL (12.0-16.0); Immature Granulocytes # (auto) 0.01 K/uL (0.00-0.02); Immature Granulocytes % (auto) 0.2 %; Lymphocytes # (auto) 1.11 K/uL (1.2-3.4); Lymphocytes % (auto) 17.1 %; Mean Corpuscular Hemoglobin 31.5 pg (25-34); Mean Corpuscular Hgb Conc 31.9 g/dL (32-36); Mean Corpuscular Volume 98.7 fL (80-100); Monocytes # (auto) 0.86 K/uL (0.11-0.59); Monocytes % (auto) 13.2 %; Neutrophils % (auto) 64.6 %; Platelet Count 255 K/uL (130-400); RDW Coefficient of Variation 13.7 % (11.5-14.5); RDW Standard Deviation 49.5 fL (36.4-46.3); Red Blood Count 3.84 M/uL (4.2-5.4)
[2020-04-22 07:14] LABS: BUN Creatinine Ratio 10.7 (10-20); Calcium 7.6 mg/dl (8.5-10.1); Creatinine Clr Calc Pharmacy 61.4 ml/min; Est GFR (African American) 67.6; Est GFR (Non-African American) 58.3
[2020-04-22] MEDS: PIPERACILLIN/TAZOBACTAM 4.5 GM in DEXTROSE 5% 100 ML IV SCH (08:06)
[2020-04-22] MEDS: METOPROLOL SUCC 50MG EXT REL TAB PO SCH (08:09)
[2020-04-22] MEDS: VERAPAMIL HCL 40 MG TAB PO SCH (08:09)
[2020-04-22] MEDS: ASPIRIN 81 MG ECTAB PO SCH (08:09)
[2020-04-22] MEDS: FLUTICASONE/VILANTEROL 100/25MCG 14 PUFFS/INHALER INH SCH (08:09)
[2020-04-22] MEDS: GABAPENTIN 100 MG CAP PO SCH (08:10)
[2020-04-22] MEDS: CIPROFLOXACIN 250 MG TAB PO SCH ×2 (10:54→21:10)
--- NOTE | 2020-04-22 13:44 | Hospitalist Progress Note ---
Date of Service April 22, 2020 Assessment & Plan (1) Diverticulitis large intestine: Patient is a 70yoF with PMHx Diverticulitis, CKD Stage II, Hyperlipidemia, Hypertension, Fibromyalgia with perforated diverticulitis. Diverticulitis -CT Abdomen noted mod-severe diverticulitis of descending and sigmoid colon with extraluminal gas and mesenteric gas. -Appreciate General surgery recs -Continue conservative measures -IV antibiotics transitioned to oral cipro and flagyl -advance diet to low fiber currently -pain management as needed IV tylenol and PO Percocet prn pain -Encourage ambulation -Miralax prn -continue medical management -Continue Zofran 4mg IV q6h PRN for nausea -will continue to monitor progress SVT/Atral tachycardia -Had a run of SVT on 03/31 -Also atrial tachycardia noted on tele -Continue home PO Verapamil 100mg daily and metoprolol succinate 100mg daily -consider home holter monitor after discharge -f/u with cardiology after discharge Hypertension -Continue Hydralazine 10mg q6h PRN SBP >180, DBP >110 -continue home PO verapamil and metoprolol succinate -continue home furosemide and losartan -hold home clonidine Hyperlipidemia -continue home ASA 81mg Fibromyalgia -continue home gabapentin Sleep Apnea -Allow for use of patients CPAP QHS FEN: Advancing diet DVT: SCD Code: Conditional - No Invasive Airway (2) Generalized abdominal pain: (3) Hyperlipidemia: (4) HTN (hypertension): (5) Fibromyalgia: (6) Chronic kidney disease, stage II (mild): (7) Sleep apnea: Admission and Anticipated Discharge Date Admission Date: April 17, 2020 Supervising Physician Co-Signing Physician Notes I personally examined the patient and verified all doty points of history and exa m, discussed case, and agree with decision making with Dr Quiñones. eating low fiber. tolerating PO abx. worried about BP here, but also notes at home she sometimes runs 60 systolic. feels tired when that happens. vitals noted nad heent nc at mmm breathing unlabored no accessory muscles good effort skin no rashes no pallor or icterus diverticulitis w perforation - showing improvement. doing well on low fiber and PO abx - hopefully home HTN - resumed home meds - after discussion that she drops so much at home - held clonidine. her dtr will be bringing her BP logs - will want to review for ?when she drops so low - and revamp home meds accordingly. SVT - resolved. does not appear to have happened before - for now, watchful waiting, can now resume home meds which will help suppress (metoprolol, diltiazem). depending on +/- recurrence then will dictate plan of treatment vs monitoring once she is ready for discharge otherwise as above Subjective Pt seen this AM, sitting at bedside. Tolerating full liquids well, no N/V. Abdominal pain infrequently. No further episodes of chest tightness. Had diarrhea overnight. Review of Systems Review of Systems: All systems reviewed & are unremarkable except as noted in Subjective Physical Exam Physical Exam: General: Alert, oriented. No acute distress Skin: No noted rashes or bruises Psych: Appropriate mood and affect Neuro: No gross deficits HEENT: NC/AT Chest: Nontender to palpation. CV: RRR, Normal s1, s2. No murmurs appreciated Resp: Breath sounds clear but decreased bilaterally, no increased effort of breathing. Abdomen: Soft, nontender on exam. No guarding. Extremities: Trace edema in lower extremities bilaterally. Results & Data Results & Data ([facility]) Vital Signs (Past 12 Hours) Vital Signs Temp Pulse Pulse Resp BP BP Pulse Ox 04/22/20 11:57 36.5 C 84 18 152/71 H 94 04/22/20 08:01 36.7 C 88 18 174/77 H 94 04/22/20 07:20 85 04/22/20 04:35 36.8 C 85 18 165/88 H 96 04/22/20 03:16 89 16 94 04/22/20 02:03 112 H Resident Activity Tracking Resident Involvement: Resident Care Provided Care Provided: Adult Hospital Medicine
[2020-04-22] MEDS: metroNIDAZOLE 500 MG TAB PO SCH ×2 (13:57→21:12)
[2020-04-22] MEDS: LOSARTAN POTASSIUM 50 MG TAB PO SCH (13:57)
--- NOTE | 2020-04-22 15:23 | Surgery Progress Note ---
Date of Service April 22, 2020 Assessment & Plan (1) Diverticulitis large intestine: clinically improving. continue current care no indication for surgical intervention. d/c planning Subjective pt seen. abdomen feeling better each day. her main concern is her BP....nader current diet Physical Exam Physical Exam: alert. nad abd: soft. obese. mild left sided ttp. no g/r/r. Results & Data Vital Signs (Past 12 Hours) Vital Signs Temp Pulse Pulse Resp BP BP Pulse Ox 04/22/20 11:57 36.5 C 84 18 152/71 H 94 04/22/20 08:01 36.7 C 88 18 174/77 H 94 04/22/20 07:20 85 04/22/20 04:35 36.8 C 85 18 165/88 H 96 PG Care Time/CCT Total # of Minutes Spent Total Time Spent with Patient: Total time spent is greater than 50% in coordination of care (as documented) at patient's floor/unit and/or counseling patient: Coding Level of Care Code 75557 Subseq Hosp Care Lvl 2 Diagnoses Diverticulitis large intestine K57.32
--- NOTE | 2020-04-22 17:05 | Billing Data ---
Date of Service April 22, 2020 Coding Level of Care Code 83517 Subseq Hosp Care Lvl 3
[2020-04-22] MEDS ORDERED: cloNIDine HCL 0.1 MG TAB PO SCH (21:00)
[2020-04-22] MEDS: GABAPENTIN 300 MG CAP PO SCH (21:12)
[2020-04-22] MEDS: FUROSEMIDE 20 MG TAB PO SCH (21:12)
--- NOTE | 2020-04-23 06:55 | Discharge Summary ---
Date of Service April 23, 2020 Admission HPI Per Admitting Provider Patient is a 70 year old female with PMHx Diverticulitis, CKD Stage II, Hyperlipidemia, Hypertension, Fibromyalgia who presents today with chief complaint of left sided abdominal pain. Patient notes that she had a similar type of pain at the beginning of the month on 03/25/20 and was treated for diverticulitis with Augmentin. She notes that her current pain feels similar, but it has progressed to the entire left side of her abdomen instead of just the lower portion. She notes that her pain was noticeable the past week, but took a turn for the worst starting last night. She states that it was close to a 8/10 which would progress to sharp 10/10 pains in her L abdominal wall. She notes that movement and deep breathing would worsen the pain. She called her PCP office and was prescribed another course of Augmentin, however, due to the worsening pain she decided to go the the ED for evaluation. She notes that she has had nausea, decreased appetite, and diarrhea. Denies any vomiting, hematochezia, melena, fevers, chills. Currently patient states that her pain has improved to a 7/10 and that it feels more like a discomfort "deep" on the L side of her abdomen. Admission Exam Per Admitting Provider Constitutional: well developed, well nourished, + morbidly obese and cooperative; not combative Eyes: PERRL, conjunctivae normal, anicteric sclerae ENMT: external ear and nose normal, oropharynx normal Neck: trachea midline, no thyromegaly Respiratory: normal respiratory effort, lungs clear to auscultation Cardiovascular: RRR, no murmur, no edema Gastrointestinal (Abdomen): Inspection/Auscultation: + abdomen distended and normal bowel sounds; no high-pitched sounds Percussion/Palpation: + abdomen tender (L upper and lower quadrants) and abdomen soft; no guarding and abdomen not firm Musculoskeletal: no cyanosis or clubbing, extremities motor strength 5/5 Skin: no rashes, warm and dry Psychiatric: A+Ox3, euthymic affect Principal Diagnosis Diverticulitis Discharge Exam General: Alert, oriented. No acute distress Skin: No noted rashes or bruises Psych: Appropriate mood and affect Neuro: No gross deficits HEENT: NC/AT Chest: Nontender to palpation. CV: RRR, Normal s1, s2. No murmurs appreciated Resp: Breath sounds clear bilaterally but decreased, no increased effort of breathing. Abdomen: BS+. Soft, nontender, nondistended. No guarding. Extremities: Trace edema in lower extremities bilaterally. Discharge Data Allergies Allergy/AdvReac Type Severity Reaction Status Date / Time ibuprofen Allergy Intermediate KIDNEY Verified 04/17/20 17:45 RELATED NSAIDS (Non-Steroidal Allergy Intermediate RASH Verified 04/17/20 17:45 Anti-Inflamma duloxetine [From Cymbalta] Allergy Unknown Headache Verified 04/17/20 17:45 Sulfa (Sulfonamide Allergy Unknown hives/rash Verified 04/17/20 17:45 Antibiotics) telmisartan Allergy Unknown MUSCLE Verified 04/17/20 17:45 WEAKNESS SONI Inhibitors AdvReac Mild Cough Verified 04/17/20 17:45 levofloxacin [From Levaquin] AdvReac Mild muscle Verified 04/17/20 17:45 aches ketorolac AdvReac Unknown PCP Verified 04/17/20 17:45 ADVISED TO AVOID DUE TO RENAL FXN Consultations 04/17/20 19:27 ED Decision to Admit Stat 04/17/20 22:38 Consult General Surgery Routine Ordered Studies 04/17/20 17:32 CT abd pelvis wo con Stat Hospital Course (1) Diverticulitis large intestine: Patient is a 70yoF with PMHx Diverticulitis, CKD Stage II, Hyperlipidemia, Hypertension, Fibromyalgia with perforated diverticulitis, medically managed. Admitted on Apr 17 2020 and discharged on April 23, 2020. Diverticulitis -CT Abdomen noted mod-severe diverticulitis of descending and sigmoid colon with extraluminal gas and mesenteric gas. -Appreciate General surgery recs -Continue conservative measures -IV antibiotics transitioned to oral cipro and flagyl. Discharged with 9 days of PO cipro and flagyl -advance diet to low fiber currently. Advised to continue with low fiber diet for 2-4 weeks. handout given on discharge. -pain management as needed with tylenol and PO Percocet prn pain -Encourage ambulation -Miralax prn -f/u with PCP for colonoscopy needed in 4-8weeks. SVT/Atral tachycardia -Had a run of SVT on 03/31 -Also atrial tachycardia noted on tele -Continue home PO Verapamil 100mg daily and metoprolol succinate 100mg daily -consider home holter monitor after discharge -f/u with cardiology after discharge Hypertension -Hydralazine 10mg q6h PRN SBP >180, DBP >110 while hospitalized. -continue home PO verapamil and metoprolol succinate -continue home furosemide and losartan -continue home clonidine Hyperlipidemia -continue home ASA 81mg Fibromyalgia -continue home gabapentin Sleep Apnea -Allowed for use of patients CPAP QHS while hospitalized. -Continue at home (2) Generalized abdominal pain: (3) Hyperlipidemia: (4) HTN (hypertension): (5) Fibromyalgia: (6) Chronic kidney disease, stage II (mild): (7) Sleep apnea: Total Time Total Time Spent Total Time Spent (In Minutes): >30 Discharge Plan Discharge Items Patient Disposition: Home - Self-Care Reason For Visit: DIVERTICULITIS Discharge Diagnosis: Diverticulitis Activity: Per Instructions section Non-emergency contact: Primary Care Provider Call non-emergency contact if: your symptoms worsen and you have a fever Follow-up/Referrals: Pedro Wheeler MD [Primary Care Provider] - (Please contact your primary care provider to schedule a follow-up discharge appointment.) Dong Cabrales MD [Physician] - (Please call Dr. Cabrales's office to schedule a follow-up appointment.) Diet: Low Fiber Addtl Attending Provider Instructions: Mrs. Gooden, you were admitted with an infection in your abdomen called diverticulitis. We treated you with antibiotics and it got better. Please continue to take the antibiotics ciprofloxacin and metronidazole at home for the diverticulitis for 9 more days starting today once you get home. Take the ciprofloxacin TWO times a day and the metronidazole THREE times a day. Continue taking the Percocet for pain. Continue with a low fiber diet at home for the next 2-4 weeks. You will need a colonoscopy in the next 8 weeks. Your primary care provider can help with scheduling. We ask that you followup with your primary care provider within the next week after discharge. We also recommend a cardiology follow-up as well for your heart. Your primary care doctor can refer you and have that set-up/ Should your symptoms return or any of the following: (severe abdominal pain, fevers, chills, night sweats, bloody stools) we ask that you come back to the emergency department. it was a pleasure taking care of you during your time here! Pending Studies at Discharge: No Stand-Alone Forms: My [facility], Smoking Cessation Medications and DC Order Prescriptions: New metronidazole 500 mg Tablet 500 mg PO TID 9 Days Qty: 27 RF: 0 ciprofloxacin HCl 250 mg Tablet 750 mg PO Q12 9 Days Qty: 54 RF: 0 Continued potassium chloride 20 mEq tablet,ER particles/crystals 20 meq PO QAM Qty: 90 RF: 3 verapamil 80 mg tablet 80 mg PO DAILY Qty: 90 RF: 3 losartan 100 mg tablet 100 mg PO QAM Qty: 90 RF: 3 metoprolol succinate 100 mg tablet extended release 24 hr 100 mg PO DAILY Qty: 90 RF: 3 Dulera 100-5 mcg/actuation HFA aerosol inhaler 2 puffs INH DAILY Qty: 13 RF: 3 gabapentin 100 mg capsule 100 mg PO QAM Qty: 90 RF: 1 gabapentin 300 mg capsule 300 mg PO QPM Qty: 90 RF: 1 ergocalciferol (vitamin D2) 50,000 unit capsule 50,000 units PO MONTHLY Qty: 21 RF: 0 docusate sodium 100 mg capsule 100 mg PO BID PRN (Reason: Constipation) RF: 0 omega 1-vtp-umt-fish oil [Fish Oil] 1,000 mg (120 mg-180 mg) Capsule 1 cap PO TID RF: 0 calcium citrate-vitamin D3 [Citracal + D Maximum] 315-250 mg-unit Tablet 2 tab PO DAILY@1200 RF: 0 coQ10 (ubiquinol) 200 mg Capsule 200 mg PO DAILY RF: 0 PreserVision AREDS-2 612-811-04-1 hb-vhir-ds-mg Capsule 1 tab PO BID RF: 0 aspirin [Aspir-81] 81 mg Tablet,Delayed Release (Dr/Ec) 81 mg PO HS RF: 0 albuterol sulfate [Proventil HFA] 90 mcg/actuation Hfa Aerosol Inhaler 2 puff INHALATION Q6H PRN (Reason: Shortness Of Breath) RF: 0 clonidine HCl 0.1 mg tablet 0.1 mg PO QPM RF: 0 clonidine HCl 0.1 mg tablet 0.2 mg PO QAM RF: 0 furosemide 20 mg tablet 20 mg PO BID RF: 0 Discontinued amoxicillin-pot clavulanate [Augmentin] 875-125 mg tablet 1 tab PO BID Qty: 20 RF: 0 Discharge Orders: Discharge Order (Routine); Ordered 04/23/20 Ordered By: Mary Mathis/Other Patient Handouts: Diet Low Residue, Discharge Instructions for Diverticulitis Admission Data Admit Date/Time: 04/17/20 21:20 Attending Provider: Yrn Andrade Admit Provider: Mathew Rosario Primary Care Provider: Pedro Wheeler Other Providers: Mathew Rosario ; Dong Cabrales Other Interventions: Discharge Summary Assessment (RN) Last Done: 04/23/20 11:12 DC Date/Time DO NOT enter until pt leaves facility: 04/23/20 13:29 Supervising Physician Co-Signing Physician Notes I personally examined the patient and verified all doty points of history and exam, discussed case, and agree with decision making with Dr Quiñones. eating well pain well controlled very worried about BP and BP meds. reviewed home BP log - mostly between 130-160 systolic, no events of true hypotension - lowest were a few isolated ~100 SBP readings. asked about the 60 SBP she mentpilar maddox yesterday and she noted that mustve been months ago. discussed med management, BP ranges, intermediate vs short term management, in hospital vs home management, provoking factors for HTN in hospital, evidence on management, etc. also discussed home meds and then extensively discussed lifestyle measures that could help control HTN. discussed SVT. discussed abx and ongoing management for diverticulitis. vitals noted nad heent nc at mmm breathing unlabored no accessory muscles good effort skin no rashes no pallor or icterus diverticulitis w perforation - showing improvement. doing well on low fiber and PO abx - home today, 2wks of abx total, PCP and surgical follow up HTN - extensive discussions. home on home meds. ongoing vigilance on BP readings at home. heavily encouraged and educated on lifestyle measures (working to 30mins light cardio daily and meditereannean style diet) that could make BP easier to control SVT - resolved. does not appear to have happened before - for now, watchful waiting (probably holter or event monitor as outpt), home meds would be helpfully suppressive, has ALEXIA as a risk but does wear CPAP routinely. taught vagal maneuvers and when to seek care otherwise as above, stable for home Resident Activity Tracking Resident Involvement: Resident Care Provided Care Provided: Adult Hospital Medicine
[2020-04-23] MEDS: METOPROLOL SUCC 50MG EXT REL TAB PO SCH (08:04)
[2020-04-23] MEDS: ASPIRIN 81 MG ECTAB PO SCH (08:04)
[2020-04-23] MEDS: FLUTICASONE/VILANTEROL 100/25MCG 14 PUFFS/INHALER INH SCH (08:04)
[2020-04-23] MEDS: FUROSEMIDE 20 MG TAB PO SCH (08:05)
[2020-04-23] MEDS: GABAPENTIN 100 MG CAP PO SCH (08:07)
[2020-04-23] MEDS: metroNIDAZOLE 500 MG TAB PO SCH ×2 (08:07→12:52)
[2020-04-23] MEDS: CIPROFLOXACIN 250 MG TAB PO SCH (08:07)
[2020-04-23] MEDS: VERAPAMIL HCL 40 MG TAB PO SCH (08:07)
[2020-04-23] MEDS: LOSARTAN POTASSIUM 50 MG TAB PO SCH (09:40)
[2020-04-23 09:55] LABS: Basophils # (auto) 0.03 K/uL (0-0.2); Basophils % (auto) 0.5 %; Eosinophils # (auto) 0.14 K/uL (0-0.5); Eosinophils % (auto) 2.2 %; Hematocrit (blood only) 39.6 % (37-47); Hemoglobin 12.7 g/dL (12.0-16.0); Immature Granulocytes # (auto) 0.06 K/uL (0.00-0.02); Lymphocytes # (auto) 0.96 K/uL (1.2-3.4); Lymphocytes % (auto) 15.3 %; Mean Corpuscular Hemoglobin 31.7 pg (25-34); Mean Corpuscular Hgb Conc 32.1 g/dL (32-36); Mean Corpuscular Volume 98.8 fL (80-100); Mean Platelet Volume 10.7 fL (7.4-10.4); Monocytes # (auto) 0.54 K/uL (0.11-0.59); Monocytes % (auto) 8.6 %; Neutrophils # (auto) 4.55 K/uL (1.4-6.5); Neutrophils % (auto) 72.4 %; Platelet Count 269 K/uL (130-400); RDW Coefficient of Variation 13.8 % (11.5-14.5); RDW Standard Deviation 49.6 fL (36.4-46.3); Red Blood Count 4.01 M/uL (4.2-5.4); White Blood Count 6.28 K/uL (4.8-10.8)
[2020-04-23 10:26] LABS: Albumin Globulin Ratio 0.6 (0.9-2); Albumin Level 2.8 gm/dl (3.4-5.0); BUN Creatinine Ratio 10.5 (10-20); Bilirubin,Total 0.6 mg/dl (0.2-1); Calcium 8.3 mg/dl (8.5-10.1); Creatinine Clr Calc Pharmacy 56.8 ml/min; Est GFR (African American) 61.4; Globulin 4.8 gm/dl (2.5-4.0); Potassium 3.5 mmol/L (3.5-5.1); Total Protein 7.6 gm/dl (6.4-8.2)
--- NOTE | 2020-04-23 10:26 | Surgery Progress Note ---
Date of Service April 23, 2020 Assessment & Plan (1) Diverticulitis large intestine: clinically improved ok for d/c f/u with Dr. Cabrales in 2-3 weeks. Subjective feeling much better today. no new complaints. Physical Exam Physical Exam: alert. nad abd: soft. nt. nd. Results & Data Vital Signs (Past 12 Hours) Vital Signs Temp Pulse Pulse Resp BP BP Pulse Ox 04/23/20 07:52 37.0 C 70 18 169/79 H 93 04/23/20 07:35 103 H 04/23/20 03:31 77 18 94 04/23/20 02:57 36.6 C 89 18 139/81 95 04/22/20 23:00 36.4 C L 86 18 172/92 H PG Care Time/CCT Total # of Minutes Spent Total Time Spent with Patient: Total time spent is greater than 50% in coordination of care (as documented) at patient's floor/unit and/or counseling patient: Coding Level of Care Code 55845 Subseq Hosp Care Lvl 2 Diagnoses Diverticulitis large intestine K57.32
[2020-04-23] MEDS ORDERED: metroNIDAZOLE 500 MG TAB PO STA (13:06)
[2020-04-23] MEDS ORDERED: CIPROFLOXACIN 500MG HOME PACK PO ONE (13:06)
[2020-04-23] MEDS ORDERED: metroNIDAZOLE 500 MG TAB PO SCH (13:15)
--- NOTE | 2020-04-23 13:16 | Billing Data ---
Date of Service April 23, 2020 Coding Level of Care Code D/C Day Management >30 mins
== END 2020-04-23 13:29 | disposition home or self-care (01) | DRG 392 ==
LOC: ED 16:58 → 2N 21:20 → SUATTDRO 21:20 → 2N 22:00